=== PATIENT | female | born 1970 | race Two or more races ===

== ENCOUNTER 2018-08-02 07:46 | Inpatient (IN) | payer MEDICAID ==
[~2018-08-02] VITALS: Ht 157.5 cm; Wt 79.4 kg
[~2018-08-02 07:46] MED LIST: AMBIEN10 MG ORAL; CALCITRIOL0.25 MCG PO; CARVEDILOL3.125 MG ORAL; CELLCEPT250 MG ORAL; CIPROFLOXACIN250 MG PO; COREG25 MG ORAL; KEFLEX500 M1 ORAL; MACROBID100 MG ORAL; MAG-OX 400400 MG ORAL; MYCOPHENOLATE500 MG PO; OYSCO 500+D TA1 EAC1 PO; PREDNISONE1 MG PO; PROGRAF0.5 MG PO; TYLENOL EXTRA500 MG ORAL; magnesium sulfate
[2018-08-02] MEDS ORDERED: BENAZEPRIL HCL10 MG ORAL (07:51)
[2018-08-02] MEDS ORDERED: Metoclopramide 10mg/2ml Inj IVP ONE (08:00)
[2018-08-02] MEDS ORDERED: DiphenhydrAMINE 50mg/ml Inj IVP ONE (08:00)
--- NOTE | 2018-08-02 08:06 | Emergency Room Report ---
History of Present Illness General Chief Complaint: Abdominal Pain Source: Patient, EMS Present Illness HPI Patient presents with complaints of lower abdominal pain bilateral suprapubic some radiation to the right flank area Reports increased vomiting Low-grade fever patient feels that she has a bladder infection Denies any chest pain or shortness of breath Denies any fall or trauma patient reports that her urine also has foul smell and she has some discomfort With urination Allergies: Coded Allergies: MORPHINE (Unverified Allergy, Unknown, 03/22/14) SULFA (SULFONAMIDE ANTIBIOTICS) (Unverified Allergy, Unknown, 03/22/14) Uncoded Allergies: SULFA (Allergy, Unknown, 08/02/18) Patient History Past Medical History: see triage record Pertinent Family History: none Now: No Reviewed Nursing Documentation: PMH: Agreed; PSxH: Agreed Nursing Documentation-PMH Hx Cardiac Problems: Yes Hx Hypertension: Yes Hx Cancer: No Hx Gastrointestinal Problems: Yes - Hepatitis C Hx Dialysis: Yes - hx of dialysis,kidney transplant in 2004,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 Hx Neurological Problems: No Review of Systems All Other Systems: negative except mentioned in HPI Physical Exam Vital Signs Date Time Temp Pulse Resp B/P (MAP) Pulse Ox O2 Delivery O2 Flow Rate FiO2 08/02/18 07:40 102.9 108 19 166/79 (108) 99 Room Air Sp02 EP Interpretation: reviewed, normal General Appearance: mild distress - Appears uncomfortable Head: normocephalic, atraumatic Eyes: bilateral eye PERRL, bilateral eye EOMI ENT: hearing grossly normal, normal pharynx, TMs + canals normal, uvula midline Neck: full range of motion, supple, no meningismus, no bony tend Respiratory: lungs clear, normal breath sounds, no rhonchi, no respiratory distress, no retraction, no accessory muscle use Cardiovascular #1: normal peripheral pulses, regular rate, rhythm, no edema, no gallop, no JVD, no murmur Gastrointestinal: normal bowel sounds, non tender - On palpation however subjectively points to suprapubic area bilateral, soft, no mass, no organomegaly , non-distended, no guarding, no hernia, no pulsatile mass, no rebound Genitourinary: no CVA tenderness Musculoskeletal: normal inspection Neurologic: oriented x3, responsive, 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 tested, motor strength/ tone normal, sensory intact Psychiatric: mood/affect normal Skin: normal color, no rash, warm/dry, palpation normal Lymphatic: normal inspection, no adenopathy Medical Decision Making Diagnostic Impression: Primary Impression: Pyelonephritis ER Course With the patient's history and examination, multiple differentials considered, including but not limited to , ectopic , ovarian torsion, gastritis, cholecystitis, pancreatitis, appendicitis Given the patient's complex history and Comorbidities given the severity of the UTI and the patient's presentation she requires more aggressive admission IV hydration and antibiotics CT imaging reveals some question of Inflammation around the transplant as well Labs Test 08/02/18 07:58 White Blood Count 11.9 K/UL (4.8-10.8) Red Blood Count 3.77 M/UL (4.20-5.40) Hemoglobin 12.4 G/DL (12.0-16.0) Hematocrit 33.9 % (37.0-47.0) Mean Corpuscular Volume 90 FL (80-99) Mean Corpuscular Hemoglobin 32.9 PG (27.0-31.0) Mean Corpuscular Hemoglobin Concent 36.6 G/DL (32.0-36.0) Red Cell Distribution Width 11.4 % (11.6-14.8) Platelet Count 237 K/UL (150-450) Mean Platelet Volume 7.6 FL (6.5-10.1) Neutrophils (%) (Auto) % (45.0-75.0) Lymphocytes (%) (Auto) % (20.0-45.0) Monocytes (%) (Auto) % (1.0-10.0) Eosinophils (%) (Auto) % (0.0-3.0) Basophils (%) (Auto) % (0.0-2.0) Urine Color Pale yellow Urine Appearance Cloudy Urine pH 8 (4.5-8.0) Urine Specific [place] 1.010 (1.005-1.035) Urine Protein 3+ (NEGATIVE) Urine Glucose (UA) Negative (NEGATIVE) Urine Ketones Negative (NEGATIVE) Urine Blood 5+ (NEGATIVE) Urine Nitrite Negative (NEGATIVE) Urine Bilirubin Negative (NEGATIVE) Urine Urobilinogen Normal MG/DL (0.0-1.0) Urine Leukocyte Esterase 3+ (NEGATIVE) Urine RBC 10-15 /HPF (0 - 2) Urine WBC 30-40 /HPF (0 - 2) Urine Squamous Epithelial Cells Many /LPF (NONE/OCC) Urine Bacteria Few /HPF (NONE) Urine HCG, Qualitative Negative (NEGATIVE) Sodium Level 139 MMOL/L (136-145) Potassium Level 4.0 MMOL/L (3.5-5.1) Chloride Level 101 MMOL/L (98-107) Carbon Dioxide Level 23 MMOL/L (21-32) Anion Gap 15 mmol/L (5-15) Blood Urea Nitrogen 19 mg/dL (7-18) Creatinine 1.2 MG/DL (0.55-1.30) Estimat Glomerular Filtration Rate 48.6 mL/min (>60) Glucose Level 124 MG/DL (74-106) Calcium Level 9.2 MG/DL (8.5-10.1) Total Bilirubin 0.8 MG/DL (0.2-1.0) Aspartate Amino Transf (AST/SGOT) 15 U/L (15-37) Alanine Aminotransferase (ALT/SGPT) 19 U/L (12-78) Alkaline Phosphatase 46 U/L (46-116) Total Protein 8.6 G/DL (6.4-8.2) Albumin 3.7 G/DL (3.4-5.0) Globulin 4.9 g/dL Albumin/Globulin Ratio 0.8 (1.0-2.7) Lipase 130 U/L (73-393) Rhythm Strip Diag. Results EP Interpretation: yes Rate: 77 Rhythm: NSR, no PVC's, no ectopy CT/MRI/US Diagnostic Results CT/MRI/US Diagnostic Results : Impression CT abdomen pelvisImpression: Right iliac fossa transplant kidney. This appears minimally enlarged and there is suggestion of slight perinephric inflammation as well as periureteral inflammation. This could indicate ureteritis/nephritis. There is very questionable slight indistinctness of the bladder wall as well, could indicate cystitis in the appropriate clinical setting. Correlation with clinical laboratory findings is recommended 6.6 cm unilocular right ovarian cyst. Given the midline location of the cyst and ovary and prominence of the pedicle, the possibility of torsion should be considered. Correlation with clinical findings is recommended, consideration for ultrasound of the pelvis if clinically indicated Limited assessment of the GI tract, due to lack of enteric contrast administration. Atrophic wiyot kidneys Equivocal colonic diverticulosis. No evidence of diverticulitis Last Vital Signs Date Time Temp Pulse Resp B/P (MAP) Pulse Ox O2 Delivery O2 Flow Rate FiO2 08/02/18 07:40 102.9 108 19 166/79 (108) 99 Room Air Status: improved Disposition: ADMITTED INPATIENT Condition: Serious Davie Valdez DO Aug 02, 2018 08:06
--- NOTE | 2018-08-02 08:08 | NUR ---
ED Nurse Note: Pt BIBA from home due to R sided abdominal pain that radiates to back with nausea and diarrhea since yesterday. Pain 9/10 varinder. Last bowel movement was this morning. No emesis noted at arrival. AOx4, BP 167/92, HR 108, ERMD awre. Will cont to monitor.
[2018-08-02 08:09] LABS: APPEARANCE,URINE CLOUDY; BILIRUBIN, URINE NEGATIVE (NEGATIVE); COLOR,URINE PALE YELLOW; GLUCOSE, URINE (UA) NEGATIVE (NEGATIVE); HEMATOCRIT 33.9 % (37.0-47.0); HEMOGLOBIN 12.4 G/DL (12.0-16.0); KETONES,URINE NEGATIVE (NEGATIVE); LEUKOCYTE ESTERASE ,URINE 3+ (NEGATIVE); MEAN CORPUSCULAR VOLUME 90 FL (80-99); NITRITE,URINE NEGATIVE (NEGATIVE); PH,URINE 8 (4.5-8.0); PLATELET COUNT 237 K/UL (150-450); PROTEIN,URINE 3+ (NEGATIVE); RED BLOOD COUNT 3.77 M/UL (4.20-5.40); RED CELL DISTRIBUTION WIDTH 11.4 % (11.6-14.8); UROBILINOGEN,URINE NORMAL MG/DL (0.0-1.0); WHITE BLOOD COUNT 11.9 K/UL (4.8-10.8)
[2018-08-02 08:10] VITALS: BP 167/92
[2018-08-02 08:18] LABS: ANION GAP 15 mmol/L (5-15); BLOOD UREA NITROGEN 19 mg/dL (7-18); CALCIUM 9.2 MG/DL (8.5-10.1); CARBON DIOXIDE 23 MMOL/L (21-32); CHLORIDE 101 MMOL/L (98-107); CREATININE 1.2 MG/DL (0.55-1.30); SODIUM 139 MMOL/L (136-145)
[2018-08-02 08:23] LABS: ALANINE AMINOTRANSFERASE 19 U/L (12-78); ALBUMIN 3.7 G/DL (3.4-5.0); ALBUMIN/GLOBULIN RATIO 0.8 (1.0-2.7); ALKALINE PHOSPHATASE 46 U/L (46-116); ASPARTATE AMINO TRANSFERASE 15 U/L (15-37); BILIRUBIN,TOTAL 0.8 MG/DL (0.2-1.0)
--- NOTE | 2018-08-02 08:34 | NUR ---
ED Nurse Note: Pt down to CT for imaging, confirmed with ERMD w/o Contrast.
--- NOTE | 2018-08-02 08:56 | NUR ---
ED Nurse Note: Pt back from CT, no sign of acute distress.
--- NOTE | 2018-08-02 09:22 | Diagnostic Imaging Report ---
Indication: Lower abdominal pain, nausea, vomiting, low-grade fever Technique: Spiral acquisitions obtained through the abdomen and pelvis. No oral contrast utilized, per emergency room physician request No IV contrast utilized, per emergency room physician request.. Multiplanar reconstructions were generated. Total dose length product 840.72 mGycm. CTDIvol(s) 16.82 mGy. Dose reduction achieved using automated exposure control Comparison: None Findings: There is a right iliac fossa transplant kidney. There is a slight degree of perinephric fat stranding, particularly surrounding the upper pole. There is slight fat stranding surrounding the transplant ureter as well. No definite bladder wall thickening, although the peripheral bladder margins appear equivocally very slightly indistinct. No definite hydronephrosis. No definite focal renal mass, although lack of IV contrast limits assessment for such. The robinson kidneys are atrophic. Lack of enteric contrast limits assessment of the GI tract. There are equivocally a few colonic diverticula. No evidence of diverticulitis. The appendix is normal. No small bowel distention. Distal esophagus, stomach, duodenum are unremarkable. Lack of IV contrast limits assessment of the other solid organs. The liver, gallbladder, bile ducts, pancreas, spleen, adrenals are all grossly unremarkable. No retroperitoneal or mesenteric mass or adenopathy. There is a large 6.6 cm long axis dimension unilocular cyst coming off of the right ovary. This is situated in the midline. The wall does not appear to be thickened up but there is questionably slight thickening of the ovarian pedicle. There is an intrauterine device in place. The included lung bases are clear. The bones demonstrate mild degenerative changes of the lumbosacral junction Impression: Right iliac fossa transplant kidney. This appears minimally enlarged and there is suggestion of slight perinephric inflammation as well as periureteral inflammation. This could indicate ureteritis/nephritis. There is very questionable slight indistinctness of the bladder wall as well, could indicate cystitis in the appropriate clinical setting. Correlation with clinical laboratory findings is recommended 6.6 cm unilocular right ovarian cyst. Given the midline location of the cyst and ovary and prominence of the pedicle, the possibility of torsion should be considered. Correlation with clinical findings is recommended, consideration for ultrasound of the pelvis if clinically indicated Limited assessment of the GI tract, due to lack of enteric contrast administration. Atrophic robinson kidneys Equivocal colonic diverticulosis. No evidence of diverticulitis Findings discussed by phone with Dr. Valdez in the emergency room at the time of interpretation The CT scanner at [facility] is accredited by the [employer] and the scans are performed using protocols designed to limit radiation exposure to as low as reasonably achievable to attain images of sufficient resolution adequate for diagnostic evaluation.
[2018-08-02] MEDS ORDERED: cefTRIAXone 1 GM in NS 55 ML IVPB ONE (09:30)
[2018-08-02] MEDS ORDERED: Acetaminophen 500mg (ES) tab ORAL ONE (10:40)
[2018-08-02] MEDS: Acetaminophen 500mg (ES) tab ORAL ONE ×4 (10:41→10:59)
[2018-08-02 11:29] VITALS: BP 174/94
[2018-08-02] MEDS ORDERED: Morphine Sulfate 4mg/ml Inj (IV USE ONLY) IVP PRN (11:30)
[2018-08-02] MEDS ORDERED: Enoxaparin 40mg Inj SUBQ SCH (12:00)
[2018-08-02 12:01] VITALS: BP 135/79
--- NOTE | 2018-08-02 12:09 | NUR ---
ED Nurse Note: Report given to BERT Johnson at ext [phone]. Pt to be transfered to room 414-2 on [facility] per protocol.
[2018-08-02] MEDS ORDERED: Enoxaparin 30mg Inj SUBQ SCH (12:30)
[2018-08-02 13:00] VITALS: BP 121/62
--- NOTE | 2018-08-02 14:00 | NUR ---
NURSE NOTES: Dr butler ordered morphine but pt noted allergy to morphine, Dr notified and stated he will F/U. pharmacy endorsed. will continue to monitor.
--- NOTE | 2018-08-02 14:28 | NUR ---
NURSE NOTES: Received pt from RN YAEL JAIME. Pt is alert and orient x4 and speaks Malaysian. pt is in RA, no SOB or acute respiratory distress noted. pt has intact iv access R wrist 22g is running well. pt has fever and Dr FLANAGAN is notified about T, WBC and lab results, ordered Tylenol, noted and carried out. pt consumed lunch and tolerate well. all needs attended, bed is locked and is in the lowest position. call light within easy reach. will continue to monitor.
[2018-08-02 16:00] VITALS: BP 108/56
--- NOTE | 2018-08-02 17:20 | History and Physical ---
History of Present Illness General Date patient seen: Aug 02, 2018 Time patient seen: 15:00 Reason for Hospitalization: Abdominal Pain Present Illness HPI 47 y F with history of ESRD due to hypertensive nephropathy and emergency, s/p HD for 5 years and finally renal transplantation at [facility] on 09/12/04. She follows with the nephrology clinic at [facility] [place] and is in appropriate post renal transplant suppressive therapy with Prograft and Cellcept. She had a prior hospitalization 3 years ago at [facility] [place] due to Pyelonephritis and today presented to the ED with complaints of lower abdominal pain bilateral suprapubic some radiation to the right flank area, increased vomiting this morning and Low-grade fever. The patient had a temperature of 102 F at home and in the ED was found to have a UTI, CT scan concerning for perirenal stranding. Admission is requested. IVF and Ceftriaxone IV was started. Normal Lactate and no hemodynamic compromise. Blood cultures were not done in ED and added on admission orders. Allergies: Coded Allergies: MORPHINE (Unverified Allergy, Unknown, 03/22/14) SULFA (SULFONAMIDE ANTIBIOTICS) (Unverified Allergy, Unknown, 03/22/14) Uncoded Allergies: SULFA (Allergy, Unknown, 08/02/18) Medication History Scheduled Benazepril Hcl* (Benazepril Hcl*), 10 MG ORAL DAILY, (Reported) Calcitriol (Calcitriol), 0.25 MCG PO TWICE A DAY, (Reported) Calcium Carbonate/Vitamin D3 ([place] 500+D Tablet), 1 EACH PO THREE TIMES A DAY, (Reported) Carvedilol (Coreg), 25 MG ORAL BID, (Reported) Cephalexin (Cephalexin), 500 MG ORAL FOUR TIMES A DAY Magnesium Oxide (Magnesium Oxide), 400 MG ORAL THREE TIMES A DAY, (Reported) Mycophenolate Mofetil (Cellcept), 500 MG ORAL EVERY 12 HOURS, (Reported) Mycophenolate Mofetil (Mycophenolate Mofetil), 500 MG PO TWICE A DAY, (Reported) Nitrofurantoin Monohyd/M-Cryst (Nitrofurantoin [place]-Mcr 100 mg), 100 MG ORAL Q12H Prednisone (Prednisone), 3 MG PO DAILY, (Reported) Tacrolimus (Prograf), 0.5 MG PO BID, (Reported) Scheduled PRN Acetaminophen* (Tylenol Extra Strength*), 500 MG ORAL Q6H PRN for Mild Pain/ Temp > 100.5, (Reported) Zolpidem Tartrate* (Ambien*), 10 MG ORAL BEDTIME PRN for Insomnia, (Reported) Miscellaneous Medications [magnesium sulfate], (Reported) Patient History Healthcare decision maker Resuscitation status Full Code Advanced Directive on File No Review of Systems Genitourinary: Reports: dysuria, frequency Physical Exam General Appearance: WD/WN Lines, tubes and drains: peripheral HEENT: normocephalic, atraumatic Neck: non-tender Respiratory/Chest: chest wall non-tender, lungs clear Cardiovascular/Chest: normal peripheral pulses, normal rate Abdomen: normal bowel sounds, non tender Skin Exam: normal pigmentation Neurologic: supervisor agency appointments II-XII grossly normal Last 24 Hour Vital Signs Date Time Temp Pulse Resp B/P (MAP) Pulse Ox O2 Delivery O2 Flow Rate FiO2 08/02/18 16:00 99.6 87 18 108/56 (73) 96 08/02/18 15:32 100.0 08/02/18 13:00 101.4 102 19 121/62 (81) 96 08/02/18 13:00 Room Air 08/02/18 12:11 99.5 107 20 135/79 100 Room Air 08/02/18 12:01 99.5 107 20 135/79 100 Room Air 08/02/18 11:29 99.5 101 18 174/94 100 Room Air 08/02/18 11:29 99.5 08/02/18 08:10 102.9 108 19 167/92 99 Room Air 08/02/18 08:07 108 19 Room Air 08/02/18 07:40 102.9 108 19 166/79 (108) 99 Room Air Laboratory Tests Test 08/02/18 07:58 White Blood Count 11.9 K/UL (4.8-10.8) H Red Blood Count 3.77 M/UL (4.20-5.40) L Hemoglobin 12.4 G/DL (12.0-16.0) Hematocrit 33.9 % (37.0-47.0) L Mean Corpuscular Volume 90 FL (80-99) Mean Corpuscular Hemoglobin 32.9 PG (27.0-31.0) H Mean Corpuscular Hemoglobin Concent 36.6 G/DL (32.0-36.0) H Red Cell Distribution Width 11.4 % (11.6-14.8) L Platelet Count 237 K/UL (150-450) Mean Platelet Volume 7.6 FL (6.5-10.1) Neutrophils (%) (Auto) % (45.0-75.0) Lymphocytes (%) (Auto) % (20.0-45.0) Monocytes (%) (Auto) % (1.0-10.0) Eosinophils (%) (Auto) % (0.0-3.0) Basophils (%) (Auto) % (0.0-2.0) Differential Total Cells Counted 100 Neutrophils % (Manual) 84 % (45-75) H Lymphocytes % (Manual) 11 % (20-45) L Monocytes % (Manual) 5 % (1-10) Eosinophils % (Manual) 0 % (0-3) Basophils % (Manual) 0 % (0-2) Band Neutrophils 0 % (0-8) Platelet Estimate Adequate Platelet Morphology Normal Urine Color Pale yellow Urine Appearance Cloudy Urine pH 8 (4.5-8.0) Urine Specific [place] 1.010 (1.005-1.035) Urine Protein 3+ (NEGATIVE) H Urine Glucose (UA) Negative (NEGATIVE) Urine Ketones Negative (NEGATIVE) Urine Blood 5+ (NEGATIVE) H Urine Nitrite Negative (NEGATIVE) Urine Bilirubin Negative (NEGATIVE) Urine Urobilinogen Normal MG/DL (0.0-1.0) Urine Leukocyte Esterase 3+ (NEGATIVE) H Urine RBC 10-15 /HPF (0 - 2) H Urine WBC 30-40 /HPF (0 - 2) H Urine Squamous Epithelial Cells Many /LPF (NONE/OCC) H Urine Bacteria Few /HPF (NONE) Urine HCG, Qualitative Negative (NEGATIVE) Sodium Level 139 MMOL/L (136-145) Potassium Level 4.0 MMOL/L (3.5-5.1) Chloride Level 101 MMOL/L (98-107) Carbon Dioxide Level 23 MMOL/L (21-32) Anion Gap 15 mmol/L (5-15) Blood Urea Nitrogen 19 mg/dL (7-18) H Creatinine 1.2 MG/DL (0.55-1.30) Estimat Glomerular Filtration Rate 48.6 mL/min (>60) Glucose Level 124 MG/DL (74-106) H Calcium Level 9.2 MG/DL (8.5-10.1) Total Bilirubin 0.8 MG/DL (0.2-1.0) Aspartate Amino Transf (AST/SGOT) 15 U/L (15-37) Alanine Aminotransferase (ALT/SGPT) 19 U/L (12-78) Alkaline Phosphatase 46 U/L (46-116) Total Protein 8.6 G/DL (6.4-8.2) H Albumin 3.7 G/DL (3.4-5.0) Globulin 4.9 g/dL Albumin/Globulin Ratio 0.8 (1.0-2.7) L Lipase 130 U/L (73-393) Height (Feet): 5 Height (Inches): 2.00 Weight (Pounds): 175 Medications Current Medications Medications (Trade) Dose Ordered Sig/Aroldo Route PRN Reason Start Time Stop Time Status Last Admin Dose Admin Acetaminophen (Tylenol) 650 mg Q6H PRN ORAL Mild Pain/Temp > 100.5 08/02/18 14:30 09/01/18 14:29 08/02/18 15:02 Ceftriaxone Sodium 1 gm/ Dextrose 55 ml @ 110 mls/hr DAILY IVPB 08/03/18 09:00 08/10/18 08:59 Dextrose (Dextrose 50%) 25 ml Q30M PRN IV Hypoglycemia 08/02/18 11:30 09/01/18 11:29 Dextrose (Dextrose 50%) 50 ml Q30M PRN IV Hypoglycemia 08/02/18 11:30 09/01/18 11:29 Diphenhydramine HCl (Benadryl) 25 mg Q6H PRN ORAL Itching/Pruritis 08/02/18 11:30 09/01/18 11:29 Docusate Sodium (Colace) 100 mg EVERY 12 HOURS ORAL 08/02/18 21:00 09/01/18 20:59 Enoxaparin Sodium (Lovenox) 40 mg DAILY SUBQ 08/03/18 09:00 09/02/18 08:59 Lorazepam (Ativan) 1 mg Q4H PRN ORAL For Anxiety 08/02/18 11:30 08/09/18 11:29 Morphine Sulfate (Morphine Sulfate) 4 mg Q2H PRN IVP Severe Pain (Pain Scale 7-10) 08/02/18 11:30 08/09/18 11:29 UNV Ondansetron HCl (Zofran) 4 mg Q6H PRN IVP Nausea & Vomiting 08/02/18 11:30 09/01/18 11:29 Sodium Chloride 1,000 ml @ 100 mls/hr Q10H IVLG 08/02/18 12:21 09/01/18 12:20 08/02/18 12:50 Temazepam (Restoril) 15 mg HSPRN PRN ORAL Insomnia 08/02/18 21:00 08/09/18 20:59 Assessment/Plan Status: doing well, stable Assessment/Plan: 47 y/o F with prior ESRD on HD for 5 years and now s/p Renal transplantation since 2004 admitted with: # Pyelonephritis Continue IVF hydration Ceftriaxone IV pending culture Monitor temperature and vital signs, once fever is improved and urine cx data available can transition to PO antibiotics # s/p Renal transplant since 2004 Continue Prograft, cellcept, prednisone, spironolactone therapy. Consider nephrology consult if needed. Patient has been stable in her outpatient regimen. # Hypertension Continue Carvedilol, benazepril Monitor BP # History of R PCO Stable # Disposition Observation. Pending improvement, might need to be converted to inpatient. DVT ppx ambulatory Full code. Rafaela Redd MD Aug 02, 2018 17:20
--- NOTE | 2018-08-02 19:44 | NUR ---
HAND-OFF: Report given to BERT NEGRON.
[2018-08-02 20:00] VITALS: BP 158/83
--- NOTE | 2018-08-02 20:13 | NUR ---
NURSE NOTES: Received report from BERT Johnson. Patient A&Ox4, Lebanese speaking. On room air, no signs of distress or labored breathing. IV intact, patent, and infusing IV fluids. Bed in lowest position with call light in reach. Will continue with plan of care.
[2018-08-02] MEDS: Docusate 100mg cap ORAL SCH (20:58)
--- NOTE | 2018-08-02 21:30 | NUR ---
NURSE NOTES: Called MD to follow up with pain medication since morphine is contraindicated due to allergy. Left message. Waiting for response.
[2018-08-03] VITALS (7 sets, daily range): BP systolic 118–182; BP diastolic 71–99
--- NOTE | 2018-08-03 05:45 | NUR ---
NURSE NOTES: Called MD again to leave message about pain medication, blood pressure, and anti-rejection medication for kidney transplant. No answer. Charge nurse aware.
[2018-08-03 06:28] LABS: BASOPHILS % (AUTO) 0.3 % (0.0-2.0); EOSINOPHILS % (AUTO) 0.1 % (0.0-3.0); HEMATOCRIT 32.5 % (37.0-47.0); HEMOGLOBIN 11.6 G/DL (12.0-16.0); LYMPHOCYTES % (AUTO) 8.6 % (20.0-45.0); MEAN CORPUSCULAR VOLUME 91 FL (80-99); PLATELET COUNT 186 K/UL (150-450); RED BLOOD COUNT 3.56 M/UL (4.20-5.40); RED CELL DISTRIBUTION WIDTH 11.6 % (11.6-14.8); WHITE BLOOD COUNT 9.5 K/UL (4.8-10.8)
[2018-08-03 06:54] LABS: ANION GAP 12 mmol/L (5-15); BLOOD UREA NITROGEN 10 mg/dL (7-18); CALCIUM 8.4 MG/DL (8.5-10.1); CARBON DIOXIDE 25 MMOL/L (21-32); CHLORIDE 104 MMOL/L (98-107); CREATININE 1.2 MG/DL (0.55-1.30); POTASSIUM 3.4 MMOL/L (3.5-5.1); SODIUM 141 MMOL/L (136-145)
--- NOTE | 2018-08-03 07:35 | NUR ---
NURSE NOTES: Patient received resting in bed, alert and oriented. Responds appropriately. Denies pain or SOB at this time. RN to inquire physician regarding kidney transplant pills. IV site on right wrist patent and intact, running fluids at 100cc/hr. Bed locked in lowest position, call light placed within reach. Will continue to monitor.
--- NOTE | 2018-08-03 07:36 | NUR ---
HAND-OFF: Report given to BERT Chavez (Liz).
[2018-08-03] MEDS: Docusate 100mg cap ORAL SCH ×2 (08:28→20:48)
[2018-08-03] MEDS: cefTRIAXone 1gm/D5W 55ml IVPB SCH ×2 (08:28)
[2018-08-03] MEDS: Enoxaparin 40mg Inj SUBQ SCH (08:30)
--- NOTE | 2018-08-03 10:14 | NUR ---
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
--- NOTE | 2018-08-03 10:51 | NUR ---
*-* NO INSURANCE INFORMATION UNABLE TO SEND CLINICALS OR REVIEWS *-*
--- NOTE | 2018-08-03 10:54 | NUR ---
*-* INSURANCE *-* ALL CLINICALS AND REVIEWS HAVE BEEN FAXED TO: [facility] CHON: LESTER OLIVEIRA# [id number] F:[phone]
--- NOTE | 2018-08-03 17:04 | General Progress Note ---
Assessment/Plan Status: doing well, stable Assessment/Plan: Assessment/Plan: 47 y/o F with prior ESRD on HD for 5 years and now s/p Renal transplantation since 2004 admitted with: # Sepsis due to Pyelonephritis - Continue IVF hydration - Ceftriaxone IV pending culture, growing Gram neg rods, WBC improved - Monitor temperature and vital signs, once fever is improved and urine cx data available can transition to PO antibiotics # s/p Renal transplant since 2004 - Continue Prograft, cellcept, prednisone, spironolactone therapy. - Consider nephrology consult if needed. Patient has been stable in her outpatient regimen. # Hypertension - Continue Carvedilol, benazepril - Monitor BP # History of R PCO - Stable # Disposition Admit as inpatient. DVT ppx ambulatory Full code. Subjective Date patient seen: Aug 03, 2018 Time patient seen: 17:00 ROS Limited/Unobtainable: No Allergies: Coded Allergies: MORPHINE (Unverified Allergy, Unknown, 03/22/14) SULFA (SULFONAMIDE ANTIBIOTICS) (Unverified Allergy, Unknown, 03/22/14) Uncoded Allergies: SULFA (Allergy, Unknown, 08/02/18) Subjective Overnight events reviewed, no chest pain or dysponea, States abd pain improved, able to tolerate PO however slightly nauseous, is still having fevers, temp max over 102 Objective Last 24 Hour Vital Signs Date Time Temp Pulse Resp B/P (MAP) Pulse Ox O2 Delivery O2 Flow Rate FiO2 08/03/18 16:00 99.3 96 17 149/88 (108) 97 08/03/18 14:13 98.6 08/03/18 11:59 102.4 92 17 158/80 (106) 98 08/03/18 09:00 Room Air 08/03/18 08:00 99.7 91 16 118/71 (87) 98 08/03/18 05:50 102.6 104 146/91 (109) 08/03/18 04:30 102.8 111 20 182/99 (126) 98 08/03/18 00:00 99.9 93 18 132/75 (94) 97 08/02/18 22:59 102.1 08/02/18 21:51 103.7 08/02/18 21:00 Room Air 08/02/18 20:00 100.2 89 17 158/83 (108) 98 Intake and Output 08/02/18 08/03/18 18:59 06:59 Intake Total 1895 ml 900 ml Output Total 2 ml 7 ml Balance 1893 ml 893 ml Intake Oral 240 ml IV Total 1655 ml 900 ml Output Urine Total 2 ml 7 ml # Voids 1 # Bowel Movements 1 Laboratory Tests 08/03/18 05:15: White Blood Count 9.5, Red Blood Count 3.56L, Hemoglobin 11.6L, Hematocrit 32.5L , Mean Corpuscular Volume 91, Mean Corpuscular Hemoglobin 32.7H, Mean Corpuscular Hemoglobin Concent 35.9, Red Cell Distribution Width 11.6, Platelet Count 186, Mean Platelet Volume 7.5, Neutrophils (%) (Auto) 81.0H, Lymphocytes ( %) (Auto) 8.6L, Monocytes (%) (Auto) 10.0, Eosinophils (%) (Auto) 0.1, Basophils (%) (Auto) 0.3, Sodium Level 141, Potassium Level 3.4L, Chloride Level 104, Carbon Dioxide Level 25, Anion Gap 12, Blood Urea Nitrogen 10, Creatinine 1.2, Estimat Glomerular Filtration Rate 48.6, Glucose Level 142H, Calcium Level 8.4L, Magnesium Level 1.3L, Thyroid Stimulating Hormone (TSH) 2.728 Height (Feet): 5 Height (Inches): 2.00 Weight (Pounds): 175 Objective General: alert, cooperative, no distress, appears stated age Head: normocephalic, without obvious abnormality, atraumatic Eyes: conjunctivae/corneas clear. PERRL, EOM's intact Throat: lips, mucosa, and tongue normal. MMM Neck: supple, symmetrical, trachea midline, and no JVD Lungs: clear to auscultation bilaterally Heart: regular rate and rhythm, S1, S2 normal, no murmur, click, rub or gallop Abdomen: soft, non-tender, non-distended, bowel sounds normal; no masses or organomegaly Extremities: extremities normal, atraumatic, no cyanosis or edema Pulses: 2+ and symmetric Skin: skin color, texture, turgor normal; no rashes or lesions Neurologic: grossly normal, no focal deficits Marya Ralph MD Aug 03, 2018 17:04
--- NOTE | 2018-08-03 19:48 | NUR ---
HAND-OFF: Report given to Zachary NOEL.
--- NOTE | 2018-08-03 20:17 | NUR ---
NURSE NOTES: Pt is in bed, awake and alert. [place] speaking. No acute distress noted. Bed locked low in position,side rails up and call light within reach.
[2018-08-03] MEDS: Carvedilol 25mg Tab ORAL SCH (20:48)
[2018-08-03] MEDS: Mycophenolate 250mg cap ORAL SCH (20:48)
[2018-08-03] MEDS ORDERED: Mycophenolate 250mg cap ORAL SCH (21:00)
[2018-08-04] VITALS: BP 117/69
--- NOTE | 2018-08-04 01:38 | NUR ---
NURSE NOTES: Pt is in bed, asleep. No acute distress noted. Vitals stable.
[2018-08-04 04:00] VITALS: BP 124/66
--- NOTE | 2018-08-04 07:10 | NUR ---
HAND-OFF: Report given to Kathy Carmona RN.
--- NOTE | 2018-08-04 07:27 | NUR ---
NURSE NOTES: Patient received resting in bed, alert and oriented. Reports feeling better than yesterday. Denies pain, nausea or SOB. IV site patent and intact, running fluids. Bed locked in lowest position, call light placed within reach. Will continue to monitor.
[2018-08-04 08:00] VITALS: BP 119/78
[2018-08-04] MEDS: Mycophenolate 250mg cap ORAL SCH ×2 (08:21→20:21)
[2018-08-04] MEDS: Docusate 100mg cap ORAL SCH ×2 (08:21→20:19)
[2018-08-04] MEDS: Carvedilol 25mg Tab ORAL SCH ×2 (08:21→20:19)
[2018-08-04] MEDS: cefTRIAXone 1gm/D5W 55ml IVPB SCH ×2 (08:24)
[2018-08-04] MEDS: Enoxaparin 40mg Inj SUBQ SCH (08:38)
--- NOTE | 2018-08-04 11:41 | General Progress Note ---
Assessment/Plan Status: doing well, stable Assessment/Plan: Assessment/Plan: 47 y/o F with prior ESRD on HD for 5 years and now s/p Renal transplantation since 2004 admitted with: # Sepsis due to Pyelonephritis - Continue IVF hydration - Cont Ceftriaxone, growing sensitive E.Coli, WBC improved - Monitor temperature and vital signs, once fever is improved and urine cx data available can transition to PO antibiotics tomorrow and DC if remains afebrile # s/p Renal transplant since 2004 - Continue Prograft, cellcept, prednisone, spironolactone therapy. - Consider nephrology consult if needed. Patient has been stable in her outpatient regimen. # Hypertension - Continue Carvedilol, benazepril - Monitor BP # History of R PCO - Stable # Disposition DC home tomorrow if afebrile on PO Keflex. DVT ppx ambulatory Full code. Subjective Date patient seen: Aug 04, 2018 Time patient seen: 11:39 ROS Limited/Unobtainable: No Allergies: Coded Allergies: MORPHINE (Unverified Allergy, Unknown, 03/22/14) SULFA (SULFONAMIDE ANTIBIOTICS) (Unverified Allergy, Unknown, 03/22/14) Uncoded Allergies: SULFA (Allergy, Unknown, 08/02/18) Subjective Overnight events reviewed, no chest pain or dyspnea, States abd pain improved, able to tolerate PO however and no longer nauseous, Had a fever last night but none today. Overall feels much better, still c/o headache which she states is related to her HTN Objective Last 24 Hour Vital Signs Date Time Temp Pulse Resp B/P (MAP) Pulse Ox O2 Delivery O2 Flow Rate FiO2 08/04/18 09:00 Room Air 08/04/18 08:21 71 124/66 08/04/18 08:21 124/66 08/04/18 08:00 98.6 86 18 119/78 (92) 97 86 08/04/18 04:00 98.2 71 18 124/66 (85) 99 08/04/18 00:00 99.4 82 18 117/69 (85) 98 08/03/18 21:17 99.1 08/03/18 21:00 Room Air 08/03/18 20:48 99 159/93 08/03/18 20:38 101.2 99 20 159/93 (115) 99 08/03/18 16:00 99.3 96 17 149/88 (108) 97 08/03/18 11:59 102.4 92 17 158/80 (106) 98 Intake and Output 08/03/18 08/04/18 19:00 07:00 Intake Total 460 ml 1740 ml Output Total 8 ml Balance 452 ml 1740 ml Intake Oral 360 ml 640 ml IV Total 100 ml 1100 ml Output Urine Total 8 ml # Voids 2 # Bowel Movements 1 Height (Feet): 5 Height (Inches): 2.00 Weight (Pounds): 175 Objective General: alert, cooperative, no distress, appears stated age Head: normocephalic, without obvious abnormality, atraumatic Eyes: conjunctivae/corneas clear. PERRL, EOM's intact Throat: lips, mucosa, and tongue normal. MMM Neck: supple, symmetrical, trachea midline, and no JVD Lungs: clear to auscultation bilaterally Heart: regular rate and rhythm, S1, S2 normal, no murmur, click, rub or gallop Abdomen: soft, non-tender, non-distended, bowel sounds normal; no masses or organomegaly Extremities: extremities normal, atraumatic, no cyanosis or edema Pulses: 2+ and symmetric Skin: skin color, texture, turgor normal; no rashes or lesions Neurologic: grossly normal, no focal deficits Marya Ralph MD Aug 04, 2018 11:41
[2018-08-04 12:00] VITALS: BP 127/83
--- NOTE | 2018-08-04 13:08 | NUR ---
*-* INSURANCE *-* UPDATED CLINICALS HAVE BEEN FAXED TO: [facility] CHON: LESTER OLIVEIRA# [id number] F:[phone]
--- NOTE | 2018-08-04 15:19 | NUR ---
CASE MANAGEMENT: REVIEW 08/04/2018 SI:SEPSIS. TUBULO- INTERSTITIAL NEPHRITIS. T: 99.1 HR 77 RR 20 B/P 127/83 SATS 99% ON RA NO LABS TODAY IS: IVF @ 100 mL/HR COLACE PO Q12H CELLCEPT PO Q12H CEFTRIAXONE IV QD LOVENOX SUBQ QD LOTENSIN PO QD PREDNISONE PO QD COREG PO Q12H MED/SURG STATUS PLAN OF CARE: IV HYDRATION IV ANTIBX
[2018-08-04 16:00] VITALS: BP 125/79
--- NOTE | 2018-08-04 19:47 | NUR ---
HAND-OFF: Report given to Charity RN.
--- NOTE | 2018-08-04 19:50 | NUR ---
NURSE NOTES: RECEIVED PT FROM BERT STEPHENSON. PT IS AWAKE, AAO X4, ON ROOM AIR, NO ACUTE DISTRESS NOTED. IV ON RIGHT WRIST 22G IS INTACT AND PATENT, RUNNING NS 100 ML/HR. BED IS LOCKED AT THE LOWEST POSITION, BED ALARMS ACTIVE, SIDE RAILS UP X2, AND CALL LIGHT IS WITHIN REACH. WILL CONTINUE TO MONITOR.
[2018-08-04 20:00] VITALS: BP 157/82
[2018-08-05] VITALS: BP 136/77
[2018-08-05 04:00] VITALS: BP 152/86
--- NOTE | 2018-08-05 05:00 | NUR ---
NURSE NOTES: PT HAS 2 EPISODE OF HEADACHE THROUGHOUT THE NIGHT. PRN TYLENOL WAS GIVEN TWICE (2019, AND 251). HOWEVER, HEADACHE STILL PERSIST. PAGED COVERING DIMITRI ALVAREZ, BUT DID NOT GET A RESPONSE. PT ALSO REQUESTED RESTORIL FOR INSOMNIA, AND ZOFRAN D/T NAUSEA. LAST BP TAKEN WAS RECORDED AT 152/86 AND TEMP 101.6. WILL FOLLOW UP WITH DR. FLORENTINO.
[2018-08-05] MEDS: LORazepam 1mg tab ORAL PRN (05:09)
--- NOTE | 2018-08-05 07:30 | NUR ---
NURSE NOTES: Received pt from Charity, RN. Patient is in bed, awake and AO x 4. Room air. No respiratory distress noted. Complains of headache. BP 153/91 and temperature 101.3. Cooling measures have done. IV 22g on R wrist is intact and patent. patient is ambulatory. Bed is locked at the lowest position. call light within reach. Will continue to monitor
[2018-08-05 08:00] VITALS: BP 153/91
--- NOTE | 2018-08-05 08:00 | NUR ---
HAND-OFF: Report given to BERT CANAS and BERT CACERES.
[2018-08-05] MEDS: Mycophenolate 250mg cap ORAL SCH ×2 (08:50→20:27)
[2018-08-05] MEDS: cefTRIAXone 1gm/D5W 55ml IVPB SCH ×2 (08:52)
[2018-08-05] MEDS: Docusate 100mg cap ORAL SCH ×2 (08:52→20:27)
[2018-08-05] MEDS: Carvedilol 25mg Tab ORAL SCH ×2 (08:52→20:27)
[2018-08-05] MEDS: Enoxaparin 40mg Inj SUBQ SCH (08:56)
--- NOTE | 2018-08-05 10:30 | NUR ---
NURSE NOTES: Temperature was 101.3 at 0800. Gave tylenol and reassessed patient at 1030. Temperature is at 100.3. Temperature is trending down. Cooling measures done. Will continue to monitor
[2018-08-05 12:00] VITALS: BP 136/70
--- NOTE | 2018-08-05 12:42 | NUR ---
NURSE NOTES: Pt seen by Dr. Ralph and RN informed that pt had episode of high temperature and latest temperature is 99.5 and episode of elevated BP and headache with new order to do CBC, CMP today and tmr AM and blood culture today. Dr. Ralph will contact Dr. Azevedo ID
--- NOTE | 2018-08-05 12:55 | NUR ---
NURSE NOTES: Received order from Dr. Ralph to give tramadol 50mg q6h PRN for headache. Patient has allergy to morphine. aware. said ok to give medicine.
[2018-08-05] MEDS ORDERED: traMADol 50mg tab ORAL PRN (13:00)
--- NOTE | 2018-08-05 13:34 | General Progress Note ---
Assessment/Plan Status: doing well, stable Assessment/Plan: Assessment/Plan: 47 y/o F with prior ESRD on HD for 5 years and now s/p Renal transplantation since 2004 admitted with: # Sepsis due to Pyelonephritis - Continue IVF hydration - Cont Ceftriaxone, growing sensitive E.Coli, WBC improved - Consult ID for abx guidance given pt is still febrile and on immune suppression # s/p Renal transplant since 2004 - Continue Prograft, cellcept, prednisone, spironolactone therapy. - Consider nephrology consult if needed. Patient has been stable in her outpatient regimen. # Hypertension - Continue Carvedilol, benazepril - Monitor BP # History of R PCO - Stable # Disposition DC home when consistently afebrile on PO abx. DVT ppx ambulatory Full code. Subjective Date patient seen: Aug 05, 2018 Time patient seen: 13:33 ROS Limited/Unobtainable: No Allergies: Coded Allergies: MORPHINE (Unverified Allergy, Unknown, 03/22/14) SULFA (SULFONAMIDE ANTIBIOTICS) (Unverified Allergy, Unknown, 03/22/14) Uncoded Allergies: SULFA (Allergy, Unknown, 08/02/18) Subjective Overnight events reviewed, no chest pain or dyspnea, States abd pain improved, able to tolerate PO however and no longer nauseous, Persistently febrile. Headache is worse today, which she states is related to her HTN Objective Last 24 Hour Vital Signs Date Time Temp Pulse Resp B/P (MAP) Pulse Ox O2 Delivery O2 Flow Rate FiO2 08/05/18 12:00 99.5 82 20 136/70 (92) 97 08/05/18 09:21 100.3 08/05/18 09:00 Room Air 08/05/18 08:52 92 153/91 08/05/18 08:52 153/91 08/05/18 08:00 101.3 92 15 153/91 (111) 92 08/05/18 04:00 101.6 92 19 152/86 (108) 97 08/05/18 00:00 98.3 76 18 136/77 (96) 95 08/04/18 21:00 Room Air 08/04/18 20:19 82 157/82 08/04/18 20:00 98.8 82 18 157/82 (107) 97 08/04/18 16:00 98.9 80 19 125/79 (94) 98 80 Intake and Output 08/04/18 08/05/18 19:00 07:00 Intake Total 500 ml 1300 ml Balance 500 ml 1300 ml Intake Oral 500 ml 500 ml IV Total 800 ml # Voids 5 4 # Bowel Movements 1 Height (Feet): 5 Height (Inches): 2.00 Weight (Pounds): 175 Objective General: alert, cooperative, no distress, appears stated age Head: normocephalic, without obvious abnormality, atraumatic Eyes: conjunctivae/corneas clear. PERRL, EOM's intact Throat: lips, mucosa, and tongue normal. MMM Neck: supple, symmetrical, trachea midline, and no JVD Lungs: clear to auscultation bilaterally Heart: regular rate and rhythm, S1, S2 normal, no murmur, click, rub or gallop Abdomen: soft, non-tender, non-distended, bowel sounds normal; no masses or organomegaly Extremities: extremities normal, atraumatic, no cyanosis or edema Pulses: 2+ and symmetric Skin: skin color, texture, turgor normal; no rashes or lesions Neurologic: grossly normal, no focal deficits Marya Ralph MD Aug 05, 2018 13:34
[2018-08-05 13:44] LABS: BASOPHILS % (AUTO) 0.2 % (0.0-2.0); EOSINOPHILS % (AUTO) 0.1 % (0.0-3.0); HEMATOCRIT 28.5 % (37.0-47.0); HEMOGLOBIN 9.6 G/DL (12.0-16.0); LYMPHOCYTES % (AUTO) 14.2 % (20.0-45.0); MEAN CORPUSCULAR VOLUME 91 FL (80-99); MONOCYTES % (AUTO) 8.5 % (1.0-10.0); PLATELET COUNT 160 K/UL (150-450); RED BLOOD COUNT 3.14 M/UL (4.20-5.40); RED CELL DISTRIBUTION WIDTH 11.8 % (11.6-14.8); WHITE BLOOD COUNT 6.4 K/UL (4.8-10.8)
[2018-08-05 14:02] LABS: ALANINE AMINOTRANSFERASE 23 U/L (12-78); ALBUMIN 3.1 G/DL (3.4-5.0); ALBUMIN/GLOBULIN RATIO 0.8 (1.0-2.7); ALKALINE PHOSPHATASE 38 U/L (46-116); ANION GAP 13 mmol/L (5-15); ASPARTATE AMINO TRANSFERASE 23 U/L (15-37); BILIRUBIN,TOTAL 0.1 MG/DL (0.2-1.0); BLOOD UREA NITROGEN 8 mg/dL (7-18); CALCIUM 7.7 MG/DL (8.5-10.1); CARBON DIOXIDE 22 MMOL/L (21-32); CHLORIDE 105 MMOL/L (98-107); POTASSIUM 3.8 MMOL/L (3.5-5.1); SODIUM 140 MMOL/L (136-145)
--- NOTE | 2018-08-05 15:04 | NUR ---
CASE MANAGEMENT: REVIEW 08/05/2018 SI:SEPSIS. TUBULO- INTERSTITIAL NEPHRITIS. T: 101.6 HR 92 RR 19 B/P 152/86 SATS 97% ON RA G;U 187 CA 7.7 TBILI 0.1 ALP 38 IS: IVF @ 100 mL/HR COLACE PO Q12H CELLCEPT PO Q12H CEFTRIAXONE IV QD LOVENOX SUBQ QD LOTENSIN PO QD PREDNISONE PO QD COREG PO Q12H MED/SURG STATUS PLAN OF CARE: IV HYDRATION IV ANTIBX HOME WHEN AFEBRILE
[2018-08-05 16:00] VITALS: BP 137/74
--- NOTE | 2018-08-05 18:06 | Infectious Diseases Prog Note ---
Assessment/Plan Assessment/Plan Full consult to follow: A) 1) e.coli uti/pyelonephritis, sepsis, fevers, leukocytosis 2) renal transplant patient 3) pmh noted 4) allergies - sulfa, morphine P) 1) rocphin - day # 3 abx 2) monitor temperatures 3) monitor labs 4) ct noted 5) thank you Subjective Allergies: Coded Allergies: MORPHINE (Unverified Allergy, Unknown, 03/22/14) SULFA (SULFONAMIDE ANTIBIOTICS) (Unverified Allergy, Unknown, 03/22/14) Uncoded Allergies: SULFA (Allergy, Unknown, 08/02/18) Objective Vital Signs Last 24 Hour Vital Signs Date Time Temp Pulse Resp B/P (MAP) Pulse Ox O2 Delivery O2 Flow Rate FiO2 08/05/18 16:00 98.4 79 18 137/74 (95) 97 08/05/18 12:00 99.5 82 20 136/70 (92) 97 08/05/18 09:21 100.3 08/05/18 09:00 Room Air 08/05/18 08:52 92 153/91 08/05/18 08:52 153/91 08/05/18 08:00 101.3 92 15 153/91 (111) 92 08/05/18 04:00 101.6 92 19 152/86 (108) 97 08/05/18 00:00 98.3 76 18 136/77 (96) 95 08/04/18 21:00 Room Air 08/04/18 20:19 82 157/82 08/04/18 20:00 98.8 82 18 157/82 (107) 97 Height (Feet): 5 Height (Inches): 2.00 Weight (Pounds): 175 Laboratory Tests Test 08/05/18 13:15 08/05/18 13:30 Sodium Level 140 MMOL/L (136-145) Potassium Level 3.8 MMOL/L (3.5-5.1) Chloride Level 105 MMOL/L (98-107) Carbon Dioxide Level 22 MMOL/L (21-32) Anion Gap 13 mmol/L (5-15) Blood Urea Nitrogen 8 mg/dL (7-18) Creatinine 1.0 MG/DL (0.55-1.30) Estimat Glomerular Filtration Rate > 60 mL/min (>60) Glucose Level 187 MG/DL (74-106) H Calcium Level 7.7 MG/DL (8.5-10.1) L Total Bilirubin 0.1 MG/DL (0.2-1.0) L Aspartate Amino Transf (AST/SGOT) 23 U/L (15-37) Alanine Aminotransferase (ALT/SGPT) 23 U/L (12-78) Alkaline Phosphatase 38 U/L (46-116) L Total Protein 7.1 G/DL (6.4-8.2) Albumin 3.1 G/DL (3.4-5.0) L Globulin 4.0 g/dL Albumin/Globulin Ratio 0.8 (1.0-2.7) L White Blood Count 6.4 K/UL (4.8-10.8) Red Blood Count 3.14 M/UL (4.20-5.40) L Hemoglobin 9.6 G/DL (12.0-16.0) L Hematocrit 28.5 % (37.0-47.0) L Mean Corpuscular Volume 91 FL (80-99) Mean Corpuscular Hemoglobin 30.5 PG (27.0-31.0) Mean Corpuscular Hemoglobin Concent 33.6 G/DL (32.0-36.0) Red Cell Distribution Width 11.8 % (11.6-14.8) Platelet Count 160 K/UL (150-450) Mean Platelet Volume 7.5 FL (6.5-10.1) Neutrophils (%) (Auto) 77.0 % (45.0-75.0) H Lymphocytes (%) (Auto) 14.2 % (20.0-45.0) L Monocytes (%) (Auto) 8.5 % (1.0-10.0) Eosinophils (%) (Auto) 0.1 % (0.0-3.0) Basophils (%) (Auto) 0.2 % (0.0-2.0) Current Medications Medications (Trade) Dose Ordered Sig/Aroldo Route PRN Reason Start Time Stop Time Status Last Admin Dose Admin Acetaminophen (Tylenol) 650 mg Q6H PRN ORAL Mild Pain/Temp > 100.5 08/02/18 14:30 09/01/18 14:29 08/05/18 08:51 Benazepril HCl (Lotensin) 40 mg DAILY ORAL 08/04/18 09:00 09/03/18 08:59 08/05/18 08:52 Carvedilol (Coreg) 25 mg Q12HR ORAL 08/03/18 21:00 09/02/18 20:59 08/05/18 08:52 Ceftriaxone Sodium 1 gm/ Dextrose 55 ml @ 110 mls/hr DAILY IVPB 08/03/18 09:00 08/10/18 08:59 08/05/18 08:52 Dextrose (Dextrose 50%) 25 ml Q30M PRN IV Hypoglycemia 08/02/18 11:30 09/01/18 11:29 Dextrose (Dextrose 50%) 50 ml Q30M PRN IV Hypoglycemia 08/02/18 11:30 09/01/18 11:29 Diphenhydramine HCl (Benadryl) 25 mg Q6H PRN ORAL Itching/Pruritis 08/02/18 11:30 09/01/18 11:29 Docusate Sodium (Colace) 100 mg EVERY 12 HOURS ORAL 08/02/18 21:00 09/01/18 20:59 08/05/18 08:52 Enoxaparin Sodium (Lovenox) 40 mg DAILY SUBQ 08/03/18 09:00 09/02/18 08:59 08/05/18 08:56 Lorazepam (Ativan) 1 mg Q4H PRN ORAL For Anxiety 08/02/18 11:30 08/09/18 11:29 08/05/18 05:09 Mycophenolate Mofetil (Cellcept) 500 mg EVERY 12 HOURS ORAL 08/03/18 21:00 09/02/18 20:59 08/05/18 08:50 Ondansetron HCl (Zofran) 4 mg Q6H PRN IVP Nausea & Vomiting 08/02/18 11:30 09/01/18 11:29 08/05/18 04:36 Prednisone (predniSONE) 3 mg DAILY ORAL 08/03/18 21:00 09/02/18 20:59 08/05/18 08:50 Sodium Chloride 1,000 ml @ 100 mls/hr Q10H IVLG 08/02/18 12:21 09/01/18 12:20 08/05/18 14:12 Tacrolimus (Prograf) 0.5 mg DAILY ORAL 08/03/18 21:00 09/02/18 20:59 08/05/18 10:12 Temazepam (Restoril) 15 mg HSPRN PRN ORAL Insomnia 08/02/18 21:00 08/09/18 20:59 08/04/18 22:07 Tramadol HCl (Ultram) 50 mg Q6H PRN ORAL headache 08/05/18 13:00 08/12/18 12:59 Chuck Azevedo MD Aug 05, 2018 18:06
--- NOTE | 2018-08-05 19:20 | NUR ---
HAND-OFF: Report given to BERT Maloney.
--- NOTE | 2018-08-05 19:44 | NUR ---
NURSE NOTES: Received patient awake, ambulating in room, in good spirits. No s/s of acute distress, no c/o pain at this time. IVF running, IV access asymptomatic. Paged Dr Barker (covering for Dr Ralph), to discuss patient's medication requests.
[2018-08-05 20:00] VITALS: BP 149/89
[2018-08-06] VITALS: BP 156/80
[2018-08-06] MEDS: LORazepam 1mg tab ORAL PRN (02:34)
[2018-08-06 04:00] VITALS: BP 134/84
--- NOTE | 2018-08-06 07:04 | NUR ---
HAND-OFF: Report given to BERT Nam.
--- NOTE | 2018-08-06 07:15 | NUR ---
NURSE NOTES: Received patient in bed, sleeping. No s/s of distress. IV on R wrist intact and patent, running fluid at 100 ml/hr. Bed in the lowest position and locked. Will continue to monitor
[2018-08-06 08:00] VITALS: BP 130/80
[2018-08-06 08:19] LABS: BASOPHILS % (AUTO) 0.6 % (0.0-2.0); EOSINOPHILS % (AUTO) 0.9 % (0.0-3.0); HEMATOCRIT 22.8 % (37.0-47.0); HEMOGLOBIN 8.2 G/DL (12.0-16.0); LYMPHOCYTES % (AUTO) 26.9 % (20.0-45.0); MEAN CORPUSCULAR VOLUME 91 FL (80-99); MONOCYTES % (AUTO) 10.7 % (1.0-10.0); NEUTROPHILS % (AUTO) 60.9 % (45.0-75.0); PLATELET COUNT 145 K/UL (150-450); RED BLOOD COUNT 2.51 M/UL (4.20-5.40); WHITE BLOOD COUNT 5.8 K/UL (4.8-10.8)
[2018-08-06 08:39] LABS: ALANINE AMINOTRANSFERASE 30 U/L (12-78); ALBUMIN 2.5 G/DL (3.4-5.0); ALBUMIN/GLOBULIN RATIO 0.7 (1.0-2.7); ALKALINE PHOSPHATASE 30 U/L (46-116); ANION GAP 12 mmol/L (5-15); ASPARTATE AMINO TRANSFERASE 28 U/L (15-37); BILIRUBIN,TOTAL 0.2 MG/DL (0.2-1.0); BLOOD UREA NITROGEN 8 mg/dL (7-18); CALCIUM 6.5 MG/DL (8.5-10.1); CARBON DIOXIDE 22 MMOL/L (21-32); CHLORIDE 111 MMOL/L (98-107); CREATININE 0.9 MG/DL (0.55-1.30); POTASSIUM 3.1 MMOL/L (3.5-5.1); SODIUM 145 MMOL/L (136-145)
[2018-08-06] MEDS: Docusate 100mg cap ORAL SCH ×2 (08:48→17:14)
[2018-08-06] MEDS: Mycophenolate 250mg cap ORAL SCH ×2 (08:50→21:18)
[2018-08-06] MEDS: Carvedilol 25mg Tab ORAL SCH ×2 (08:52→21:18)
[2018-08-06] MEDS: Enoxaparin 40mg Inj SUBQ SCH (08:54)
[2018-08-06] MEDS: cefTRIAXone 1gm/D5W 55ml IVPB SCH ×2 (08:54)
[2018-08-06 12:00] VITALS: BP 125/80
--- NOTE | 2018-08-06 12:40 | NUR ---
NURSE NOTES: Removed IV on R wrist and inserted new 22g IV on R upper arm. No s/s of infection on IV removal site
--- NOTE | 2018-08-06 14:20 | NUR ---
NURSE NOTES: Patient stated that she feels like she's been getting too much IV fluids and she feels like her face and arms are swollen. No pitting edema. Patient also said she takes lasix at home. Notified Dr. Ralph. Pt was seen by and gave new order to DC IV fluid.
--- NOTE | 2018-08-06 14:51 | General Progress Note ---
Assessment/Plan Status: doing well, stable Assessment/Plan: Assessment/Plan: 47 y/o F with prior ESRD on HD for 5 years and now s/p Renal transplantation since 2004 admitted with: # Sepsis due to Pyelonephritis - Continue IVF hydration - Cont Ceftriaxone, growing sensitive E.Coli, WBC improved - Consult ID for abx guidance given pt is still febrile and on immune suppression # s/p Renal transplant since 2004 - Continue Prograft, cellcept, prednisone, spironolactone therapy. - Consider nephrology consult if needed. Patient has been stable in her outpatient regimen. # Hypertension - Continue Carvedilol, benazepril - Monitor BP # History of R PCO - Stable # Disposition DC home when consistently afebrile on PO abx, likely tomorrow. DVT ppx ambulatory Full code. Subjective Date patient seen: Aug 06, 2018 Time patient seen: 14:51 ROS Limited/Unobtainable: No Allergies: Coded Allergies: MORPHINE (Unverified Allergy, Unknown, 03/22/14) SULFA (SULFONAMIDE ANTIBIOTICS) (Unverified Allergy, Unknown, 03/22/14) Uncoded Allergies: SULFA (Allergy, Unknown, 08/02/18) Subjective Overnight events reviewed, no chest pain or dyspnea, States abd pain improved, able to tolerate PO however and no longer nauseous, Persistently febrile. Headache is worse today, which she states is related to her HTN Objective Last 24 Hour Vital Signs Date Time Temp Pulse Resp B/P (MAP) Pulse Ox O2 Delivery O2 Flow Rate FiO2 08/06/18 12:00 99.5 79 20 125/80 (95) 96 08/06/18 09:00 Room Air 08/06/18 08:52 77 130/80 08/06/18 08:51 130/80 08/06/18 08:00 98.2 77 18 130/80 (97) 98 08/06/18 04:00 98.5 80 18 134/84 (101) 97 08/06/18 03:05 99.3 08/06/18 00:00 99.3 80 18 156/80 (105) 97 08/05/18 21:56 Room Air 08/05/18 20:27 79 137/74 08/05/18 20:00 98.9 84 18 149/89 (109) 97 08/05/18 16:00 98.4 79 18 137/74 (95) 97 Intake and Output 08/05/18 08/06/18 19:00 07:00 Intake Total 1235 ml 1180 ml Balance 1235 ml 1180 ml Intake Oral 480 ml 480 ml IV Total 755 ml 700 ml # Voids 3 # Bowel Movements 1 Laboratory Tests 08/06/18 07:29: White Blood Count 5.8, Red Blood Count 2.51L, Hemoglobin 8.2L, Hematocrit 22.8L , Mean Corpuscular Volume 91, Mean Corpuscular Hemoglobin 32.5H, Mean Corpuscular Hemoglobin Concent 35.7, Red Cell Distribution Width 12.0, Platelet Count 145L, Mean Platelet Volume 7.5, Neutrophils (%) (Auto) 60.9, Lymphocytes ( %) (Auto) 26.9, Monocytes (%) (Auto) 10.7H, Eosinophils (%) (Auto) 0.9, Basophils (%) (Auto) 0.6, Sodium Level 145, Potassium Level 3.1L, Chloride Level 111H, Carbon Dioxide Level 22, Anion Gap 12, Blood Urea Nitrogen 8, Creatinine 0.9, Estimat Glomerular Filtration Rate > 60, Glucose Level 88#, Calcium Level 6.5L, Total Bilirubin 0.2, Aspartate Amino Transf (AST/SGOT) 28, Alanine Aminotransferase (ALT/SGPT) 30, Alkaline Phosphatase 30L, Total Protein 6.2L, Albumin 2.5L, Globulin 3.7, Albumin/Globulin Ratio 0.7L Height (Feet): 5 Height (Inches): 2.00 Weight (Pounds): 175 Objective General: alert, cooperative, no distress, appears stated age Head: normocephalic, without obvious abnormality, atraumatic Eyes: conjunctivae/corneas clear. PERRL, EOM's intact Throat: lips, mucosa, and tongue normal. MMM Neck: supple, symmetrical, trachea midline, and no JVD Lungs: clear to auscultation bilaterally Heart: regular rate and rhythm, S1, S2 normal, no murmur, click, rub or gallop Abdomen: soft, non-tender, non-distended, bowel sounds normal; no masses or organomegaly Extremities: extremities normal, atraumatic, no cyanosis or edema Pulses: 2+ and symmetric Skin: skin color, texture, turgor normal; no rashes or lesions Neurologic: grossly normal, no focal deficits Marya Ralph MD Aug 06, 2018 14:51
[2018-08-06 16:00] VITALS: BP 130/79
--- NOTE | 2018-08-06 18:10 | NUR ---
CASE MANAGEMENT: REVIEW 08/06/2018 SI:SEPSIS. TUBULO- INTERSTITIAL NEPHRITIS. T: 99.5 HR 79 RR 20 B/P 125/80 SATS 96% ON RA K 3.1 CL 111 CA 6.5 ALP 30 IS: IVF @ 100 mL/HR COLACE PO Q12H CELLCEPT PO Q12H CEFTRIAXONE IV QD LOVENOX SUBQ QD LOTENSIN PO QD PREDNISONE PO QD COREG PO Q12H MED/SURG STATUS PLAN OF CARE: IV HYDRATION IV ANTIBX HOME WHEN AFEBRILE
--- NOTE | 2018-08-06 19:22 | NUR ---
HAND-OFF: Report given to BERT Botello.
[2018-08-06 20:00] VITALS: BP_SYST 149; BP_SYST 150; BP_DIAS 93; BP_DIAS 96
--- NOTE | 2018-08-06 21:00 | NUR ---
NURSE NOTES: Patient in bed, awake, alert and verbally responsive. Wolof speaking, able to understand Persian and respond. IV site noted on the right upper arm. Skin is warm and dry to touch. Abdomen is soft and non distended. Noted with left upper arm shunt. No complaint of pain or discomfort. Respiration is even and unlabored. Call light is at bedside. Bed in low and locked position. Provided safe environment. Will continue plan of care.
[2018-08-06] MEDS: Zolpidem 5mg tab ORAL PRN (21:18)
[2018-08-07] VITALS: BP 154/90
[2018-08-07 04:00] VITALS: BP 150/92
--- NOTE | 2018-08-07 07:26 | NUR ---
HAND-OFF: Report given to BERT Santiago.
--- NOTE | 2018-08-07 07:50 | NUR ---
NURSE NOTES: Received report from BERT Botello. Pt in bed, awake, fatigued, talkative, no complaints of pain, no apparent distress noted, bed in lowest position, call light within reach.
[2018-08-07 08:00] VITALS: BP 144/89
[2018-08-07] MEDS ORDERED: Prep H Ointment 57gm RECTAL PRN (09:00)
[2018-08-07] MEDS: Enoxaparin 40mg Inj SUBQ SCH (09:00)
[2018-08-07] MEDS: Mycophenolate 250mg cap ORAL SCH ×2 (09:03→21:12)
[2018-08-07] MEDS: Carvedilol 25mg Tab ORAL SCH ×2 (09:04→21:13)
[2018-08-07] MEDS: cefTRIAXone 1gm/D5W 55ml IVPB SCH ×2 (09:04)
[2018-08-07] MEDS: Docusate 100mg cap ORAL SCH ×3 (09:04→17:32)
--- NOTE | 2018-08-07 09:24 | NUR ---
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 HYPERTENSION VS: BP 154/90, P 79, T 99.5, RR 19, SpO2 97 IS:CEFTRIAXONE 55ml IVPB COREG 25mg PREDNISONE 3mG PROGRAF 0.5mg LOTENSIN 40mg CELLCEPT 500mg MED/SURG STATUS
[2018-08-07 11:51] VITALS: BP 128/78
--- NOTE | 2018-08-07 13:17 | Infectious Diseases Prog Note ---
Assessment/Plan Assessment/Plan A) 1) e.coli uti/pyelonephritis, sepsis, fevers, leukocytosis 2) renal transplant patient 3) hx esrd and transplant, htn, hhd, anemia, nephropathy 4) allergies - sulfa, morphine 5) fh-nc, sh-neg, mar noted 6) d/w RN P) 1) rocphin - day # 5 abx - - consider po abx soon if fevers continue to resolve - keflex 500 mg po qid for 7 days would be appropriate 2) monitor temperatures 3) monitor labs 4) ct noted 5) clinically improved Subjective Constitutional: Reports: fatigue; Denies: fever HEENT: Denies: congestion Respiratory: Denies: shortness of breath Cardiovascular: Denies: chest pain Gastrointestinal/Abdominal: Denies: nausea, vomiting, diarrhea Genitourinary: Reports: other - no don Neurologic: Denies: headache Psychiatric: Denies: depression Skin: Denies: rash Hematologic: Denies: bleeding Musculoskeletal: Denies: pain Allergies: Coded Allergies: MORPHINE (Unverified Allergy, Unknown, 03/22/14) SULFA (SULFONAMIDE ANTIBIOTICS) (Unverified Allergy, Unknown, 03/22/14) Uncoded Allergies: SULFA (Allergy, Unknown, 08/02/18) Objective Vital Signs Last 24 Hour Vital Signs Date Time Temp Pulse Resp B/P (MAP) Pulse Ox O2 Delivery O2 Flow Rate FiO2 08/07/18 11:51 98.8 68 16 128/78 (95) 95 08/07/18 09:04 82 144/89 08/07/18 09:03 144/89 08/07/18 09:00 Room Air 08/07/18 08:00 98.9 82 19 144/89 (107) 98 08/07/18 04:00 99.3 79 18 150/92 (111) 97 08/07/18 00:00 99.5 83 18 154/90 (111) 97 08/06/18 21:18 81 150/96 08/06/18 21:00 Room Air 08/06/18 20:00 99.3 81 19 150/96 (114) 98 08/06/18 16:00 98.9 82 19 130/79 (96) 97 08/06/18 14:00 98.5 Height (Feet): 5 Height (Inches): 2.00 Weight (Pounds): 175 General Appearance: no acute distress HEENT: normocephalic, atraumatic, anicteric, mucous membranes moist Respiratory/Chest: lungs clear, normal breath sounds, no respiratory distress, no accessory muscle use Cardiovascular: normal rate, regular rhythm, no gallop/murmur, no JVD Abdomen: normal bowel sounds, soft, non tender, no organomegaly, non distended Genitourinary: other - no don Extremities: no cyanosis Skin: no rash Neurologic/Psychiatric: 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 This appears minimally enlarged and there is suggestion of slight perinephric inflammation as well as periureteral inflammation. This could indicate ureteritis/nephritis. There is very questionable slight indistinctness of the bladder wall as well, could indicate cystitis in the appropriate clinical setting. Correlation with clinical laboratory findings is recommended 6.6 cm unilocular right ovarian cyst. Given the midline location of the cyst and ovary and prominence of the pedicle, the possibility of torsion should be considered. Correlation with clinical findings is recommended, consideration for ultrasound of the pelvis if clinically indicated Limited assessment of the GI tract, due to lack of enteric contrast administration. Atrophic table [place] kidneys Equivocal colonic diverticulosis. No evidence of diverticulitis Findings discussed by phone with Dr. Valdez in the emergency room at the time of interpretation Microbiology Date/Time Source Procedure Growth Status 08/02/18 14:55 Blood Blood Culture - Preliminary NO GROWTH AFTER 48 HOURS Resulted 08/02/18 07:58 Urine,Clean Catch Urine Culture - Final Escherichia Coli Complete Labs Test 08/05/18 13:15 08/05/18 13:30 08/06/18 07:29 Sodium Level 140 MMOL/L (136-145) 145 MMOL/L (136-145) Potassium Level 3.8 MMOL/L (3.5-5.1) 3.1 MMOL/L (3.5-5.1) Chloride Level 105 MMOL/L (98-107) 111 MMOL/L (98-107) Carbon Dioxide Level 22 MMOL/L (21-32) 22 MMOL/L (21-32) Anion Gap 13 mmol/L (5-15) 12 mmol/L (5-15) Blood Urea Nitrogen 8 mg/dL (7-18) 8 mg/dL (7-18) Creatinine 1.0 MG/DL (0.55-1.30) 0.9 MG/DL (0.55-1.30) Estimat Glomerular Filtration Rate > 60 mL/min (>60) > 60 mL/min (>60) Glucose Level 187 MG/DL (74-106) 88 MG/DL (74-106) Calcium Level 7.7 MG/DL (8.5-10.1) 6.5 MG/DL (8.5-10.1) Total Bilirubin 0.1 MG/DL (0.2-1.0) 0.2 MG/DL (0.2-1.0) Aspartate Amino Transf (AST/SGOT) 23 U/L (15-37) 28 U/L (15-37) Alanine Aminotransferase (ALT/SGPT) 23 U/L (12-78) 30 U/L (12-78) Alkaline Phosphatase 38 U/L (46-116) 30 U/L (46-116) Total Protein 7.1 G/DL (6.4-8.2) 6.2 G/DL (6.4-8.2) Albumin 3.1 G/DL (3.4-5.0) 2.5 G/DL (3.4-5.0) Globulin 4.0 g/dL 3.7 g/dL Albumin/Globulin Ratio 0.8 (1.0-2.7) 0.7 (1.0-2.7) White Blood Count 6.4 K/UL (4.8-10.8) 5.8 K/UL (4.8-10.8) Red Blood Count 3.14 M/UL (4.20-5.40) 2.51 M/UL (4.20-5.40) Hemoglobin 9.6 G/DL (12.0-16.0) 8.2 G/DL (12.0-16.0) Hematocrit 28.5 % (37.0-47.0) 22.8 % (37.0-47.0) Mean Corpuscular Volume 91 FL (80-99) 91 FL (80-99) Mean Corpuscular Hemoglobin 30.5 PG (27.0-31.0) 32.5 PG (27.0-31.0) Mean Corpuscular Hemoglobin Concent 33.6 G/DL (32.0-36.0) 35.7 G/DL (32.0-36.0) Red Cell Distribution Width 11.8 % (11.6-14.8) 12.0 % (11.6-14.8) Platelet Count 160 K/UL (150-450) 145 K/UL (150-450) Mean Platelet Volume 7.5 FL (6.5-10.1) 7.5 FL (6.5-10.1) Neutrophils (%) (Auto) 77.0 % (45.0-75.0) 60.9 % (45.0-75.0) Lymphocytes (%) (Auto) 14.2 % (20.0-45.0) 26.9 % (20.0-45.0) Monocytes (%) (Auto) 8.5 % (1.0-10.0) 10.7 % (1.0-10.0) Eosinophils (%) (Auto) 0.1 % (0.0-3.0) 0.9 % (0.0-3.0) Basophils (%) (Auto) 0.2 % (0.0-2.0) 0.6 % (0.0-2.0) Current Medications Medications (Trade) Dose Ordered Sig/Aroldo Route PRN Reason Start Time Stop Time Status Last Admin Dose Admin Acetaminophen (Tylenol) 650 mg Q6H PRN ORAL Mild Pain/Temp > 100.5 08/02/18 14:30 09/01/18 14:29 08/06/18 08:49 Benazepril HCl (Lotensin) 40 mg DAILY ORAL 08/04/18 09:00 09/03/18 08:59 08/07/18 09:03 Carvedilol (Coreg) 25 mg Q12HR ORAL 08/03/18 21:00 09/02/18 20:59 08/07/18 09:04 Ceftriaxone Sodium 1 gm/ Dextrose 55 ml @ 110 mls/hr DAILY IVPB 08/03/18 09:00 08/10/18 08:59 08/07/18 09:04 Dextrose (Dextrose 50%) 25 ml Q30M PRN IV Hypoglycemia 08/02/18 11:30 09/01/18 11:29 Dextrose (Dextrose 50%) 50 ml Q30M PRN IV Hypoglycemia 08/02/18 11:30 09/01/18 11:29 Diphenhydramine HCl (Benadryl) 25 mg Q6H PRN ORAL Itching/Pruritis 08/02/18 11:30 09/01/18 11:29 Docusate Sodium (Colace) 100 mg THREE TIMES A DAY ORAL 08/06/18 18:00 09/05/18 17:59 08/07/18 12:51 Enoxaparin Sodium (Lovenox) 40 mg DAILY SUBQ 08/03/18 09:00 09/02/18 08:59 08/05/18 08:56 Lorazepam (Ativan) 1 mg Q4H PRN ORAL For Anxiety 08/02/18 11:30 08/09/18 11:29 08/06/18 02:34 Mycophenolate Mofetil (Cellcept) 500 mg EVERY 12 HOURS ORAL 08/03/18 21:00 09/02/18 20:59 08/07/18 09:03 Ondansetron HCl (Zofran) 4 mg Q6H PRN IVP Nausea & Vomiting 08/02/18 11:30 09/01/18 11:29 08/05/18 04:36 Phenyleph/Shark Oil/Glycerin/ Petrol (Preparation H) 1 applic TIDPRN PRN RECTAL Hemorroidal Pain 08/07/18 09:00 09/06/18 08:59 Prednisone (predniSONE) 3 mg DAILY ORAL 08/03/18 21:00 09/02/18 20:59 08/07/18 09:04 Tacrolimus (Prograf) 0.5 mg DAILY ORAL 08/03/18 21:00 09/02/18 20:59 08/07/18 09:04 Tramadol HCl (Ultram) 50 mg Q6H PRN ORAL headache 08/05/18 13:00 08/12/18 12:59 Zolpidem Tartrate (Ambien) 5 mg HSPRN PRN ORAL Insomnia 08/06/18 12:15 08/13/18 12:14 08/06/18 21:18 Chuck Azevedo MD Aug 07, 2018 13:17
--- NOTE | 2018-08-07 13:29 | Consultation ---
Consult Note Consult Note Hematology/ Oncology Consultation Date of Consultation: 08/07/2018 Breonna PASTRANA: Dr. 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 She follows with the nephrology clinic at [facility] and is on post renal transplant suppressive therapy, She has history of Ovarian Right cysyt is being followed at the [facility] clinic as well with Pelvic US every 6 months. She states no cancer was detected, she has family history of breast cancer and leukemia. Pt presented to [facility] with a temperature of 102 F at home and in the ED was found to have a UTI, CT scan was done of Abd and Pelvis which demonstrated a 6.6 cm unilocular R ovarian cyst. She also has history of irregular menses and anemia. Heme/Onc was consulted for anemia evaluation. Past Medical History: [place], Hep C, CKD, on HD Past Surgical History: Left Ovary removal, Right kidney transplant in 2004, left UE old graft, Parathyroid surgery Family History: Eldest Sister Leukemia (alove dxnosed 20yrs ago), Paternal Aunt Breast Ca ( alive dxnosed 10 yrs ago). Social History: Denies tobacco use, etoh use and no illicit or recreational drug use. Allergies: MORPHINE, SULFA Medication History Scheduled Benazepril Hcl* (Benazepril Hcl*), 10 MG ORAL DAILY, (Reported) Calcitriol (Calcitriol), 0.25 MCG PO TWICE A DAY, (Reported) Calcium Carbonate/Vitamin D3 ([place] 500+D Tablet), 1 EACH PO THREE TIMES A DAY, (Reported) Carvedilol (Coreg), 25 MG ORAL BID, (Reported) Cephalexin (Cephalexin), 500 MG ORAL FOUR TIMES A DAY Magnesium Oxide (Magnesium Oxide), 400 MG ORAL THREE TIMES A DAY, (Reported) Mycophenolate Mofetil (Cellcept), 500 MG ORAL EVERY 12 HOURS, (Reported) Mycophenolate Mofetil (Mycophenolate Mofetil), 500 MG PO TWICE A DAY, (Reported) Nitrofurantoin Monohyd/M-Cryst (Nitrofurantoin [place]-Mcr 100 mg), 100 MG ORAL Q12H Prednisone (Prednisone), 3 MG PO DAILY, (Reported) Tacrolimus (Prograf), 0.5 MG PO BID, (Reported) Scheduled PRN Acetaminophen* (Tylenol Extra Strength*), 500 MG ORAL Q6H PRN for Mild Pain/ Temp > 100.5, (Reported) Zolpidem Tartrate* (Ambien*), 10 MG ORAL BEDTIME PRN for Insomnia, (Reported) Review of Systems Genitourinary: +dysuria, frequency, Recatal: + hemmrhoids and anal pain 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 Family History of Cancer strong family history Cancer --> recommend screened MRI along with Mammograms and outpatient work-up #. Anemia of chronic disease (or of iron deficiency) due to underlying chronic kidney disease chronic medical issues, multifactorial --> Anemia workup has been ordered, also with ckd s/p, Kidney transplant and irregular menstrual period with active bleeding --> No evidence of hemolysis is noted, peripheral smear has been reviewed. --> Hgb goal >7. Transfuse prn. --> Epogen or iron at this time is not particularly indicated --> Medications have been reviewed #. S/p Renal transplantation since 2004 --> Continue Prograft, cellcept, prednisone, spironolactone therapy. --Consider nephrology consult if needed. Patient has been stable in her outpatient regimen. #. Pyelonephritis -->Continue IVF hydration --> On Ceftriaxone IV pending cultures, ID following appreciate rec's. #. Hypertension --> on BB and ACEI -->Monitor BP #. History of R PCO --> following. outpatient COMPUTING SERVICES DIRECTOR clinic at [facility] US pelvis q 6months --> CT Abd and Pelvis here reviewed 6.6 cm unilocular R ovarian Cyst #. Hemorrhoids -->painful, can begin low dose hydrocortisone topical cream for relief #. Hypocalcemia --> Ca 9.2--> 8.4--> 8.4--> 7.7--> 6.5 The timing of this note does not necessarily reflect the time of the patient was seen. GREATLY APPRECIATE CONSULTATION. Christina Mcpherson NP Aug 07, 2018 13:29
[2018-08-07 14:13] LABS: % IRON SATURATION 17 % (15-50); IRON 42 ug/dL (50-175); TOTAL IRON BINDING CAPACITY 241 ug/dL (250-450)
[2018-08-07] MEDS ORDERED: Tubing IV Secondary IV ONE (14:14)
[2018-08-07 14:26] LABS: FERRITIN 157 NG/ML (8-388)
[2018-08-07 16:00] VITALS: BP 139/81
--- NOTE | 2018-08-07 18:15 | Consultation ---
DATE OF CONSULTATION: 08/05/2018 INFECTIOUS DISEASE CONSULTATION CONSULTING PHYSICIAN: Chuck Azevedo M.D. ATTENDING PHYSICIAN: Marya Ralph M.D. REFERRING PHYSICIAN: Marya Ralph M.D. REASON FOR CONSULTATION: E. coli UTI, pyelonephritis, sepsis, fevers, leukocytosis. CHIEF COMPLAINT: The patient's chief complaint coming to the hospital is fevers and UTI with pyelonephritis. HISTORY OF PRESENT ILLNESS: This is a very pleasant 47-year-old female with history of renal transplant, history of end-stage renal disease. The patient presented with fevers of 102 I think from home here at [facility]. She presented with a temperature as high as 102.9. Workup showed that she had a positive urinalysis and likely UTI with pyelonephritis. CT scan of the abdomen and pelvis was consistent with a perinephric inflammation and periureteral inflammation. Infectious Disease consultation requested for antibiotic management for persistent fevers. Urine culture grew out E. coli. The patient currently is on Rocephin 1 g IV q.24 hours for E. coli UTI and pyelonephritis. MAR was noted. Orders noted. Notes were reviewed. REVIEW OF SYSTEMS: CONSTITUTIONAL: The patient came in with fever and chills. She had some abdominal and CVA discomfort. HEAD AND NECK: No head pain, neck pain. CARDIAC: No chest pain. GASTROINTESTINAL: No nausea, vomiting, or diarrhea. She has some abdominal discomfort as discussed. GENITOURINARY: She came in with plus or minus CVA and abdominal pain. PULMONARY: No congestion, shortness of breath, hemoptysis, or secretions. SKIN: No rash. MUSCULOSKELETAL: No extremity pain. NEUROLOGIC: No seizures. PAST MEDICAL HISTORY: The patient has a past history of renal transplant with history of end-stage renal disease, but now creatinine improved. Again renal transplant patient. History of being immunocompromised. History of hypertension, history of hypertensive heart disease, history of nephropathy, history of anemia. ALLERGIES: Sulfa and morphine. SOCIAL HISTORY: Negative for smoking, alcohol, or drug abuse. FAMILY HISTORY: Noncontributory. MEDICATIONS: Upon the MAR, she is on following medications. She is on Rocephin, docusate. She is on zolpidem. She is on tramadol. She is on benazepril. She is on carvedilol. She is on prednisone. She is on Prograf. She is on Rocephin. She is on enoxaparin. She is on acetaminophen, diphenhydramine, lorazepam. Outside medications noted and reconciliated. PHYSICAL EXAMINATION: VITAL SIGNS: On admission, temperature 102.9, when I saw the patient, her T-max was 102.6 on 08/03/2018. When I saw the patient, her T-max was 101.6, currently most recent temperature 101.3, 99.5, pulse rate 82, respiratory rate 20, blood pressure 136/70, saturation 97%, and again T-max on admission 102.9 and most recently 101.6. GENERAL: Alert, responsive. No acute distress. Oriented x3. HEAD AND NECK: Oral exam, no thrush. Eye exam, no icterus. Neck is supple. No JVD. Normocephalic. HEART: Regular. No gallop or murmur. ABDOMEN: Soft. Positive bowel sounds. Nontender. LUNGS: Clear bilaterally. No rhonchi or rales. SKIN: No rash. MUSCULOSKELETAL: No effusion. Legs are without cellulitis. PERIPHERAL VASCULAR: No cyanosis. GENITOURINARY: No Johnson. LINE SITES: Without phlebitis. NEUROLOGIC: Intact. Nonfocal. LABORATORY DATA: UA had 3+ leukocyte esterase, 30 to 40 white blood cells. Creatinine 1.0. White count 6.4, hemoglobin 9.6. Cultures, urine culture had E. coli sensitive to cephalosporins including Keflex and Rocephin or cefazolin and Rocephin. IMAGING STUDIES: CT scan of the abdomen and pelvis showed the following. It showed periureteral inflammation and perinephric inflammation. There was no abscess mentioned. ASSESSMENT AND PLAN: 1. The patient has E. coli UTI and pyelonephritis with fever, sepsis, leukocytosis. This is day #3 of Rocephin. Continue Rocephin for E coli UTI, pyelonephritis, and complicated UTI. Monitor for sepsis, fevers, and leukocytosis. Continue Rocephin for now day #3. If the patient starts to defervesce, consider oral antibiotics such as Keflex. 2. Renal transplant. 3. End-stage renal disease, now creatinine is normal. 4. Hypertension. 5. Hypertensive heart disease. 6. Anemia. 7. Nephropathy. 8. Allergies to sulfa, morphine. 9. Social history negative. 10. Family history noncontributory. 11. MAR was noted. 12. Case discussed with RN. 13. Continue treatment per primary consultants. Chuck Azevedo M.D. DR: CLARITA JOB#: [id number] CC:
--- NOTE | 2018-08-07 19:32 | NUR ---
NURSE NOTES: Received patient from BERT Santiago. Patient laying on the bed, self-positioned. Patient is breathing unlabored and evenly without signs of distress, discomfort, or SOB. No pain is noted at the time of hand-off. Patient's bed is placed at the lowest with alarms and brakes on for safety. Call light is placed within reach for any assistance needed. No complaints noted at this time. Will continue to monitor.
[2018-08-07 20:00] VITALS: BP 146/84
--- NOTE | 2018-08-07 21:11 | General Progress Note ---
Assessment/Plan Status: doing well, stable Assessment/Plan: 47 y/o F with prior ESRD on HD for 5 years and now s/p Renal transplantation since 2004 admitted with: # Sepsis due to Pyelonephritis - improved - Continue IVF hydration - Cont Ceftriaxone, growing sensitive E.Coli, WBC improved - ID consulted appreciated # s/p Renal transplant since 2004 - Continue Prograft, cellcept, prednisone, spironolactone therapy. - Consider nephrology consult if needed. Patient has been stable in her outpatient regimen. # Hypertension - Continue Carvedilol, benazepril - Monitor BP # History of R PCO - Stable # Disposition DC home when consistently afebrile on PO abx, likely tomorrow. DVT ppx ambulatory Full code Subjective Date patient seen: Aug 07, 2018 Time patient seen: 10:00 Allergies: Coded Allergies: MORPHINE (Unverified Allergy, Unknown, 03/22/14) SULFA (SULFONAMIDE ANTIBIOTICS) (Unverified Allergy, Unknown, 03/22/14) Uncoded Allergies: SULFA (Allergy, Unknown, 08/02/18) All Systems: reviewed and negative except above Subjective No acute overnight evetns, Afebrile, pt has no complaints, states she fells better, has no complaints. Objective Last 24 Hour Vital Signs Date Time Temp Pulse Resp B/P (MAP) Pulse Ox O2 Delivery O2 Flow Rate FiO2 08/07/18 20:00 98.2 69 18 146/84 (104) 98 08/07/18 16:00 98.7 86 20 139/81 (100) 98 08/07/18 11:51 98.8 68 16 128/78 (95) 95 08/07/18 09:04 82 144/89 08/07/18 09:03 144/89 08/07/18 09:00 Room Air 08/07/18 08:00 98.9 82 19 144/89 (107) 98 08/07/18 04:00 99.3 79 18 150/92 (111) 97 08/07/18 00:00 99.5 83 18 154/90 (111) 97 08/06/18 21:18 81 150/96 Intake and Output 08/06/18 08/07/18 19:00 07:00 Intake Total 2255 ml 1000 ml Output Total 6 ml Balance 2255 ml 994 ml Intake Oral 1000 ml 1000 ml IV Total 1255 ml Output Urine Total 6 ml # Voids 4 3 # Bowel Movements 1 1 Laboratory Tests 08/07/18 01:46: Iron Level 42L, Total Iron Binding Capacity 241L, Percent Iron Saturation 17, Unsaturated Iron Binding 199, Ferritin 157 Height (Feet): 5 Height (Inches): 2.00 Weight (Pounds): 175 Objective General: alert, cooperative, no distress, appears stated age Head: normocephalic, without obvious abnormality, atraumatic Eyes: conjunctivae/corneas clear. PERRL, EOM's intact Throat: lips, mucosa, and tongue normal. MMM Neck: supple, symmetrical, trachea midline, and no JVD Lungs: clear to auscultation bilaterally Heart: regular rate and rhythm, S1, S2 normal, no murmur, click, rub or gallop Abdomen: soft, non-tender, non-distended, bowel sounds normal; no masses or organomegaly Extremities: extremities normal, atraumatic, no cyanosis or edema Pulses: 2+ and symmetric Skin: skin color, texture, turgor normal; no rashes or lesions Neurologic: grossly normal, no focal deficits Fatou Chamberlain MD Aug 07, 2018 21:11
[2018-08-07] MEDS: Zolpidem 5mg tab ORAL PRN (21:52)
[2018-08-08] VITALS: BP 143/97
--- NOTE | 2018-08-08 00:52 | NUR ---
NURSE NOTES: Patient currently sleeping on the bed, self-positioned. Patient breathing evenly and unlabored without signs of distress or discomfort. No pain noted at this time. All medication given as ordered and all call light answered promptly. Call light kept within the reach for any assistance needed. Will continue to monitor.
[2018-08-08 04:00] VITALS: BP 140/89
--- NOTE | 2018-08-08 06:56 | NUR ---
HAND-OFF: Report given to BERT Santiago. Patient in stable condition.
--- NOTE | 2018-08-08 07:45 | NUR ---
NURSE NOTES: Received report from BERT Rangel and BERT Botello. Pt in bed, asleep, respiration regular and unlabored, bed in lowest position, call light within reach
[2018-08-08 08:00] VITALS: BP 140/86
[2018-08-08] MEDS: Enoxaparin 40mg Inj SUBQ SCH (09:00)
[2018-08-08] MEDS: Carvedilol 25mg Tab ORAL SCH (09:16)
[2018-08-08] MEDS: cefTRIAXone 1gm/D5W 55ml IVPB SCH ×2 (09:16)
[2018-08-08] MEDS: Docusate 100mg cap ORAL SCH ×2 (09:17→13:01)
[2018-08-08] MEDS: Mycophenolate 250mg cap ORAL SCH (09:17)
[2018-08-08 10:35] LABS: BASOPHILS % (AUTO) 0.6 % (0.0-2.0); EOSINOPHILS % (AUTO) 2.1 % (0.0-3.0); HEMATOCRIT 32.1 % (37.0-47.0); LYMPHOCYTES % (AUTO) 21.7 % (20.0-45.0); MEAN CORPUSCULAR VOLUME 90 FL (80-99); MONOCYTES % (AUTO) 8.9 % (1.0-10.0); NEUTROPHILS % (AUTO) 66.8 % (45.0-75.0); PLATELET COUNT 289 K/UL (150-450); RED BLOOD COUNT 3.56 M/UL (4.20-5.40); RED CELL DISTRIBUTION WIDTH 11.3 % (11.6-14.8)
[2018-08-08 10:58] LABS: ANION GAP 12 mmol/L (5-15); BLOOD UREA NITROGEN 18 mg/dL (7-18); CARBON DIOXIDE 24 MMOL/L (21-32); CHLORIDE 105 MMOL/L (98-107); POTASSIUM 3.9 MMOL/L (3.5-5.1); SODIUM 141 MMOL/L (136-145)
--- NOTE | 2018-08-08 11:37 | NUR ---
NURSE NOTES: Notified Dr. Chamberlain regarding K 3.9, Cr 1.0, BUN 18 per her request Rx for Abx in chart
[2018-08-08 12:00] VITALS: BP 135/79
[2018-08-08] MEDS ORDERED: CEPHALEXIN500 MG ORAL (12:59)
--- NOTE | 2018-08-08 13:30 | NUR ---
NURSE NOTES: Pt discharged home with all belongings and home medications, receipt #[id number], pt has written Rx Keflex in hand, all dc paperwork signed by pt, pt ambulatory, IV removed intact, Id band removed, pt stable for discharge home via taxi
--- NOTE | 2018-08-08 18:32 | Hematology/Onc Progress Note ---
Assessment/Plan Assessment/Plan Assessment/Plan ASSESSMENT AND REC'S #. Family History of Cancer strong family history Cancer --> recommend screened MRI along with Mammograms and outpatient work-up #. Anemia of chronic disease (or of iron deficiency) due to underlying chronic kidney disease chronic medical issues, multifactorial --> Anemia workup has been ordered, also with ckd s/p, Kidney transplant and irregular menstrual period with active bleeding --> No evidence of hemolysis is noted, peripheral smear has been reviewed. --> Hgb goal >7. Transfuse prn. --> Epogen or iron at this time is not particularly indicated --> Medications have been reviewed #. S/p Renal transplantation since 2004 --> Continue Prograft, cellcept, prednisone, spironolactone therapy. --Consider nephrology consult if needed. Patient has been stable in her outpatient regimen. #. Pyelonephritis -->Continue IVF hydration --> On Ceftriaxone IV pending cultures, ID following appreciate rec's. #. Hypertension --> on BB and ACEI -->Monitor BP #. History of R PCO --> following. outpatient PREPRESS TECHNICIAN clinic at [facility] US pelvis q 6months --> CT Abd and Pelvis here reviewed 6.6 cm unilocular R ovarian Cyst #. Hemorrhoids -->painful, can begin low dose hydrocortisone topical cream for relief #. Hypocalcemia --> Ca 9.2--> 8.4--> 8.4--> 7.7--> 6.5 The timing of this note does not necessarily reflect the time of the patient was seen. GREATLY APPRECIATE CONSULTATION Subjective Allergies: Coded Allergies: MORPHINE (Unverified Allergy, Unknown, 03/22/14) SULFA (SULFONAMIDE ANTIBIOTICS) (Unverified Allergy, Unknown, 03/22/14) Uncoded Allergies: SULFA (Allergy, Unknown, 08/02/18) Subjective 08/08: Pt stable. DC planning. Objective Objective Last 24 Hour Vital Signs Date Time Temp Pulse Resp B/P (MAP) Pulse Ox O2 Delivery O2 Flow Rate FiO2 08/08/18 12:00 98.9 80 16 135/79 (97) 95 08/08/18 09:17 140/89 08/08/18 09:16 73 140/89 08/08/18 09:00 Room Air 08/08/18 08:00 98.4 70 16 140/86 (104) 95 08/08/18 04:00 98.0 73 20 140/89 (106) 98 08/08/18 00:00 98.2 72 18 143/97 (112) 98 08/07/18 21:13 69 146/84 08/07/18 21:00 Room Air 08/07/18 20:00 98.2 69 18 146/84 (104) 98 08/07/18 16:00 98.7 86 20 139/81 (100) 98 08/07/18 11:51 98.8 68 16 128/78 (95) 95 08/07/18 09:04 82 144/89 08/07/18 09:03 144/89 08/07/18 09:00 Room Air 08/07/18 08:00 98.9 82 19 144/89 (107) 98 08/07/18 04:00 99.3 79 18 150/92 (111) 97 08/07/18 00:00 99.5 83 18 154/90 (111) 97 08/06/18 21:18 81 150/96 08/06/18 21:00 Room Air 08/06/18 20:00 99.3 81 19 150/96 (114) 98 Intake and Output 08/07/18 08/08/18 19:00 07:00 Intake Total 915 ml 360 ml Balance 915 ml 360 ml Intake Oral 860 ml 360 ml IV Total 55 ml # Voids 6 1 # Bowel Movements 1 Labs Test 08/06/18 07:29 08/07/18 01:46 08/08/18 10:26 White Blood Count 5.8 K/UL (4.8-10.8) 10.0 K/UL (4.8-10.8) Red Blood Count 2.51 M/UL (4.20-5.40) 3.56 M/UL (4.20-5.40) Hemoglobin 8.2 G/DL (12.0-16.0) 11.0 G/DL (12.0-16.0) Hematocrit 22.8 % (37.0-47.0) 32.1 % (37.0-47.0) Mean Corpuscular Volume 91 FL (80-99) 90 FL (80-99) Mean Corpuscular Hemoglobin 32.5 PG (27.0-31.0) 30.8 PG (27.0-31.0) Mean Corpuscular Hemoglobin Concent 35.7 G/DL (32.0-36.0) 34.2 G/DL (32.0-36.0) Red Cell Distribution Width 12.0 % (11.6-14.8) 11.3 % (11.6-14.8) Platelet Count 145 K/UL (150-450) 289 K/UL (150-450) Mean Platelet Volume 7.5 FL (6.5-10.1) 6.2 FL (6.5-10.1) Neutrophils (%) (Auto) 60.9 % (45.0-75.0) 66.8 % (45.0-75.0) Lymphocytes (%) (Auto) 26.9 % (20.0-45.0) 21.7 % (20.0-45.0) Monocytes (%) (Auto) 10.7 % (1.0-10.0) 8.9 % (1.0-10.0) Eosinophils (%) (Auto) 0.9 % (0.0-3.0) 2.1 % (0.0-3.0) Basophils (%) (Auto) 0.6 % (0.0-2.0) 0.6 % (0.0-2.0) Sodium Level 145 MMOL/L (136-145) 141 MMOL/L (136-145) Potassium Level 3.1 MMOL/L (3.5-5.1) 3.9 MMOL/L (3.5-5.1) Chloride Level 111 MMOL/L (98-107) 105 MMOL/L (98-107) Carbon Dioxide Level 22 MMOL/L (21-32) 24 MMOL/L (21-32) Anion Gap 12 mmol/L (5-15) 12 mmol/L (5-15) Blood Urea Nitrogen 8 mg/dL (7-18) 18 mg/dL (7-18) Creatinine 0.9 MG/DL (0.55-1.30) 1.0 MG/DL (0.55-1.30) Estimat Glomerular Filtration Rate > 60 mL/min (>60) > 60 mL/min (>60) Glucose Level 88 MG/DL (74-106) 128 MG/DL (74-106) Calcium Level 6.5 MG/DL (8.5-10.1) 8.0 MG/DL (8.5-10.1) Total Bilirubin 0.2 MG/DL (0.2-1.0) Aspartate Amino Transf (AST/SGOT) 28 U/L (15-37) Alanine Aminotransferase (ALT/SGPT) 30 U/L (12-78) Alkaline Phosphatase 30 U/L (46-116) Total Protein 6.2 G/DL (6.4-8.2) Albumin 2.5 G/DL (3.4-5.0) Globulin 3.7 g/dL Albumin/Globulin Ratio 0.7 (1.0-2.7) Iron Level 42 ug/dL (50-175) Total Iron Binding Capacity 241 ug/dL (250-450) Percent Iron Saturation 17 % (15-50) Unsaturated Iron Binding 199 ug/dL (112-346) Ferritin 157 NG/ML (8-388) Height (Feet): 5 Height (Inches): 2.00 Weight (Pounds): 175 Objective Physical Exam General Appearance: WD/WN Lines, tubes and drains: peripheral HEENT: normocephalic, atraumatic Neck: non-tender Respiratory/Chest: chest wall non-tender, lungs clear Cardiovascular/Chest: normal peripheral pulses, normal rate Abdomen: normal bowel sounds, non tender, + distended + BS Skin Exam: normal pigmentation 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
--- NOTE | 2018-08-10 17:40 | Discharge Summary ---
Discharge Summary Hospital Course Date of Admission Aug 02, 2018 at 10:48 Date of Discharge Aug 08, 2018 at 13:33 Admitting Diagnosis pyelonephritis, complex HPI Jillian Brown is a 47 year old female who was admitted on Aug 02, 2018 at 10: 48 for Pyelonephritis,Complex 47 y F with history of ESRD due to hypertensive nephropathy and emergency, s/p HD for 5 years and finally renal transplantation at [facility] on 09/12/04. She [place] [facility] and is in appropriate post renal transplant suppressive therapy with Prograft and Cellcept. She had a prior hospitalization 3 years ago at [facility] due to Pyelonephritis and today presented to the ED with complaints of lower abdominal pain bilateral suprapubic some radiation to the right flank area, increased vomiting this morning and Low-grade fever. The patient had a temperature of 102 F at home and in the ED was found to have a UTI, CT scan concerning for perirenal stranding. Admission is requested. IVF and Ceftriaxone IV was started. Normal Lactate and no hemodynamic compromise. Blood cultures were not done in ED and added on admission orders. Hospital Course 47 y/o F with prior ESRD on HD for 5 years and now s/p Renal transplantation since 2004 admitted with: # Sepsis due to Pyelonephritis - improved - Treated with Ceftriaxone, growing sensitive E.Coli, WBC improved - ID consulted appreciated -On discharge will cont Keflex 500mg QID x 7 days # s/p Renal transplant since 2004 - Continue Prograft, cellcept, prednisone, spironolactone therapy. # Hypertension - Continue Carvedilol, benazepril # History of R PCO - Stable Discharge Medications Continued Medications: Acetaminophen* (Tylenol Extra Strength*) 500 Mg Tablet 500 MG ORAL Q6H PRN for Mild Pain/Temp > 100.5, TAB 0 Refills Benazepril Hcl* (Benazepril Hcl*) 10 Mg Tablet 10 MG ORAL DAILY, TAB (This prescription has been renewed) Calcitriol (Calcitriol) 0.25 Mcg Capsule 0.25 MCG PO TWICE A DAY, CAP Calcium Carbonate/Vitamin D3 ([place] 500+D Tablet) 1 Each Tablet 1 EACH PO THREE TIMES A DAY, TAB Carvedilol (Coreg) 25 Mg Tab 25 MG ORAL BID, TAB Magnesium Oxide (Magnesium Oxide) 400 Mg Tab 400 MG ORAL THREE TIMES A DAY, #30 TAB 0 Refills [magnesium sulfate] () Mycophenolate Mofetil (Cellcept) 250 Mg Cap 500 MG ORAL EVERY 12 HOURS, CAP Mycophenolate Mofetil (Mycophenolate Mofetil) 500 Mg Tablet 500 MG PO TWICE A DAY, TAB Nitrofurantoin Monohyd/M-Cryst (Nitrofurantoin Randolph-Mcr 100 mg) 100 Mg Cap 100 MG ORAL Q12H, #14 CAP Prednisone (Prednisone) 1 Mg Tab 3 MG PO DAILY, TAB Tacrolimus (Prograf) 0.5 Mg Capsule 0.5 MG PO BID, CAP Zolpidem Tartrate* (Ambien*) 10 Mg Tablet 10 MG ORAL BEDTIME PRN for Insomnia, TAB 0 Refills Discharge Condition Upon Discharge: stable Discharge Disposition Patient was discharged to home Discharge Diagnoses: (1) Hypokalemia (2) Pyelonephritis (3) UTI (lower urinary tract infection) (4) Fever Fatou Chamberlain MD Aug 10, 2018 17:40
== END 2018-08-08 13:33 | disposition home or self-care (01) | DRG 720 ==
LOC: EDBD 07:46 → EMR 08:10 → 4E 10:48 → EDBEDREQ 11:02
DX: A41.9 Sepsis, unspecified organism (principal); E83.51 Hypocalcemia; I11.9 Hypertensive heart disease without heart failure; N12 Tubulo-interstitial nephritis, not specified as acute or chronic; K64.9 Unspecified hemorrhoids; Z88.6 Allergy status to analgesic agent; Z88.2 Allergy status to sulfonamides; N39.0 Urinary tract infection, site not specified; B96.89 Other specified bacterial agents as the cause of diseases classified elsewhere; Z94.0 Kidney transplant status
CPT/HCPCS: 36415; 74176; 80048; 80053; 81003; 81025; 82728; 83540; 83550; 83690; 83735; 84443; 85007; 85025; 87040; 87086; 87181; 96361; 96365; 96375; 99285; J2405; J2765; J8499

== ENCOUNTER 2019-09-29 21:41 | Inpatient (IN) | payer MEDICAID ==
[~2019-09-29] VITALS: Ht 157.5 cm; Wt 75.5 kg
--- NOTE | 2019-09-29 21:40 | NUR ---
ED Nurse Note: RA 826 brought pt from home c/o 11/23 abdominal pain since yesterday after being seen at another hospital, denies N/V at this moment. PT is A&OX4, VSS, pt is crying and writhing in pain, saudi ar[place]ian speaking only, telecommunications network engineer present. Pt placed on home security professional
[~2019-09-29 21:41] MED LIST changes: +BENAZEPRIL HCL10 MG ORAL; +CEPHALEXIN500 MG ORAL
[2019-09-29 21:45] VITALS: BP 119/73
--- NOTE | 2019-09-29 22:10 | Emergency Room Report ---
History of Present Illness General Chief Complaint: Abdominal Pain Source: Patient Present Illness HPI 48F PMH R renal transplant ([place] 2004), HTN, anxiety, R ovarian cyst c/ o RLQ abd pain x 7 days but worse over the past 3 days. Radiates to R flank. Also associated with nausea, decreased appetite. Denies fevers, chills, vomiting, diarrhea, melena, hematochezia, hematuria, or other complaints. Last PO intake was today at 8pm. Last BM was this morning. LMP was this month but is irregular because she is on control (IUD) Pt has LUE AV fistula does not use AV fistula bc she still makes urine The patient's symptoms were gradual onset, severity was moderate, duration since 7 days, but worse over last 3 days, constant. Quality: aching Past medical history: Renal transplant, HTN, anxiety , R ovarian cyst Past surgical history: LUE AV fistula Smoking: Denies Alcohol use: Denies Drug use: Denies Review of systems: CONST: No fevers or chills, No night sweats PULMONARY: No productive cough, No shortness of breath CARDIAC: No chest pain, No palpitations GI: + vomiting, No diarrhea , No melena_or_BRBPR : + dysuria, No hematuria, No discharge NEURO: No new_focal_weakness_or_numbness, No confusion, No vision changes 14 point Review of Systems is otherwise negative except per HPI Physical Exam: GENERAL: Awake_alert_ nontoxic, no acute distress Spo2 98% on RA -normal EYES: Extraocular muscles are intact. Conjunctivae clear. Lids without swelling ENT: External nose and ear normal_in_appearance. Oropharynx clear. Head_ atraumatic, Moist_oral_mucosa NECK: No JVD. No meningismus. No thyromegaly. Supple. Trachea midline RESP: Normal respiratory effort. Symmetric rise. No stridor. Clear_to_ auscultation_No_rales_No_wheezes CARDIAC: Regular rate and regular rhythm on_auscultation No_significant pedal edema. ABDOMEN: Soft. Nondistended. Nontender_No_rebound_or_guarding. No CVA TTP MSK: Normal muscle tone, without rigidity. Extremities without asymmetric deformity or swelling. SKIN: Warm and dry. No visible cyanosis or pallor NEUROLOGIC: Alert, oriented x3. Motor_and_sensation_grossly_intact. No truncal ataxia. Gait_normal Psych: Normal mood and affect, normal judgment and insight - COORDINATION OF CARE Case was discussed with: Patient , Patient's Physician Any labs and imaging that were ordered were interpreted as part of the medical decision making: Medical Decision Making/Plan: Differential diagnosis includes kidney stone, UTI, appendicitis, diverticulitis , ovarian torsion, hemorrhagic ovarian cyst, PID (pelvic inflammatory disease), small bowel obstruction, volvulus, pancreatitis, among others. Patient is well appearing with stable vital signs. Abdominal exam is tender in the RLQ but is non peritoneal with no guarding or rebound. No CVA TTP. Labs show leukocytosis of 14 with UTI. Patient is noted to have MELI with creatinine 1.6, baseline creatinine is 1.0. test is negative. UA is consistent with pyelonephritis Pt has complicated infection given hx renal transplant on chronic immunosuppressants and steroids. Due to renal transplant, CT scan of the abdomen and pelvis was performed. It was negative for renal abscess, retained infected nephrolithiasis, or other acute surgical emergency. She did have an enlarging chronic indeterminate 10.3 cm right adnexal cystic structure for which pelvic ultrasound was also performed. US shows no evidence of ovarian torsion. test is negative, ruling out ectopic . The patients presentation is not consistent with hemorrhagic ovarian cyst, pain was not sudden onset, not associated with vomiting, and has been going on for 7 days (worse over past 3 days) ED intervention included rocephin which was sensitive on previous UCx. Tylenol and dilaudid was given for pain control. I spoke with Dr. Marie, and reviewed the patients presentation, workup, results, and treatment. They will admit the patient for further care and evaluation, and assume care of the patient at this time. Allergies: Coded Allergies: MORPHINE (Unverified Allergy, Unknown, 03/22/14) PNEUMOCOCCAL VACCINE (Unverified Allergy, Unknown, 09/29/19) SULFA (SULFONAMIDE ANTIBIOTICS) (Unverified Allergy, Unknown, 03/22/14) Uncoded Allergies: SULFA (Allergy, Unknown, 08/02/18) COVID-19 Screening Contact w/high risk pt: No Experienced COVID-19 symptoms?: No COVID-19 Testing performed PRODUCTION CELL LEADER: No Patient History Last Menstrual Period: 09/13/19 Now: No : 0 Para: 0 Nursing Documentation-PMH Hx Cardiac Problems: Yes Hx Hypertension: Yes Hx Cancer: No Hx Gastrointestinal Problems: Yes - Hepatitis C Hx Dialysis: No - KIDNEY TRANSPLANT Hx Neurological Problems: No Physical Exam Vital Signs Date Time Temp Pulse Resp B/P (MAP) Pulse Ox O2 Delivery O2 Flow Rate FiO2 09/29/19 21:34 97.5 85 16 119/73 (88) 99 Room Air Sp02 EP Interpretation: reviewed, normal Medical Decision Making Diagnostic Impression: Primary Impression: UTI (lower urinary tract infection) Additional Impressions: S/p cadaver renal transplant MELI (acute kidney injury) Hyponatremia Right adrenal mass Abdominal pain HTN (hypertension) Ovarian cyst, left Rhythm Strip Diag. Results Rhythm Strip Time: 00:09 EP Interpretation: yes Rate: 85 Rhythm: NSR, no PVC's, no ectopy CT/MRI/US Diagnostic Results CT/MRI/US Diagnostic Results : Impression CT Abdomen Pelvis WO Contrast EXAM: CT Abdomen and Pelvis Without Intravenous Contrast IMPRESSION: Enlarging indeterminate 10.3 cm right adnexal cystic structure can be further characterized with pelvic ultrasound, as clinically indicated. US Pelvic Transabdominal FINDINGS: Uterus/cervix: Heterogeneous uterus measures 10.7 x 5.8 x 4.6 cm. Normal endometrium measuring 4 mm. No myometrial mass. Right ovary: Right ovary is unremarkable in size and appearance and measures 3.5 x 2.1 x 2.1 cm. No adnexal mass. Normal blood flow. Left ovary: Left ovary measures 9.7 x 9.9 x 7.3 cm. 9 cm simple appearing left ovarian cyst. Normal blood flow. Free fluid: No free fluid. Bladder: Unremarkable as visualized. Tubes, lines and devices: Intrauterine device IMPRESSION: 1. No sonographic evidence of ovarian torsion. 2. There is a 9 cm simple appearing left ovarian cyst. Since cysts of this size may be difficult to assess completely with ultrasound, further imaging with magnetic resonance (MR) of the pelvis or surgical evaluation should be considered. US Transvaginal (Non ) IMPRESSION: 1. No sonographic evidence of ovarian torsion. 2. There is a 9 cm simple appearing left ovarian cyst. Since cysts of this size may be difficult to assess completely with ultrasound, further imaging with magnetic resonance (MR) of the pelvis or surgical evaluation should be considered. Reevaluation Time: 00:09 Last Vital Signs Date Time Temp Pulse Resp B/P (MAP) Pulse Ox O2 Delivery O2 Flow Rate FiO2 09/29/19 21:34 97.5 85 16 119/73 (88) 99 Room Air Status: improved Disposition: ADMITTED INPATIENT Admit Decision Time: 23:30 Condition: Stable Cleo Rivers D.O. Sep 29, 2019 22:10
[2019-09-29 22:15] LABS: BASOPHILS % (AUTO) 0.4 % (0.0-2.0); EOSINOPHILS % (AUTO) 0.3 % (0.0-3.0); HEMATOCRIT 36.9 % (37.0-47.0); HEMOGLOBIN 12.4 G/DL (12.0-16.0); LYMPHOCYTES % (AUTO) 15.5 % (20.0-45.0); MEAN CORPUSCULAR VOLUME 93 FL (80-99); MONOCYTES % (AUTO) 4.5 % (1.0-10.0); NEUTROPHILS % (AUTO) 79.5 % (45.0-75.0); PLATELET COUNT 311 K/UL (150-450); RED BLOOD COUNT 3.99 M/UL (4.20-5.40); RED CELL DISTRIBUTION WIDTH 11.7 % (11.6-14.8); WHITE BLOOD COUNT 14.6 K/UL (4.8-10.8)
[2019-09-29 22:18] LABS: ANION GAP 15 mmol/L (5-15); BLOOD UREA NITROGEN 20 mg/dL (7-18); CALCIUM 9.7 MG/DL (8.5-10.1); CARBON DIOXIDE 25 MMOL/L (21-32); CHLORIDE 96 MMOL/L (98-107); CREATININE 1.6 MG/DL (0.55-1.30); POTASSIUM 3.9 MMOL/L (3.5-5.1); SODIUM 135 MMOL/L (136-145)
[2019-09-29 22:23] LABS: ALANINE AMINOTRANSFERASE 15 U/L (12-78); ALBUMIN/GLOBULIN RATIO 0.8 (1.0-2.7); ALKALINE PHOSPHATASE 56 U/L (46-116); ASPARTATE AMINO TRANSFERASE 12 U/L (15-37); BILIRUBIN,TOTAL 0.3 MG/DL (0.2-1.0)
[2019-09-29] MEDS ORDERED: Acetaminophen 500mg (ES) tab ORAL ONE (22:45)
[2019-09-29] MEDS ORDERED: cefTRIAXone 1 GM in NS 55 ML IVPB ONE (23:00)
--- NOTE | 2019-09-29 23:00 | NUR ---
ED Nurse Note: PT to CT
--- NOTE | 2019-09-29 23:15 | NUR ---
ED Nurse Note: Pt back from CT
[2019-09-29 23:16] LABS: APPEARANCE,URINE CLOUDY; COLOR,URINE YELLOW
[2019-09-29 23:17] LABS: BILIRUBIN, URINE NEGATIVE (NEGATIVE); GLUCOSE, URINE (UA) 1+ (NEGATIVE); KETONES,URINE NEGATIVE (NEGATIVE); LEUKOCYTE ESTERASE ,URINE 3+ (NEGATIVE); NITRITE,URINE NEGATIVE (NEGATIVE); PH,URINE 6.5 (4.5-8.0); PROTEIN,URINE NEGATIVE (NEGATIVE); UROBILINOGEN,URINE NORMAL MG/DL (0.0-1.0)
--- NOTE | 2019-09-29 23:32 | Diagnostic Imaging Report ---
EXAM: CT Abdomen and Pelvis Without Intravenous Contrast CLINICAL HISTORY: ABD PAIN TECHNIQUE: Axial computed tomography images of the abdomen and pelvis without intravenous contrast. CTDI is 7.6 mGy and DLP is 411.5 mGy-cm. One or more of the following dose reduction techniques were used: automated exposure control, adjustment of the mA and/or kV according to patient size, use of iterative reconstruction technique. COMPARISON: 08/02/2018 FINDINGS: Limitations: Lack of intravenous contrast. Lung bases: No significant abnormality. Heart: Small pericardial effusion. Mediastinum: Small hiatal hernia. ABDOMEN: Liver: No significant abnormality. Gallbladder and bile ducts: No significant abnormality. No calcified stones. Pancreas: No significant abnormality. Spleen: No significant abnormality. Adrenals: No significant abnormality. Kidneys and ureters: Atrophic bilateral [place] kidneys. Right lower quadrant transplant kidney. No hydronephrosis. Stomach and bowel: No significant abnormality. Bowel is nondilated. PELVIS: Appendix: High-density material is present in the nondilated appendix. No periappendiceal inflammatory change. Bladder: No significant abnormality. No calcified stones. Reproductive: Indeterminate cystic structure in the right pelvis is likely adnexal and appears slightly larger in size, now measuring up to 10.3 cm. ABDOMEN and PELVIS: Intraperitoneal space: No significant abnormality. No free air. Bones/joints: No acute fracture or malalignment. Soft tissues: No significant abnormality. Vasculature: No significant abnormality. No abdominal aortic aneurysm. Lymph nodes: No significant abnormality. Tubes, lines and devices: Appropriately positioned intrauterine device. IMPRESSION: Enlarging indeterminate 10.3 cm right adnexal cystic structure can be further characterized with pelvic ultrasound, as clinically indicated.
[2019-09-30] VITALS: BP 121/70
[2019-09-30] MEDS ORDERED: Hydromorphone 0.5mg/0.5ml inj ONE (00:51)
[2019-09-30] MEDS ORDERED: HYDROmorphone 1mg/ml Carpuject IVP ONE (01:00)
--- NOTE | 2019-09-30 01:00 | NUR ---
ED Nurse Note: pt resting in bed, US at bedside
--- NOTE | 2019-09-30 01:22 | Diagnostic Imaging Report ---
EXAM: US Pelvis Transabdominal and Transvaginal, Complete CLINICAL HISTORY: ABD PAIN TECHNIQUE: Real-time complete transabdominal and transvaginal pelvic ultrasound with image documentation. Transvaginal imaging was used for better evaluation of the endometrium and adnexa. COMPARISON: CT 09/30/2019 FINDINGS: Uterus/cervix: Heterogeneous uterus measures 10.7 x 5.8 x 4.6 cm. Normal endometrium measuring 4 mm. No myometrial mass. Right ovary: Right ovary is unremarkable in size and appearance and measures 3.5 x 2.1 x 2.1 cm. No adnexal mass. Normal blood flow. Left ovary: Left ovary measures 9.7 x 9.9 x 7.3 cm. 9 cm simple appearing left ovarian cyst. Normal blood flow. Free fluid: No free fluid. Bladder: Unremarkable as visualized. Tubes, lines and devices: Intrauterine device IMPRESSION: 1. No sonographic evidence of ovarian torsion. 2. There is a 9 cm simple appearing left ovarian cyst. Since cysts of this size may be difficult to assess completely with ultrasound, further imaging with magnetic resonance (MR) of the pelvis or surgical evaluation should be considered.
--- NOTE | 2019-09-30 01:32 | NUR ---
TRANSFER TO FLOOR: Patient transferred to as ordered, per DR gunn. Report given to BERT Lopez . Belongings and medications given to . Family and or S/O informed of transfer.
--- NOTE | 2019-09-30 01:37 | NUR ---
NURSE NOTES: Received report from BERT Moise. Pt arrived in the unit via wheelchair. Pt is awake, lying semi-zhang's; comfortably resting. No signs of acute distress noted. Pt reports 5/10 pain in the abdomen. AOx4; able to make needs known. Checked IV site; patent and flushed. No erythema, bleeding, or infiltration noted. Pt oriented to room. Bed at lowest position. Brakes on. Siderails up x3. Call light within reach. Will continue to monitor.
--- NOTE | 2019-09-30 01:38 | Diagnostic Imaging Report ---
EXAM: US Pelvis Transabdominal, Complete CLINICAL HISTORY: ABD PAIN TECHNIQUE: Real-time complete transabdominal and endovaginal pelvic ultrasound with image documentation. COMPARISON: No relevant prior studies available. FINDINGS: Uterus/cervix: Heterogeneous uterus measures 10.7 x 5.8 x 4.6 cm. Normal endometrium measuring 4 mm. No myometrial mass. Right ovary: Right ovary is unremarkable in size and appearance and measures 3.5 x 2.1 x 2.1 cm. No adnexal mass. Normal blood flow. Left ovary: Left ovary measures 9.7 x 9.9 x 7.3 cm. 9 cm simple appearing left ovarian cyst. Normal blood flow. Free fluid: No free fluid. Bladder: Unremarkable as visualized. Tubes, lines and devices: Intrauterine device IMPRESSION: 1. No sonographic evidence of ovarian torsion. 2. There is a 9 cm simple appearing left ovarian cyst. Since cysts of this size may be difficult to assess completely with ultrasound, further imaging with magnetic resonance (MR) of the pelvis or surgical evaluation should be considered.
[2019-09-30 01:51] VITALS: BP 132/78
[2019-09-30] MEDS ORDERED: BENAZEPRIL HCL20 MG ORAL (02:44)
[2019-09-30] MEDS ORDERED: PREDNISONE5 M4 PO (02:47)
[2019-09-30] MEDS ORDERED: MYCOPHENOLATE500 MG PO (02:49)
[2019-09-30] MEDS ORDERED: ADALAT10 MG ORAL (02:51)
[2019-09-30] MEDS ORDERED: MAGNESIUM100 MG PO (02:52)
[2019-09-30] MEDS ORDERED: SPIRONOLACTONE100 MG ORAL (02:52)
[2019-09-30] MEDS ORDERED: CALCITRIOL1 MCG/1 ML IV (02:53)
[2019-09-30] MEDS ORDERED: Acetaminophen 500mg (ES) tab ORAL PRN (03:00)
[2019-09-30 07:14] LABS: BASOPHILS % (AUTO) 0.4 % (0.0-2.0); EOSINOPHILS % (AUTO) 0.7 % (0.0-3.0); HEMATOCRIT 33.6 % (37.0-47.0); HEMOGLOBIN 11.5 G/DL (12.0-16.0); MEAN CORPUSCULAR VOLUME 92 FL (80-99); MONOCYTES % (AUTO) 7.5 % (1.0-10.0); NEUTROPHILS % (AUTO) 70.5 % (45.0-75.0); PLATELET COUNT 276 K/UL (150-450); RED BLOOD COUNT 3.63 M/UL (4.20-5.40); RED CELL DISTRIBUTION WIDTH 11.4 % (11.6-14.8); WHITE BLOOD COUNT 12.7 K/UL (4.8-10.8)
[2019-09-30 07:17] LABS: ALANINE AMINOTRANSFERASE 17 U/L (12-78); ALBUMIN 3.4 G/DL (3.4-5.0); ALBUMIN/GLOBULIN RATIO 0.7 (1.0-2.7); ALKALINE PHOSPHATASE 45 U/L (46-116); ANION GAP 8 mmol/L (5-15); ASPARTATE AMINO TRANSFERASE 14 U/L (15-37); BILIRUBIN,TOTAL 0.3 MG/DL (0.2-1.0); BLOOD UREA NITROGEN 14 mg/dL (7-18); CALCIUM 8.7 MG/DL (8.5-10.1); CARBON DIOXIDE 27 MMOL/L (21-32); CHLORIDE 103 MMOL/L (98-107); CREATININE 1.2 MG/DL (0.55-1.30); POTASSIUM 3.6 MMOL/L (3.5-5.1); SODIUM 138 MMOL/L (136-145)
--- NOTE | 2019-09-30 07:22 | NUR ---
NURSE HAND-OFF: Important Events on Shift: Abdominal pain radiating to the back and right leg Patient Status: Stable Diet: Clear liquod Pending Orders: Pain medications Pending Results/Labs: CBC, CMP Pending MD notification:N/A Latest Vital Signs: Temperature 98.6 , Pulse 72 , B/P 132 /78 , Respiratory Rate 16 , O2 SAT 99 , Room Air, O2 Flow Rate . Vital Sign Comment: Latest Pineda Fall Score: 35 Fall Risk: Medium Risk Safety Measures: Call light Within Reach, Bed Alarm , Side Rails Side Rails x3, Bed position Low and Locked. Fall Precautions: Yellow Socks Yellow Gown Door Sign Patient Fall Education Report given to BERT Chávez.
--- NOTE | 2019-09-30 07:30 | NUR ---
NURSE NOTES: Patient is in bed awake and able to verbalize needs. Stable. C/O 10/10 abdominal pain. Patient made aware that primary MD is aware and pain management doctor has already been consulted, will provide comfort measures at this time until pain medication is ordered. Breathing is even and unlabored. Patient instructed to use call light for assistance, verbalized understanding. All safety measures provided. Patient is in bed in locked and lowest position with call light within reach. All needs met at this time, will continue to monitor.
[2019-09-30] MEDS ORDERED: HYDROmorphone 1mg/ml Carpuject IVP SCH (07:45)
[2019-09-30 07:47] VITALS: BP 115/66
[2019-09-30] MEDS ORDERED: Carvedilol 25mg Tab ORAL SCH (09:00)
[2019-09-30] MEDS ORDERED: Benazepril 10mg tab ORAL SCH (09:00)
--- NOTE | 2019-09-30 11:57 | Consultation ---
Consult Note Consult Note I am asked to evaluate the patient at the request of Dr. Lua for renal failure Patient seen in room 302, discussed with BERT Peraza reviewed Emergency room note: 48F PMH R renal transplant ([place] 2004), HTN, anxiety, R ovarian cyst c/ o RLQ abd pain x 7 days but worse over the past 3 days. Radiates to R flank. Also associated with nausea, decreased appetite. Denies fevers, chills, vomiting, diarrhea, melena, hematochezia, hematuria, or other complaints. Last PO intake was today at 8pm. Last BM was this morning. LMP was this month but is irregular because she is on control (IUD) Pt has LUE AV fistula does not use AV fistula bc she still makes urine The patient's symptoms were gradual onset, severity was moderate, duration since 7 days, but worse over last 3 days, constant. Quality: aching Past medical history: Renal transplant, HTN, anxiety , R ovarian cyst Past surgical history: LUE AV fistula Coded Allergies: MORPHINE (Unverified Allergy, Unknown, 03/22/14) PNEUMOCOCCAL VACCINE (Unverified Allergy, Unknown, 09/29/19) SULFA (SULFONAMIDE ANTIBIOTICS) (Unverified Allergy, Unknown, 03/22/14) COVID-19 Screening Contact w/high risk pt: No Experienced COVID-19 symptoms?: No COVID-19 Testing performed COUTIERIER: No Last Menstrual Period: 09/13/19 Now: No : 0 Para: 0 Hx Cardiac Problems: Yes Hx Hypertension: Yes Hx Gastrointestinal Problems: Yes - Hepatitis C Hx Dialysis: No - KIDNEY TRANSPLANT PHYSICAL EXAMINATION: VITAL SIGNS: Temperature 97.5, pulse 67, blood pressure is 122/76. GENERAL APPEARANCE: No acute distress. Overweight. HEAD AND NECK: [place] conjunctivae. HEART: Normal rate. LUNGS: Clear. ABDOMEN: Soft. No CVA tenderness. Has mild tenderness in the right lower quadrant. Has a scar of surgery in the right lower quadrant. EXTREMITIES: Has no edema. LABORATORY AND DIAGNOSTIC DATA: Sodium 138, potassium 3.6, chloride 103, bicarb 27, BUN 14, creatinine 1.2. Creatinine at the time of admission was 1.6. Glucose is 114. UA showed wbc's of 40 to 60, rbc's 5 to 10, bacteria many. CT scan of the abdomen and pelvis showed enlarging 10.3 right adnexal mass. Abdominal ultrasound also showed adnexal mass, but reported in the left side. . 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 Over 35 min Martir Durbin MD Sep 30, 2019 11:57
[2019-09-30 12:00] VITALS: BP 122/76
[2019-09-30] MEDS: Hydromorphone 0.5mg/0.5ml inj IVP PRN ×2 (12:11→18:08)
[2019-09-30] MEDS: Calcitriol 0.25mcg Cap ORAL SCH (12:13)
[2019-09-30] MEDS: Mycophenolate 250mg cap ORAL SCH ×2 (12:14→17:57)
--- NOTE | 2019-09-30 14:34 | NUR ---
CASE MANAGEMENT:INITIAL REVIEW 48 YR OLD FEMALE BIBA FROM HOME CC;ABDOMINAL PAIN SI;PYELONEPHRITIS~H/O KIDNEY TRANSPLANT UTI. HYPONATREMIA. ACUTE KIDNEY INJURY. 98.0 85 16 121/70 99% ON RA WBC 14.6 NA 135 BUN 20 CR 1.6 BG 199 UA+ GLUCOSE, BLOOD, LEUKOCYTE ESTERASE, RBC, WBC, SQUAMOUS EPITH CELLS, BACTERIA COVID RAPID~NEGATIVE TRANSVAGINAL US ~ 1. No sonographic evidence of ovarian torsion. 2. There is a 9 cm simple appearing left ovarian cyst. Since cysts of this size may be difficult to assess completely with ultrasound, further imaging with magnetic resonance (MR) of the pelvis or surgical evaluation should be considered. ABD/PELVIS CT~ Enlarging indeterminate 10.3 cm right adnexal cystic structure can be further characterized with pelvic ultrasound, as clinically indicated. IS;IVF NS BOLUS DILAUDID IV ROCEPHIN IV TYLENOL PO ADMITTED TO [facility]
--- NOTE | 2019-09-30 14:38 | General Progress Note ---
Assessment/Plan Assessment/Plan: Assessment - UTI - s/p distant past KRT - Large ovarian cyst (discrepancy between CT and US with respect to side) - RLQ pain likely due to UTI and Cyst Recommendations - PO as tolerated - abx - has appt for outpatient surgical cyst drainage in October Subjective Allergies: Coded Allergies: MORPHINE (Unverified Allergy, Unknown, 03/22/14) PNEUMOCOCCAL VACCINE (Unverified Allergy, Unknown, 09/29/19) SULFA (SULFONAMIDE ANTIBIOTICS) (Unverified Allergy, Unknown, 03/22/14) Uncoded Allergies: SULFA (Allergy, Unknown, 08/02/18) Objective Last 24 Hour Vital Signs Date Time Temp Pulse Resp B/P (MAP) Pulse Ox O2 Delivery O2 Flow Rate FiO2 09/30/19 12:00 97.5 67 20 122/76 (91) 96 09/30/19 09:00 Room Air 09/30/19 07:47 97.3 71 20 115/66 (82) 98 09/30/19 01:51 98.6 72 16 132/78 (96) 99 09/30/19 01:45 Room Air 09/30/19 01:30 98.0 82 16 118/68 99 Room Air 09/30/19 01:24 98.0 09/30/19 00:00 97.8 82 16 121/70 99 Room Air 09/29/19 23:10 97.5 09/29/19 21:45 97.5 85 16 119/73 99 Room Air 09/29/19 21:45 85 16 Room Air 09/29/19 21:34 97.5 85 16 119/73 (88) 99 Room Air Intake and Output 09/29/19 09/30/19 19:00 07:00 Intake Total 200 ml Balance 200 ml Intake Oral 200 ml # Bowel Movements 1 Laboratory Tests 09/29/19 21:55: White Blood Count 14.6H, Red Blood Count 3.99L, Hemoglobin 12.4, Hematocrit 36.9L, Mean Corpuscular Volume 93, Mean Corpuscular Hemoglobin 31.0, Mean Corpuscular Hemoglobin Concent 33.5, Red Cell Distribution Width 11.7, Platelet Count 311, Mean Platelet Volume 7.0, Neutrophils (%) (Auto) 79.5H, Lymphocytes ( %) (Auto) 15.5L, Monocytes (%) (Auto) 4.5, Eosinophils (%) (Auto) 0.3, Basophils (%) (Auto) 0.4, Prothrombin Time 10.6, Prothromb Time International Ratio 1.0, Activated Partial Thromboplast Time 30, Sodium Level 135L, Potassium Level 3.9, Chloride Level 96L, Carbon Dioxide Level 25, Anion Gap 15, Blood Urea Nitrogen 20H, Creatinine 1.6H, Estimat Glomerular Filtration Rate 34.7, Glucose Level 199H, Calcium Level 9.7, Total Bilirubin 0.3, Aspartate Amino Transf (AST/SGOT) 12L, Alanine Aminotransferase (ALT/SGPT) 15, Alkaline Phosphatase 56, Total Protein 9.3H, Albumin 4.0, Globulin 5.3, Albumin/Globulin Ratio 0.8L, Lipase 181 09/29/19 22:30: Urine Color Yellow, Urine Appearance Cloudy, Urine pH 6.5, Urine Specific [place] [address] 1.010, Urine Protein Negative, Urine Glucose (UA) 1+H, Urine Ketones Negative, Urine Blood 1+H, Urine Nitrite Negative, Urine Bilirubin Negative, Urine Urobilinogen Normal, Urine Leukocyte Esterase 3+H, Urine RBC 5-10H, Urine WBC 40-60H, Urine Squamous Epithelial Cells ManyH, Urine Bacteria ManyH, Urine HCG, Qualitative Negative 09/30/19 04:50: White Blood Count 12.7H, Red Blood Count 3.63L, Hemoglobin 11.5L, Hematocrit 33.6L, Mean Corpuscular Volume 92, Mean Corpuscular Hemoglobin 31.6H, Mean Corpuscular Hemoglobin Concent 34.2, Red Cell Distribution Width 11.4L, Platelet Count 276, Mean Platelet Volume 6.5, Neutrophils (%) (Auto) 70.5, Lymphocytes (%) (Auto) 21.0, Monocytes (%) (Auto) 7.5, Eosinophils (%) (Auto) 0.7, Basophils (%) (Auto) 0.4, Sodium Level 138, Potassium Level 3.6, Chloride Level 103, Carbon Dioxide Level 27, Anion Gap 8, Blood Urea Nitrogen 14, Creatinine 1.2, Estimat Glomerular Filtration Rate 48.4, Glucose Level 114H, Calcium Level 8.7, Total Bilirubin 0.3, Aspartate Amino Transf (AST/SGOT) 14L, Alanine Aminotransferase (ALT/SGPT) 17, Alkaline Phosphatase 45L, Total Protein 8.1, Albumin 3.4, Globulin 4.7, Albumin/Globulin Ratio 0.7L Height (Feet): 5 Height (Inches): 2.00 Weight (Pounds): 166 Min Arvizu MD Sep 30, 2019 14:38
[2019-09-30 16:00] VITALS: BP 142/88
[2019-09-30] MEDS: Metoclopramide 10mg/2ml Inj IVP PRN (16:08)
[2019-09-30] MEDS: cefTRIAXone 2 GM in D5W 55 ML IVPB SCH (16:08)
--- NOTE | 2019-09-30 18:29 | Consultation ---
DATE OF CONSULTATION: 09/30/2019 GASTROENTEROLOGY CONSULTATION CHIEF COMPLAINT: I was asked to see this patient by Dr. Davie Marie for evaluation of abdominal pain. HISTORY OF PRESENT ILLNESS: The patient is a pleasant 48-year-old woman with history of cadaveric renal transplant many years ago who comes into the hospital due to 4-day history of right lower quadrant abdominal pain. The patient has had a stable course for renal transplant and is on stable immunosuppressants including prednisone, tacrolimus, and mycophenolate. The prednisone dose has been recently increased from 3 mg to 5 mg about a month or so. She has had a left salpingo-oophorectomy and has a vertical incision in the midline lower abdomen. The patient also had cadaveric renal transplant incision on the right side. For the past 4 days, she has had some waxing and waning and then constant right lower quadrant abdominal discomfort. There was no diarrhea. She has not had a bowel movement for about three days. Her last endoscopy and colonoscopy were about 10 years ago. She does not smoke or drink alcohol. 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 FAMILY HISTORY: Noncontributory. SOCIAL HISTORY: The patient is . She lives in [facility]. She does not smoke or drink alcohol. REVIEW OF SYSTEMS: The patient has had some nausea but no vomiting. She has no pets and no contacts with the same condition. PHYSICAL EXAMINATION: GENERAL: A pleasant woman, seen in her room. HEENT: Normocephalic and atraumatic. Sclerae anicteric. Oropharynx clear. NECK: Supple. CHEST: Clear to auscultation. CARDIOVASCULAR: Regular rate. ABDOMEN: Soft. Good bowel sounds. There is some mild degree of right lower quadrant tenderness which was mild without guarding or rebound. EXTREMITIES: Revealed no edema. LABORATORY AND DIAGNOSTIC DATA: Laboratory data noted. Ultrasound and CT scan was noted. ASSESSMENT: This patient presents with right lower quadrant abdominal pain and urinalysis consistent with urinary tract infection. The patient is being treated and she improved with respect to urinary tract infection. The right lower quadrant may indeed be due to the urinary tract infection since she has ovarian cyst and is well known and perhaps she has a surgical appointment for surgical drainage and removal of the cyst in October at [facility]. There is a discrepancy between the laterality of the cyst since on the CT it appears to be in the right and the pelvic ultrasound shows on the left. These images should be reviewed. In the meantime, the patient's exam should be followed for response. RECOMMENDATIONS: Per above discussion and per orders written in the chart. Thank you for asking me to participate in the care of this patient. Min Arvizu M.D. DR: Ellen JOB#: [id number] CC: TEVIN
--- NOTE | 2019-09-30 19:26 | NUR ---
NURSE HAND-OFF: Important Events on Shift:[pain management, hydration] Patient Status: stable Diet: AMBROCIO Pending Orders: n/a Pending Results/Labs:n/a Pending MD notification:n/a Latest Vital Signs: Temperature 97.5 , Pulse 75 , B/P 142 /88 , Respiratory Rate 20 , O2 SAT 97 , Room Air, O2 Flow Rate . Vital Sign Comment: n/a Latest Pineda Fall Score: 35 Fall Risk: Medium Risk Safety Measures: Call light Within Reach , Side Rails Side Rails x2, Bed position Low and Locked. Report given to Ijeoma NOEL.
--- NOTE | 2019-09-30 19:29 | Consultation ---
DATE OF CONSULTATION: 09/30/2019 INFECTIOUS DISEASE CONSULTATION CONSULTING PHYSICIAN: Avery Sherman MD. PRIMARY ATTENDING: Davie Marie MD. REASON FOR CONSULT: Complicated UTI. HISTORY OF PRESENT ILLNESS: Patient is a 48-year-old female admitted yesterday complaining of right lower quadrant abdominal pain that is increased in the past 4 days. Had nausea. No vomiting. Patient has history of right kidney transplant in 2004. PAST MEDICAL HISTORY: Includes hypertension, kidney transplant, anxiety. Has left upper extremity AV fistula that is not used for long time. ALLERGIES: Allergic to morphine, pneumococcal vaccine, sulfa drugs. MEDICATIONS: Getting Protonix, sodium chloride, mycophenolate, prednisone, calcitriol, hydromorphone, tacrolimus, acetaminophen, Ambien, and Zofran. SOCIAL HISTORY: . No history of alcohol, drug abuse, or smoking. Has no children. REVIEW OF SYSTEMS: Has no fever. No chills. No coughing. Nausea. No vomiting. No dysuria. Right lower abdominal pain. PHYSICAL EXAMINATION: VITAL SIGNS: Temperature 97.5, pulse 67, blood pressure is 122/76. GENERAL APPEARANCE: No acute distress. Overweight. HEAD AND NECK: [place] conjunctivae. HEART: Normal rate. LUNGS: Clear. ABDOMEN: Soft. No CVA tenderness. Has mild tenderness in the right lower quadrant. Has a scar of surgery in the right lower quadrant. EXTREMITIES: Has no edema. LABORATORY AND DIAGNOSTIC DATA: Sodium 138, potassium 3.6, chloride 103, bicarb 27, BUN 14, creatinine 1.2. Creatinine at the time of admission was 1.6. Glucose is 114. UA showed wbc's of 40 to 60, rbc's 5 to 10, bacteria many. CT scan of the abdomen and pelvis showed enlarging 10.3 right adnexal mass. Abdominal ultrasound also showed adnexal mass, but reported in the left side. IMPRESSION: Complicated UTI, status post kidney transplant. Patient has right ovarian cyst. is an immunosuppressive medication for prevention of transplant rejection. Has hypertension. RECOMMENDATION: Continue with ceftriaxone. We will follow up the cultures. At the end of my exam, I thank Dr. Marie for involving me in the care of this patient. Avery Sherman M.D. DR: FRITZ JOB#: [id number] CC: TEVIN
--- NOTE | 2019-09-30 19:30 | NUR ---
NURSE NOTES: Received patient and report from BERT Chávez. Patient a&ox4, in no acute distress and no complaint of pain. Noted shunt on left upper arm with thrill. IV site clean dry and intact with IV fluids running.
[2019-09-30 20:00] VITALS: BP 120/71
[2019-09-30] MEDS: Zolpidem 5mg tab ORAL PRN (20:55)
[2019-10-01] VITALS: BP 143/87
[2019-10-01] MEDS: Hydromorphone 0.5mg/0.5ml inj IVP PRN ×3 (02:11→15:38)
--- NOTE | 2019-10-01 03:30 | History and Physical Report ---
DATE OF ADMISSION: 09/29/2019 HISTORY OF PRESENT ILLNESS: The patient is being admitted to rule out UTI. The patient also has a history of kidney transplants, comes with abdominal pain. She is on chronic prednisone, mycophenolate, and tacrolimus. The patient is admitted for complicated UTI . CT showed no renal abscess or septic stone. The patient's abdominal pain was radiating to the right flank with nausea and decreased appetite as well. The patient's symptoms have been going on for about 4 days now. She is admitted for pyelonephritis. PAST MEDICAL HISTORY: Significant for hypertension, kidney transplant, and cystic ovarian syndrome. PAST SURGICAL HISTORY: Kidney transplant, left ovary removed, thyroidectomy, hemorrhoidectomy, and left arm shunt. ALLERGIES: Morphine, pneumococcal vaccine, sulfa. MEDICATIONS: Coreg, calcitriol, benazepril, mycophenolate, nifedipine, prednisone, spironolactone, Prograf. SOCIAL HISTORY: The patient denies history of smoking. Denies history of alcohol or illicit drugs. REVIEW OF SYSTEMS: HEENT: Denies headaches. Denies shortness of breath. Denies cough. CARDIOVASCULAR: Denies chest pain. Denies orthopnea. GASTROINTESTINAL: Reports abdominal pain for 4 days that radiates to the suprapubic area. The patient also has decreased appetite and nausea as well. No vomiting. EXTREMITIES: Denies pain in lower extremities. NEUROLOGIC: Denies change in speech pattern. PHYSICAL EXAMINATION: VITAL SIGNS: Temperature is 97.5, pulse is 67, and blood pressure is 122/76. HEENT: PERRLA. NECK: Supple. CHEST: Clear to auscultation. CARDIOVASCULAR: Regular rate and rhythm. No murmurs or extra sounds. GASTROINTESTINAL: Soft, nontender. The patient does have mild tenderness in the suprapubic area. No rebound. No organomegaly. EXTREMITIES: No edema. Moves all four extremities. Sensory intact to light touch. Reflexes in both sides. LABORATORY DATA: WBC of 14.6, hemoglobin of 12.4, and platelets 311. Sodium 135, potassium of 3.9, BUN of 20, creatinine of 1.6, and glucose of 199. Lipase is 181. ASSESSMENT AND PLAN: Abdominal pain, UTI, kidney transplant. I have consulted Dr. Arvizu, Dr. Alejandro, Dr. Durbin, Dr. Reza Interiano, and Dr. Avery Sherman to help with the pain management as well as for abdominal workup as well as to help with the kidney transplant medication, anti-rejection medication, as well as for the treatment of UTI. We will monitor the patient closely. Davie Marie M.D. DR: KAREN JOB#: [id number] CC:
[2019-10-01 04:07] VITALS: BP 140/82
[2019-10-01 06:04] LABS: BASOPHILS % (AUTO) 0.5 % (0.0-2.0); EOSINOPHILS % (AUTO) 0.6 % (0.0-3.0); HEMATOCRIT 32.7 % (37.0-47.0); HEMOGLOBIN 10.8 G/DL (12.0-16.0); LYMPHOCYTES % (AUTO) 21.1 % (20.0-45.0); MEAN CORPUSCULAR VOLUME 94 FL (80-99); MONOCYTES % (AUTO) 8.1 % (1.0-10.0); NEUTROPHILS % (AUTO) 69.8 % (45.0-75.0); PLATELET COUNT 259 K/UL (150-450); RED BLOOD COUNT 3.49 M/UL (4.20-5.40); RED CELL DISTRIBUTION WIDTH 11.7 % (11.6-14.8); WHITE BLOOD COUNT 12.2 K/UL (4.8-10.8)
[2019-10-01 06:40] LABS: ALANINE AMINOTRANSFERASE 12 U/L (12-78); ALBUMIN 3.1 G/DL (3.4-5.0); ALBUMIN/GLOBULIN RATIO 0.7 (1.0-2.7); ALKALINE PHOSPHATASE 40 U/L (46-116); ANION GAP 10 mmol/L (5-15); ASPARTATE AMINO TRANSFERASE 11 U/L (15-37); BILIRUBIN,TOTAL 0.2 MG/DL (0.2-1.0); BLOOD UREA NITROGEN 13 mg/dL (7-18); CALCIUM 7.7 MG/DL (8.5-10.1); CARBON DIOXIDE 27 MMOL/L (21-32); CHLORIDE 102 MMOL/L (98-107); CHOLESTEROL 184 MG/DL (< 200); FERRITIN 78 NG/ML (8-388); GAMMA GLUTAMYL TRANSPEPTIDASE 13 U/L (5-85); HDL CHOLESTEROL 41 MG/DL (40-60); PHOSPHORUS 3.3 MG/DL (2.5-4.9); POTASSIUM 3.6 MMOL/L (3.5-5.1); SODIUM 139 MMOL/L (136-145); TRIGLYCERIDES 124 MG/DL (30-150)
[2019-10-01 06:43] LABS: % IRON SATURATION 33 % (15-50); IRON 67 ug/dL (50-175); TOTAL IRON BINDING CAPACITY 206 ug/dL (250-450)
--- NOTE | 2019-10-01 07:09 | NUR ---
NURSE HAND-OFF: Important Events on Shift:pain mgmt, new iv site Patient Status: stable Diet: AMBROCIO Pending Orders: none Pending Results/Labs:none Pending MD notification:none Latest Vital Signs: Temperature 98.9 , Pulse 78 , B/P 140 /82 , Respiratory Rate 17 , O2 SAT 97 , Room Air, O2 Flow Rate . Vital Sign Comment: none Latest Pineda Fall Score: 35 Fall Risk: Medium Risk Safety Measures: Call light Within Reach, Bed Alarm , Side Rails Side Rails x2, Bed position Low and Locked. Fall Precautions: Yellow Socks Yellow Gown Door Sign Patient Fall Education Report given to BERT Chávez. Addendum: 10/01/19 at 0713 by Ijeoma Vick RN Pending [facility] 10/01 @ 0207
--- NOTE | 2019-10-01 07:28 | NUR ---
NURSE NOTES: Patient is in bed asleep. Stable. No visible signs of distress noted. Breathing is even and unlabored. All safety measures provided. Patient is in bed in locked and lowest position with call light within reach. Will continue to monitor.
[2019-10-01 08:00] VITALS: BP 141/83
[2019-10-01] MEDS: Mycophenolate 250mg cap ORAL SCH ×2 (08:45→17:12)
[2019-10-01] MEDS: Calcitriol 0.25mcg Cap ORAL SCH (08:45)
[2019-10-01] MEDS ORDERED: Sorbitol Solution UD 30ml ORAL SCH (09:00)
[2019-10-01] MEDS ORDERED: traMADol 50mg tab ORAL PRN (10:00)
--- NOTE | 2019-10-01 10:01 | Consultation ---
History of Present Illness General Date patient seen: Oct 01, 2019 Time patient seen: 09:30 - am Chief Complaint: Pelvic pain Referring physician: Cynthia Reason for Consultation: Pain Management Present Illness HPI HISTORY OF PRESENT ILLNESS: This is a 48 y/o female seen on the med/surge floor of [facility] [place]. Having c/o pelvic pain and was started on Dilaudid 0.25mgh IV Q4H PRN with pain relief. She has no new complaints at this time. Pt is german speaking and being interpreted. PAST MEDICAL HISTORY: Significant for hypertension, kidney transplant, and cystic ovarian syndrome. PAST SURGICAL HISTORY: Kidney transplant, left ovary removed, thyroidectomy, hemorrhoidectomy, and left arm shunt. ALLERGIES: Morphine, pneumococcal vaccine, sulfa. MEDICATIONS: Coreg, calcitriol, benazepril, mycophenolate, nifedipine, prednisone, spironolactone, Prograf. SOCIAL HISTORY: The patient denies history of smoking. Denies history of alcohol or illicit drugs. Allergies: Coded Allergies: MORPHINE (Unverified Allergy, Unknown, 03/22/14) PNEUMOCOCCAL VACCINE (Unverified Allergy, Unknown, 09/29/19) SULFA (SULFONAMIDE ANTIBIOTICS) (Unverified Allergy, Unknown, 03/22/14) Uncoded Allergies: SULFA (Allergy, Unknown, 08/02/18) Medication History Scheduled Benazepril Hcl* (Benazepril Hcl*), 10 MG ORAL DAILY, (Reported) Calcitriol (Calcitriol), 0.25 MCG PO TWICE A DAY, (Reported) Calcitriol (Calcitriol*), 1 MCG IV DAILY, (Reported) Calcium Carbonate/Vitamin D3 ([place]ysco 500+D Tablet), 1 EACH PO THREE TIMES A DAY, (Reported) Carvedilol (Coreg), 25 MG ORAL BID, (Reported) Magnesium Amino Acid Chelate (Magnesium), 100 MG PO BID, (Reported) Magnesium Oxide (Magnesium Oxide), 400 MG ORAL THREE TIMES A DAY, (Reported) Mycophenolate Mofetil (Cellcept), 500 MG ORAL EVERY 12 HOURS, (Reported) Mycophenolate Mofetil (Mycophenolate Mofetil), 500 MG PO TWICE A DAY, (Reported) Mycophenolate Mofetil (Mycophenolate Mofetil), 750 MG PO BID, (Reported) Nifedipine (Nifedipine*), 10 MG ORAL DAILY, (Reported) Prednisone (Prednisone), 3 MG PO DAILY, (Reported) Spironolactone* (Spironolactone*), 50 MG ORAL DAILY, (Reported) Tacrolimus (Prograf), 0.5 MG PO BID, (Reported) Scheduled PRN Acetaminophen* (Tylenol Extra Strength*), 500 MG ORAL Q6H PRN for Mild Pain/ Temp > 100.5, (Reported) Benazepril Hcl* (Benazepril Hcl*), 20 MG ORAL DAILY PRN for For High Blood Pressure, (Reported) Prednisone (Prednisone), 5 MG PO DAILY PRN for For High Blood Pressure, ( Reported) Zolpidem Tartrate* (Ambien*), 10 MG ORAL BEDTIME PRN for Insomnia, (Reported) Miscellaneous Medications [magnesium sulfate], (Reported) Discontinued Medications Cephalexin (Cephalexin), 500 MG ORAL FOUR TIMES A DAY Discontinued Reason: Pt stopped taking med Cephalexin* (Keflex*), 500 MG ORAL QID, (Reported) Discontinued Reason: Pt stopped taking med Nitrofurantoin Monohyd/M-Cryst (Nitrofurantoin [place]-Mcr 100 mg), 100 MG ORAL Q12H Discontinued Reason: Pt stopped taking med Patient History Healthcare decision maker Resuscitation status Advanced Directive on File Review of Systems ROS Narrative REVIEW OF SYSTEMS: HEENT: Denies headaches. Denies shortness of breath. Denies cough. CARDIOVASCULAR: Denies chest pain. Denies orthopnea. GASTROINTESTINAL: Reports pelvic pain for 4 days that radiates to the suprapubic area. The patient also has decreased appetite and nausea as well. No vomiting. EXTREMITIES: Denies pain in lower extremities. NEUROLOGIC: Denies change in speech pattern. Physical Exam Physical Exam Narrative HEENT: PERRLA. NECK: Supple. CHEST: Clear to auscultation. CARDIOVASCULAR: Regular rate and rhythm. No murmurs or extra sounds. GASTROINTESTINAL: Soft, nontender. The patient does have mild tenderness in the suprapubic area. No rebound. No organomegaly. EXTREMITIES: No edema. Moves all four extremities. Sensory intact to light touch. Reflexes in both sides. Last 24 Hour Vital Signs Date Time Temp Pulse Resp B/P (MAP) Pulse Ox O2 Delivery O2 Flow Rate FiO2 10/01/19 08:00 99.6 79 16 141/83 (102) 97 10/01/19 07:58 Room Air 10/01/19 04:07 98.9 78 17 140/82 (101) 97 10/01/19 00:00 98.9 79 18 143/87 (105) 97 09/30/19 21:00 Room Air 09/30/19 20:00 97.4 73 17 120/71 (87) 96 09/30/19 16:00 97.5 75 20 142/88 (106) 97 09/30/19 12:00 97.5 67 20 122/76 (91) 96 Intake and Output 09/30/19 10/01/19 19:00 07:00 Intake Total 1500 ml Balance 1500 ml Intake Oral 600 ml IV Total 900 ml # Voids 3 Laboratory Tests Test 09/30/19 12:00 10/01/19 04:45 Urine Random Sodium 103 mmol/L (20-110) White Blood Count 12.2 K/UL (4.8-10.8) H Red Blood Count 3.49 M/UL (4.20-5.40) L Hemoglobin 10.8 G/DL (12.0-16.0) L Hematocrit 32.7 % (37.0-47.0) L Mean Corpuscular Volume 94 FL (80-99) Mean Corpuscular Hemoglobin 31.1 PG (27.0-31.0) H Mean Corpuscular Hemoglobin Concent 33.2 G/DL (32.0-36.0) Red Cell Distribution Width 11.7 % (11.6-14.8) Platelet Count 259 K/UL (150-450) Mean Platelet Volume 6.7 FL (6.5-10.1) Neutrophils (%) (Auto) 69.8 % (45.0-75.0) Lymphocytes (%) (Auto) 21.1 % (20.0-45.0) Monocytes (%) (Auto) 8.1 % (1.0-10.0) Eosinophils (%) (Auto) 0.6 % (0.0-3.0) Basophils (%) (Auto) 0.5 % (0.0-2.0) Sodium Level 139 MMOL/L (136-145) Potassium Level 3.6 MMOL/L (3.5-5.1) Chloride Level 102 MMOL/L (98-107) Carbon Dioxide Level 27 MMOL/L (21-32) Anion Gap 10 mmol/L (5-15) Blood Urea Nitrogen 13 mg/dL (7-18) Creatinine 1.0 MG/DL (0.55-1.30) Estimat Glomerular Filtration Rate 59.7 mL/min (>60) Glucose Level 108 MG/DL (74-106) H Hemoglobin A1c 6.4 % (4.3-6.0) H Uric Acid 6.3 MG/DL (2.6-7.2) Calcium Level 7.7 MG/DL (8.5-10.1) L Phosphorus Level 3.3 MG/DL (2.5-4.9) Magnesium Level 1.4 MG/DL (1.8-2.4) L Iron Level 67 ug/dL (50-175) Total Iron Binding Capacity 206 ug/dL (250-450) L Percent Iron Saturation 33 % (15-50) Unsaturated Iron Binding 139 ug/dL (112-346) Ferritin 78 NG/ML (8-388) Total Bilirubin 0.2 MG/DL (0.2-1.0) Gamma Glutamyl Transpeptidase 13 U/L (5-85) Aspartate Amino Transf (AST/SGOT) 11 U/L (15-37) L Alanine Aminotransferase (ALT/SGPT) 12 U/L (12-78) Alkaline Phosphatase 40 U/L (46-116) L C-Reactive Protein, Quantitative 0.9 mg/dL (0.00-0.90) Pro-B-Type Natriuretic Peptide 759 pg/mL (0-125) H Total Protein 7.5 G/DL (6.4-8.2) Albumin 3.1 G/DL (3.4-5.0) L Globulin 4.4 g/dL Albumin/Globulin Ratio 0.7 (1.0-2.7) L Triglycerides Level 124 MG/DL (30-150) Cholesterol Level 184 MG/DL (< 200) LDL Cholesterol 122 mg/dL (<100) H HDL Cholesterol 41 MG/DL (40-60) Cholesterol/HDL Ratio 4.5 (3.3-4.4) H Vitamin B12 Level 324 PG/ML (193-986) Folate 6.1 NG/ML (8.6-58.9) L Thyroid Stimulating Hormone (TSH) 3.181 uiU/mL (0.358-3.740) Height (Feet): 5 Height (Inches): 2.00 Weight (Pounds): 166 Medications Current Medications Medications (Trade) Dose Ordered Sig/Aroldo Route PRN Reason Start Time Stop Time Status Last Admin Dose Admin Acetaminophen (Tylenol) 500 mg Q6H PRN ORAL MILD/TEMP 09/30/19 03:00 10/30/19 02:59 Calcitriol (Rocatrol) 0.5 mcg DAILY ORAL 09/30/19 11:30 12/29/19 11:29 10/01/19 08:45 Ceftriaxone Sodium 2 gm/ Dextrose 55 ml @ 110 mls/hr Q24H IVPB 09/30/19 16:00 10/07/19 15:59 09/30/19 16:08 Folic Acid (Folate) 2 mg DAILY ORAL 10/01/19 09:00 10/31/19 08:59 10/01/19 08:46 Hydromorphone HCl (Dilaudid) 0.25 mg Q4H PRN IVP For Pain 09/30/19 09:30 10/07/19 09:29 10/01/19 08:52 Magnesium Sulfate 100 ml @ 100 mls/hr Q1H IVPB 10/01/19 09:00 10/01/19 12:59 10/01/19 08:45 Metoclopramide HCl (Reglan) 5 mg Q6H PRN IVP Nausea & Vomiting 09/30/19 16:00 10/30/19 15:59 09/30/19 16:08 Mycophenolate Mofetil (Cellcept) 750 mg TWICE A DAY ORAL 09/30/19 11:30 12/29/19 11:29 10/01/19 08:45 Ondansetron HCl (Zofran) 4 mg Q6H PRN IVP Nausea & Vomiting 09/30/19 01:30 10/30/19 01:29 09/30/19 12:15 Pantoprazole (Protonix) 40 mg DAILY ORAL 09/30/19 12:00 10/30/19 11:59 10/01/19 08:46 Prednisone (predniSONE) 5 mg DAILY ORAL 09/30/19 11:30 10/30/19 11:29 10/01/19 08:45 Sodium Chloride 1,000 ml @ 75 mls/hr [id number] IV 09/30/19 12:00 10/30/19 11:59 10/01/19 02:11 Tacrolimus (Prograf) 0.5 mg BID@0900,2100 ORAL 09/30/19 09:00 12/29/19 08:59 10/01/19 08:45 Tramadol HCl (Ultram) 50 mg EVERY 4 HOURS PRN ORAL moderate pain 10/01/19 10:00 10/08/19 09:59 UNV Zolpidem Tartrate (Ambien) 5 mg BEDTIME PRN ORAL Insomnia 09/30/19 03:00 10/07/19 02:59 09/30/19 20:55 Assessment/Plan Assessment/Plan: (1) Pelvic pain (2) Ovarian Cyst Patient will be continued on Dilaudid We will start Tramadol 50mg PO 1 tab Q4H PRN moderate pain D/w Dr. Alejandro and he concurred. Thank you for consult Villa Shah Oct 01, 2019 10:01
--- NOTE | 2019-10-01 10:59 | Infectious Diseases Prog Note ---
Assessment/Plan Assessment/Plan IMPRESSION: Complicated UTI, Status post kidney transplant. Right ovarian cyst. On immunosuppressive medications Hypertension. RECOMMENDATION: Continue with ceftriaxone. We will follow up the cultures. Subjective ROS Limited/Unobtainable: Yes Constitutional: Denies: fever Allergies: Coded Allergies: MORPHINE (Unverified Allergy, Unknown, 03/22/14) PNEUMOCOCCAL VACCINE (Unverified Allergy, Unknown, 09/29/19) SULFA (SULFONAMIDE ANTIBIOTICS) (Unverified Allergy, Unknown, 03/22/14) Uncoded Allergies: SULFA (Allergy, Unknown, 08/02/18) Objective Last 24 Hour Vital Signs Date Time Temp Pulse Resp B/P (MAP) Pulse Ox O2 Delivery O2 Flow Rate FiO2 10/01/19 08:00 99.6 79 16 141/83 (102) 97 10/01/19 07:58 Room Air 10/01/19 04:07 98.9 78 17 140/82 (101) 97 10/01/19 00:00 98.9 79 18 143/87 (105) 97 09/30/19 21:00 Room Air 09/30/19 20:00 97.4 73 17 120/71 (87) 96 09/30/19 16:00 97.5 75 20 142/88 (106) 97 09/30/19 12:00 97.5 67 20 122/76 (91) 96 Height (Feet): 5 Height (Inches): 2.00 Weight (Pounds): 166 General Appearance: no acute distress HEENT: mucous membranes moist Respiratory/Chest: lungs clear Cardiovascular: normal rate Abdomen: other - soft Extremities: no edema Neurologic/Psychiatric: other - sleeping Microbiology Date/Time Source Procedure Growth Status 09/30/19 00:00 Nasopharynx SARS-CoV-2 RdRp Gene Assay - Final Complete 09/29/19 22:30 Urine,Clean Catch Urine Culture - Preliminary Resulted Laboratory Tests Test 09/30/19 12:00 10/01/19 04:45 Urine Random Sodium 103 mmol/L (20-110) White Blood Count 12.2 K/UL (4.8-10.8) H Red Blood Count 3.49 M/UL (4.20-5.40) L Hemoglobin 10.8 G/DL (12.0-16.0) L Hematocrit 32.7 % (37.0-47.0) L Mean Corpuscular Volume 94 FL (80-99) Mean Corpuscular Hemoglobin 31.1 PG (27.0-31.0) H Mean Corpuscular Hemoglobin Concent 33.2 G/DL (32.0-36.0) Red Cell Distribution Width 11.7 % (11.6-14.8) Platelet Count 259 K/UL (150-450) Mean Platelet Volume 6.7 FL (6.5-10.1) Neutrophils (%) (Auto) 69.8 % (45.0-75.0) Lymphocytes (%) (Auto) 21.1 % (20.0-45.0) Monocytes (%) (Auto) 8.1 % (1.0-10.0) Eosinophils (%) (Auto) 0.6 % (0.0-3.0) Basophils (%) (Auto) 0.5 % (0.0-2.0) Sodium Level 139 MMOL/L (136-145) Potassium Level 3.6 MMOL/L (3.5-5.1) Chloride Level 102 MMOL/L (98-107) Carbon Dioxide Level 27 MMOL/L (21-32) Anion Gap 10 mmol/L (5-15) Blood Urea Nitrogen 13 mg/dL (7-18) Creatinine 1.0 MG/DL (0.55-1.30) Estimat Glomerular Filtration Rate 59.7 mL/min (>60) Glucose Level 108 MG/DL (74-106) H Hemoglobin A1c 6.4 % (4.3-6.0) H Uric Acid 6.3 MG/DL (2.6-7.2) Calcium Level 7.7 MG/DL (8.5-10.1) L Phosphorus Level 3.3 MG/DL (2.5-4.9) Magnesium Level 1.4 MG/DL (1.8-2.4) L Iron Level 67 ug/dL (50-175) Total Iron Binding Capacity 206 ug/dL (250-450) L Percent Iron Saturation 33 % (15-50) Unsaturated Iron Binding 139 ug/dL (112-346) Ferritin 78 NG/ML (8-388) Total Bilirubin 0.2 MG/DL (0.2-1.0) Gamma Glutamyl Transpeptidase 13 U/L (5-85) Aspartate Amino Transf (AST/SGOT) 11 U/L (15-37) L Alanine Aminotransferase (ALT/SGPT) 12 U/L (12-78) Alkaline Phosphatase 40 U/L (46-116) L C-Reactive Protein, Quantitative 0.9 mg/dL (0.00-0.90) Pro-B-Type Natriuretic Peptide 759 pg/mL (0-125) H Total Protein 7.5 G/DL (6.4-8.2) Albumin 3.1 G/DL (3.4-5.0) L Globulin 4.4 g/dL Albumin/Globulin Ratio 0.7 (1.0-2.7) L Triglycerides Level 124 MG/DL (30-150) Cholesterol Level 184 MG/DL (< 200) LDL Cholesterol 122 mg/dL (<100) H HDL Cholesterol 41 MG/DL (40-60) Cholesterol/HDL Ratio 4.5 (3.3-4.4) H Vitamin B12 Level 324 PG/ML (193-986) Folate 6.1 NG/ML (8.6-58.9) L Thyroid Stimulating Hormone (TSH) 3.181 uiU/mL (0.358-3.740) Current Medications Medications (Trade) Dose Ordered Sig/Aroldo Route PRN Reason Start Time Stop Time Status Last Admin Dose Admin Acetaminophen (Tylenol) 500 mg Q6H PRN ORAL MILD/TEMP 09/30/19 03:00 10/30/19 02:59 Calcitriol (Rocatrol) 0.5 mcg DAILY ORAL 09/30/19 11:30 12/29/19 11:29 10/01/19 08:45 Ceftriaxone Sodium 2 gm/ Dextrose 55 ml @ 110 mls/hr Q24H IVPB 09/30/19 16:00 10/07/19 15:59 09/30/19 16:08 Folic Acid (Folate) 2 mg DAILY ORAL 10/01/19 09:00 10/31/19 08:59 10/01/19 08:46 Hydromorphone HCl (Dilaudid) 0.25 mg Q4H PRN IVP Severe Pain (Pain Scale 7-10) 10/01/19 12:52 10/08/19 12:51 Magnesium Sulfate 100 ml @ 100 mls/hr Q1H IVPB 10/01/19 09:00 10/01/19 12:59 10/01/19 10:09 Metoclopramide HCl (Reglan) 5 mg Q6H PRN IVP Nausea & Vomiting 09/30/19 16:00 10/30/19 15:59 09/30/19 16:08 Mycophenolate Mofetil (Cellcept) 750 mg TWICE A DAY ORAL 09/30/19 11:30 12/29/19 11:29 10/01/19 08:45 Ondansetron HCl (Zofran) 4 mg Q6H PRN IVP Nausea & Vomiting 09/30/19 01:30 10/30/19 01:29 09/30/19 12:15 Pantoprazole (Protonix) 40 mg DAILY ORAL 09/30/19 12:00 10/30/19 11:59 10/01/19 08:46 Prednisone (predniSONE) 5 mg DAILY ORAL 09/30/19 11:30 10/30/19 11:29 10/01/19 08:45 Sodium Chloride 1,000 ml @ 75 mls/hr [id number] IV 09/30/19 12:00 10/30/19 11:59 10/01/19 02:11 Tacrolimus (Prograf) 0.5 mg BID@0900,2100 ORAL 09/30/19 09:00 12/29/19 08:59 10/01/19 08:45 Tramadol HCl (Ultram) 50 mg Q4H PRN ORAL Moderate Pain (Pain Scale 4-6) 10/01/19 10:15 10/08/19 10:14 Zolpidem Tartrate (Ambien) 5 mg BEDTIME PRN ORAL Insomnia 09/30/19 03:00 10/07/19 02:59 09/30/19 20:55 Avery Sherman MD Oct 01, 2019 10:59
[2019-10-01 12:00] VITALS: BP 143/81
--- NOTE | 2019-10-01 12:29 | Nephrology Progress Note ---
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 On IV fluids Magnesium sulfate IV as needed Oral folic acid given Keep the blood pressure over 100 systolic and in check Monitor renal parameters and electrolytes Anemia work-up noted Continue antirejection medication Continue per consultants, antibiotics for UTI Per orders Subjective ROS Limited/Unobtainable: No Constitutional: Reports: malaise, weakness Objective Objective Last 24 Hour Vital Signs Date Time Temp Pulse Resp B/P (MAP) Pulse Ox O2 Delivery O2 Flow Rate FiO2 10/01/19 08:00 99.6 79 16 141/83 (102) 97 10/01/19 07:58 Room Air 10/01/19 04:07 98.9 78 17 140/82 (101) 97 10/01/19 00:00 98.9 79 18 143/87 (105) 97 09/30/19 21:00 Room Air 09/30/19 20:00 97.4 73 17 120/71 (87) 96 09/30/19 16:00 97.5 75 20 142/88 (106) 97 Intake and Output 09/30/19 10/01/19 19:00 07:00 Intake Total 1500 ml Balance 1500 ml Intake Oral 600 ml IV Total 900 ml # Voids 3 Laboratory Tests 10/01/19 04:45: White Blood Count 12.2H, Red Blood Count 3.49L, Hemoglobin 10.8L, Hematocrit 32.7L, Mean Corpuscular Volume 94, Mean Corpuscular Hemoglobin 31.1H, Mean Corpuscular Hemoglobin Concent 33.2, Red Cell Distribution Width 11.7, Platelet Count 259, Mean Platelet Volume 6.7, Neutrophils (%) (Auto) 69.8, Lymphocytes (% ) (Auto) 21.1, Monocytes (%) (Auto) 8.1, Eosinophils (%) (Auto) 0.6, Basophils ( %) (Auto) 0.5, Sodium Level 139, Potassium Level 3.6, Chloride Level 102, Carbon Dioxide Level 27, Anion Gap 10, Blood Urea Nitrogen 13, Creatinine 1.0, Estimat Glomerular Filtration Rate 59.7, Glucose Level 108H, Hemoglobin A1c 6.4H , Uric Acid 6.3, Calcium Level 7.7L, Phosphorus Level 3.3, Magnesium Level 1.4L , Iron Level 67, Total Iron Binding Capacity 206L, Percent Iron Saturation 33, Unsaturated Iron Binding 139, Ferritin 78, Total Bilirubin 0.2, Gamma Glutamyl Transpeptidase 13, Aspartate Amino Transf (AST/SGOT) 11L, Alanine Aminotransferase (ALT/SGPT) 12, Alkaline Phosphatase 40L, C-Reactive Protein, Quantitative 0.9, Pro-B-Type Natriuretic Peptide 759H, Total Protein 7.5, Albumin 3.1L, Globulin 4.4, Albumin/Globulin Ratio 0.7L, Triglycerides Level 124 , Cholesterol Level 184, LDL Cholesterol 122H, HDL Cholesterol 41, Cholesterol/ HDL Ratio 4.5H, Vitamin B12 Level 324, Folate 6.1L, Thyroid Stimulating Hormone (TSH) 3.181 Height (Feet): 5 Height (Inches): 2.00 Weight (Pounds): 166 General Appearance: mild distress - Due to abdominal pain, other - Has low- grade fever Cardiovascular: normal rate Respiratory/Chest: decreased breath sounds Abdomen: soft Martir Durbin MD Oct 01, 2019 12:29
--- NOTE | 2019-10-01 12:58 | NUR ---
CASE MANAGEMENT:REVIEW 10/01/19 SI:PYELONEPHRITIS. LEFT OVARIAN CYST 10.3CM UTI. HYPONATREMIA. ACUTE KIDNEY INJURY ~H/O KIDNEY TRANSPLANT 99.6 79 16 141/83 97% ON RA WBC 12.2 CA+7.7 MG 1.4 BNP 759 IS:IV MG SULFATE X4 BAGS IV NS @50ML/HR IV ROCEPHIN QD PREDNISONE PO QD \: 3E MED SURG UNIT PLAN: DRAINAGE OF CYST (OUTPATIENT) CONT IV ABX
[2019-10-01] MEDS: traMADol 50mg tab ORAL PRN ×2 (13:05→17:07)
--- NOTE | 2019-10-01 13:07 | NUR ---
*-* INSURANCE *-* UPDATED CLINICALS AND REVIEWS HAVE BEEN FAXED TO: [employer] T:[phone] F:[phone]
[2019-10-01 15:01] LABS: APPEARANCE,URINE SLIGHTLY CLOUDY; COLOR,URINE PALE YELLOW; GLUCOSE, URINE (UA) 2+ (NEGATIVE); KETONES,URINE NEGATIVE (NEGATIVE); PH,URINE 5 (4.5-8.0); PROTEIN,URINE NEGATIVE (NEGATIVE)
[2019-10-01 15:02] LABS: BILIRUBIN, URINE 1+ (NEGATIVE); LEUKOCYTE ESTERASE ,URINE 2+ (NEGATIVE); NITRITE,URINE NEGATIVE (NEGATIVE); UROBILINOGEN,URINE NORMAL MG/DL (0.0-1.0)
--- NOTE | 2019-10-01 15:13 | NUR ---
*-* INSURANCE *-* UPDATED CLINICALS AND REVIEWS HAVE BEEN FAXED TO: [employer] Ref# [id number] ph#[phone] fax#[phone]
--- NOTE | 2019-10-01 15:27 | Consultation ---
Consult Note Consult Note HISTORY OF PRESENT ILLNESS: The patient is a pleasant 48-year-old woman with history of cadaveric renal transplant many years ago who comes into the hospital due to 4-day history of right lower quadrant abdominal pain. I have been asked to consult because of abnormal CT findings The patient has had a stable course for renal transplant and is on stable immunosuppressants including prednisone, tacrolimus, and mycophenolate. The prednisone dose has been recently increased from 3 mg to 5 mg about a month or so. She has had a left salpingo-oophorectomy and has a vertical incision in the midline lower abdomen. The patient also had cadaveric renal transplant incision on the right side. For the past 4 days, she has had some waxing and waning and then constant right lower quadrant abdominal discomfort. There was no diarrhea. She has not had a bowel movement for about three days. Her last endoscopy and colonoscopy were about 10 years ago. She does not smoke or drink alcohol. 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 FAMILY HISTORY: Noncontributory. SOCIAL HISTORY: The patient is . She lives in [facility]. She does not smoke or drink alcohol. REVIEW OF SYSTEMS: The patient has had some nausea but no vomiting. She has no pets and no contacts with the same condition. PHYSICAL EXAMINATION: GENERAL: A pleasant woman, seen in her room. HEENT: Normocephalic and atraumatic. Sclerae anicteric. Oropharynx clear. NECK: Supple. CHEST: Clear to auscultation. CARDIOVASCULAR: Regular rate. ABDOMEN: Soft. Good bowel sounds. There is some mild degree of right lower quadrant tenderness which was mild without guarding or rebound. EXTREMITIES: Revealed no edema. LABORATORY AND DIAGNOSTIC DATA: Laboratory data noted. Ultrasound and CT scan was noted. ASSESSMENT: This patient presents with right lower quadrant abdominal pain and urinalysis consistent with urinary tract infection. The patient is being treated and she improved with respect to urinary tract infection. she has an asymptomatic small pericardial effusion as well as bilateral atelectasis RECOMMENDATIONS: Per above discussion and per orders written in the chart. no pulmonary intervention required Thank you for asking me to participate in the care of this patient. Reza Rodriguez M.D., MD Oct 01, 2019 15:27
[2019-10-01 16:00] VITALS: BP 161/87
[2019-10-01] MEDS: cefTRIAXone 2 GM in D5W 55 ML IVPB SCH (16:03)
[2019-10-01] MEDS ORDERED: Hydromorphone 0.5mg/0.5ml inj IVP SCH (18:57)
--- NOTE | 2019-10-01 19:13 | NUR ---
NURSE HAND-OFF: Important Events on Shift:[pain management, hydration, magnesium IVPB] Patient Status: [stable] Diet: jackeline Pending Orders: n/a Pending Results/Labs:n/a Pending MD notification:n/a Latest Vital Signs: Temperature 97.6 , Pulse 69 , B/P 161 /87 , Respiratory Rate 18 , O2 SAT 98 , Room Air, O2 Flow Rate . Vital Sign Comment: n/a Latest Pineda Fall Score: 35 Fall Risk: Medium Risk Safety Measures: Call light Within Reach, Bed Alarm , Side Rails Side Rails x2, Bed position Low and Locked. Fall Precautions: Yellow Socks Yellow Gown Door Sign Patient Fall Education Report given to Ijeoma NOEL. .
--- NOTE | 2019-10-01 19:21 | NUR ---
NURSE NOTES: Received patient and report from BERT Chávez. Patient a&ox4, in no acute distress. complaint of pain 10/10, pain medication given, will reassess. Noted shunt on left upper arm with thrill. IV site clean dry and intact with IV fluids running. Plan of care discussed.
[2019-10-01 19:50] VITALS: BP 141/79
[2019-10-01] MEDS: Zolpidem 5mg tab ORAL PRN (20:57)
--- NOTE | 2019-10-01 21:18 | General Progress Note ---
Assessment/Plan Assessment/Plan: Assessment - UTI - s/p distant past KRT - Large ovarian cyst (discrepancy between CT and US with respect to side) - RLQ pain likely due to UTI and Cyst Recommendations - PO as tolerated - abx - has appt for outpatient surgical cyst drainage in October Subjective Allergies: Coded Allergies: MORPHINE (Unverified Allergy, Unknown, 03/22/14) PNEUMOCOCCAL VACCINE (Unverified Allergy, Unknown, 09/29/19) SULFA (SULFONAMIDE ANTIBIOTICS) (Unverified Allergy, Unknown, 03/22/14) Uncoded Allergies: SULFA (Allergy, Unknown, 08/02/18) Subjective Feels OK still with some RLQ pain d/w patient re results Objective Last 24 Hour Vital Signs Date Time Temp Pulse Resp B/P (MAP) Pulse Ox O2 Delivery O2 Flow Rate FiO2 10/01/19 19:50 98.9 68 18 141/79 (99) 97 10/01/19 16:00 97.6 69 18 161/87 (111) 98 10/01/19 12:00 97.7 80 16 143/81 (101) 97 10/01/19 08:00 99.6 79 16 141/83 (102) 97 10/01/19 07:58 Room Air 10/01/19 04:07 98.9 78 17 140/82 (101) 97 10/01/19 00:00 98.9 79 18 143/87 (105) 97 Intake and Output 09/30/19 10/01/19 19:00 07:00 Intake Total 1500 ml Balance 1500 ml Intake Oral 600 ml IV Total 900 ml # Voids 3 Laboratory Tests 10/01/19 04:45: White Blood Count 12.2H, Red Blood Count 3.49L, Hemoglobin 10.8L, Hematocrit 32.7L, Mean Corpuscular Volume 94, Mean Corpuscular Hemoglobin 31.1H, Mean Corpuscular Hemoglobin Concent 33.2, Red Cell Distribution Width 11.7, Platelet Count 259, Mean Platelet Volume 6.7, Neutrophils (%) (Auto) 69.8, Lymphocytes (% ) (Auto) 21.1, Monocytes (%) (Auto) 8.1, Eosinophils (%) (Auto) 0.6, Basophils ( %) (Auto) 0.5, Sodium Level 139, Potassium Level 3.6, Chloride Level 102, Carbon Dioxide Level 27, Anion Gap 10, Blood Urea Nitrogen 13, Creatinine 1.0, Estimat Glomerular Filtration Rate 59.7, Glucose Level 108H, Hemoglobin A1c 6.4H , Uric Acid 6.3, Calcium Level 7.7L, Phosphorus Level 3.3, Magnesium Level 1.4L , Iron Level 67, Total Iron Binding Capacity 206L, Percent Iron Saturation 33, Unsaturated Iron Binding 139, Ferritin 78, Total Bilirubin 0.2, Gamma Glutamyl Transpeptidase 13, Aspartate Amino Transf (AST/SGOT) 11L, Alanine Aminotransferase (ALT/SGPT) 12, Alkaline Phosphatase 40L, C-Reactive Protein, Quantitative 0.9, Pro-B-Type Natriuretic Peptide 759H, Total Protein 7.5, Albumin 3.1L, Globulin 4.4, Albumin/Globulin Ratio 0.7L, Triglycerides Level 124 , Cholesterol Level 184, LDL Cholesterol 122H, HDL Cholesterol 41, Cholesterol/ HDL Ratio 4.5H, Vitamin B12 Level 324, Folate 6.1L, Thyroid Stimulating Hormone (TSH) 3.181 10/01/19 13:00: Urine Color Pale yellow, Urine Appearance Slightly cloudy, Urine pH 5, Urine Specific [place] 1.015, Urine Protein Negative, Urine Glucose (UA) 2+H, Urine Ketones Negative, Urine Blood 2+H, Urine Nitrite Negative, Urine Bilirubin 1+H, Urine Ictotest Negative, Urine Urobilinogen Normal, Urine Leukocyte Esterase 2+H , Urine RBC 0-2, Urine WBC 5-10H, Urine Squamous Epithelial Cells Few, Urine Bacteria Few Height (Feet): 5 Height (Inches): 2.00 Weight (Pounds): 166 Objective WDWN L woman NCAT supple CTA RR abd soft, obese, mild RLQ TTP no edema Min Arvizu MD Oct 01, 2019 21:18
[2019-10-01] MEDS: Metoclopramide 10mg/2ml Inj IVP PRN (21:34)
--- NOTE | 2019-10-01 22:17 | General Progress Note ---
Assessment/Plan Problem List: (1) Pyelonephritis ICD Codes: N12 - Tubulo-interstitial nephritis, not specified as acute or chronic SNOMED: 87092416 (2) Fever ICD Codes: R50.9 - Fever, unspecified SNOMED: 777330714 (3) Ovarian cyst, left ICD Codes: N83.202 - Unspecified ovarian cyst, left side SNOMED: 54337028 (4) Abdominal pain ICD Codes: R10.9 - Unspecified abdominal pain SNOMED: 31061000 (5) HTN (hypertension) ICD Codes: I10 - Essential (primary) hypertension SNOMED: 46816548 (6) UTI (lower urinary tract infection) ICD Codes: N39.0 - Urinary tract infection, site not specified SNOMED: 5508198 (7) MELI (acute kidney injury) ICD Codes: N17.9 - Acute kidney failure, unspecified SNOMED: 01056894, 3344004 (8) Hypokalemia ICD Codes: E87.6 - Hypokalemia SNOMED: 79813628 Status: progressing Assessment/Plan: abdominal pain is improving s/p kidney transplant afebrile no acute events ovarian cyst reviewed chart and labs Subjective ROS Limited/Unobtainable: Yes Allergies: Coded Allergies: MORPHINE (Unverified Allergy, Unknown, 03/22/14) PNEUMOCOCCAL VACCINE (Unverified Allergy, Unknown, 09/29/19) SULFA (SULFONAMIDE ANTIBIOTICS) (Unverified Allergy, Unknown, 03/22/14) Uncoded Allergies: SULFA (Allergy, Unknown, 08/02/18) Objective Last 24 Hour Vital Signs Date Time Temp Pulse Resp B/P (MAP) Pulse Ox O2 Delivery O2 Flow Rate FiO2 10/01/19 19:50 98.9 68 18 141/79 (99) 97 10/01/19 16:00 97.6 69 18 161/87 (111) 98 10/01/19 12:00 97.7 80 16 143/81 (101) 97 10/01/19 08:00 99.6 79 16 141/83 (102) 97 10/01/19 07:58 Room Air 10/01/19 04:07 98.9 78 17 140/82 (101) 97 10/01/19 00:00 98.9 79 18 143/87 (105) 97 Intake and Output 09/30/19 10/01/19 19:00 07:00 Intake Total 1500 ml Balance 1500 ml Intake Oral 600 ml IV Total 900 ml # Voids 3 Laboratory Tests 10/01/19 04:45: White Blood Count 12.2H, Red Blood Count 3.49L, Hemoglobin 10.8L, Hematocrit 32.7L, Mean Corpuscular Volume 94, Mean Corpuscular Hemoglobin 31.1H, Mean Corpuscular Hemoglobin Concent 33.2, Red Cell Distribution Width 11.7, Platelet Count 259, Mean Platelet Volume 6.7, Neutrophils (%) (Auto) 69.8, Lymphocytes (% ) (Auto) 21.1, Monocytes (%) (Auto) 8.1, Eosinophils (%) (Auto) 0.6, Basophils ( %) (Auto) 0.5, Sodium Level 139, Potassium Level 3.6, Chloride Level 102, Carbon Dioxide Level 27, Anion Gap 10, Blood Urea Nitrogen 13, Creatinine 1.0, Estimat Glomerular Filtration Rate 59.7, Glucose Level 108H, Hemoglobin A1c 6.4H , Uric Acid 6.3, Calcium Level 7.7L, Phosphorus Level 3.3, Magnesium Level 1.4L , Iron Level 67, Total Iron Binding Capacity 206L, Percent Iron Saturation 33, Unsaturated Iron Binding 139, Ferritin 78, Total Bilirubin 0.2, Gamma Glutamyl Transpeptidase 13, Aspartate Amino Transf (AST/SGOT) 11L, Alanine Aminotransferase (ALT/SGPT) 12, Alkaline Phosphatase 40L, C-Reactive Protein, Quantitative 0.9, Pro-B-Type Natriuretic Peptide 759H, Total Protein 7.5, Albumin 3.1L, Globulin 4.4, Albumin/Globulin Ratio 0.7L, Triglycerides Level 124 , Cholesterol Level 184, LDL Cholesterol 122H, HDL Cholesterol 41, Cholesterol/ HDL Ratio 4.5H, Vitamin B12 Level 324, Folate 6.1L, Thyroid Stimulating Hormone (TSH) 3.181 10/01/19 13:00: Urine Color Pale yellow, Urine Appearance Slightly cloudy, Urine pH 5, Urine Specific [place] 1.015, Urine Protein Negative, Urine Glucose (UA) 2+H, Urine Ketones Negative, Urine Blood 2+H, Urine Nitrite Negative, Urine Bilirubin 1+H, Urine Ictotest Negative, Urine Urobilinogen Normal, Urine Leukocyte Esterase 2+H , Urine RBC 0-2, Urine WBC 5-10H, Urine Squamous Epithelial Cells Few, Urine Bacteria Few Height (Feet): 5 Height (Inches): 2.00 Weight (Pounds): 166 Davie Marie MD Oct 01, 2019 22:17
[2019-10-02] VITALS: BP 154/86
[2019-10-02 04:00] VITALS: BP 138/85
[2019-10-02 05:48] LABS: BASOPHILS % (AUTO) 0.7 % (0.0-2.0); HEMATOCRIT 31.5 % (37.0-47.0); HEMOGLOBIN 10.5 G/DL (12.0-16.0); LYMPHOCYTES % (AUTO) 26.2 % (20.0-45.0); MEAN CORPUSCULAR VOLUME 93 FL (80-99); MONOCYTES % (AUTO) 8.2 % (1.0-10.0); PLATELET COUNT 258 K/UL (150-450); RED BLOOD COUNT 3.37 M/UL (4.20-5.40); RED CELL DISTRIBUTION WIDTH 11.6 % (11.6-14.8); WHITE BLOOD COUNT 12.7 K/UL (4.8-10.8)
[2019-10-02] MEDS: traMADol 50mg tab ORAL PRN (05:50)
[2019-10-02 05:59] LABS: ALANINE AMINOTRANSFERASE 15 U/L (12-78); ALBUMIN/GLOBULIN RATIO 0.7 (1.0-2.7); ALKALINE PHOSPHATASE 35 U/L (46-116); ANION GAP 6 mmol/L (5-15); ASPARTATE AMINO TRANSFERASE 11 U/L (15-37); BILIRUBIN,TOTAL 0.2 MG/DL (0.2-1.0); BLOOD UREA NITROGEN 13 mg/dL (7-18); CALCIUM 7.6 MG/DL (8.5-10.1); CARBON DIOXIDE 29 MMOL/L (21-32); CHLORIDE 104 MMOL/L (98-107); CREATININE 1.2 MG/DL (0.55-1.30); PHOSPHORUS 2.8 MG/DL (2.5-4.9); POTASSIUM 3.7 MMOL/L (3.5-5.1); SODIUM 139 MMOL/L (136-145)
--- NOTE | 2019-10-02 07:08 | NUR ---
NURSE HAND-OFF: Important Events on Shift:pain management, hydration Patient Status: stable Diet: AMBROCIO Pending Orders: none Pending Results/Labs:none Pending MD notification:none Latest Vital Signs: Temperature 98.2 , Pulse 74 , B/P 138 /85 , Respiratory Rate 15 , O2 SAT 96 , Room Air, O2 Flow Rate . Vital Sign Comment: none Latest Pineda Fall Score: 35 Fall Risk: Medium Risk Safety Measures: Call light Within Reach, Bed Alarm , Side Rails Side Rails x2, Bed position Low and Locked. Fall Precautions: Yellow Socks Yellow Gown Door Sign Patient Fall Education Report given to BERT Reilly.
--- NOTE | 2019-10-02 07:20 | NUR ---
NURSE NOTES: WALKING ROUNDS DONE WITH NIGHT RN. PATIENT ASLEEP IN BED.NO RESPIRATORY DISTRESS NOTED. BED IN LOW IN LOCKED POSITION. CALL LIGHT WITHIN REACH.
[2019-10-02 08:00] VITALS: BP 138/80
[2019-10-02] MEDS: Hydromorphone 0.5mg/0.5ml inj IVP PRN ×2 (08:32→12:28)
--- NOTE | 2019-10-02 08:33 | General Progress Note ---
Assessment/Plan Assessment/Plan: (1) Pelvic pain (2) Ovarian Cyst Patient will be continued on Dilaudid and Tramadol Rx for Tramadol and Narcan written in anticipation for discharge D/w Dr. Alejandro and he concurred. Subjective Date patient seen: Oct 02, 2019 Time patient seen: 07:45 - am Allergies: Coded Allergies: MORPHINE (Unverified Allergy, Unknown, 03/22/14) PNEUMOCOCCAL VACCINE (Unverified Allergy, Unknown, 09/29/19) SULFA (SULFONAMIDE ANTIBIOTICS) (Unverified Allergy, Unknown, 03/22/14) Uncoded Allergies: SULFA (Allergy, Unknown, 08/02/18) Subjective REVIEW OF SYSTEMS: HEENT: Denies headaches. Denies shortness of breath. Denies cough. CARDIOVASCULAR: Denies chest pain. Denies orthopnea. GASTROINTESTINAL: No vomiting. EXTREMITIES: Denies pain in lower extremities. NEUROLOGIC: Denies change in speech pattern. HISTORY OF PRESENT ILLNESS: This is a 48 y/o female seen on the med/surge floor of [facility] [place]. Pain has been stable on the Dilaudid and Tramadol. No new complaints at this time. Objective Last 24 Hour Vital Signs Date Time Temp Pulse Resp B/P (MAP) Pulse Ox O2 Delivery O2 Flow Rate FiO2 10/02/19 08:00 97.9 72 18 138/80 (99) 98 10/02/19 04:00 98.2 74 15 138/85 (102) 96 10/02/19 00:00 98.5 68 16 154/86 (108) 98 10/01/19 21:00 Room Air 10/01/19 19:50 98.9 68 18 141/79 (99) 97 10/01/19 16:00 97.6 69 18 161/87 (111) 98 10/01/19 12:00 97.7 80 16 143/81 (101) 97 Intake and Output 10/01/19 10/02/19 19:00 07:00 Intake Total 1130 ml Balance 1130 ml Intake Oral 580 ml IV Total 550 ml # Voids 1 Laboratory Tests 10/01/19 13:00: Urine Color Pale yellow, Urine Appearance Slightly cloudy, Urine pH 5, Urine Specific [place] 1.015, Urine Protein Negative, Urine Glucose (UA) 2+H, Urine Ketones Negative, Urine Blood 2+H, Urine Nitrite Negative, Urine Bilirubin 1+H, Urine Ictotest Negative, Urine Urobilinogen Normal, Urine Leukocyte Esterase 2+H , Urine RBC 0-2, Urine WBC 5-10H, Urine Squamous Epithelial Cells Few, Urine Bacteria Few 10/02/19 05:05: White Blood Count 12.7H, Red Blood Count 3.37L, Hemoglobin 10.5L, Hematocrit 31.5L, Mean Corpuscular Volume 93, Mean Corpuscular Hemoglobin 31.1H, Mean Corpuscular Hemoglobin Concent 33.3, Red Cell Distribution Width 11.6, Platelet Count 258, Mean Platelet Volume 6.8, Neutrophils (%) (Auto) 64.0, Lymphocytes (% ) (Auto) 26.2, Monocytes (%) (Auto) 8.2, Eosinophils (%) (Auto) 1.0, Basophils ( %) (Auto) 0.7, Erythrocyte Sedimentation Rate [Pending], Sodium Level 139, Potassium Level 3.7, Chloride Level 104, Carbon Dioxide Level 29, Anion Gap 6, Blood Urea Nitrogen 13, Creatinine 1.2, Estimat Glomerular Filtration Rate 48.4 , Glucose Level 112H, Calcium Level 7.6L, Phosphorus Level 2.8, Magnesium Level 1.8, Total Bilirubin 0.2, Aspartate Amino Transf (AST/SGOT) 11L, Alanine Aminotransferase (ALT/SGPT) 15, Alkaline Phosphatase 35L, Total Protein 7.3, Albumin 3.0L, Globulin 4.3, Albumin/Globulin Ratio 0.7L Height (Feet): 5 Height (Inches): 2.00 Weight (Pounds): 166 Objective LUNGS: Clear to auscultation. CARDIOVASCULAR: Regular rate and rhythm. GASTROINTESTINAL: Soft, nontender. EXTREMITIES: No edema. NEURO: No changes. Villa Shah Oct 02, 2019 08:33
[2019-10-02] MEDS: Calcitriol 0.25mcg Cap ORAL SCH (08:34)
[2019-10-02] MEDS: Mycophenolate 250mg cap ORAL SCH ×2 (08:35→17:36)
--- NOTE | 2019-10-02 08:55 | NUR ---
NURSE NOTES: NOTED DILAUDID GIVEN TO PATIENT NOT SCANNED BUT WITNESSED AND WASTE DONE WITH LULA (LUKAS). PLACED CALL TO PHARMACY. SPOKE TO [facility] TO MAKE AWARE.
--- NOTE | 2019-10-02 09:27 | Infectious Diseases Prog Note ---
Assessment/Plan Assessment/Plan IMPRESSION: Complicated UTI with Strep group B Status post kidney transplant. Right ovarian cyst. On immunosuppressive medications Hypertension. RECOMMENDATION: Change ceftriaxone to Amoxicillin Continue antibiotic X 4 days Subjective ROS Limited/Unobtainable: No Constitutional: Reports: no symptoms Respiratory: Reports: no symptoms Gastrointestinal/Abdominal: Reports: nausea, other - RLQ pain Allergies: Coded Allergies: MORPHINE (Unverified Allergy, Unknown, 03/22/14) PNEUMOCOCCAL VACCINE (Unverified Allergy, Unknown, 09/29/19) SULFA (SULFONAMIDE ANTIBIOTICS) (Unverified Allergy, Unknown, 03/22/14) Uncoded Allergies: SULFA (Allergy, Unknown, 08/02/18) Objective Last 24 Hour Vital Signs Date Time Temp Pulse Resp B/P (MAP) Pulse Ox O2 Delivery O2 Flow Rate FiO2 10/02/19 09:00 Room Air 10/02/19 08:00 97.9 72 18 138/80 (99) 98 10/02/19 04:00 98.2 74 15 138/85 (102) 96 10/02/19 00:00 98.5 68 16 154/86 (108) 98 10/01/19 21:00 Room Air 10/01/19 19:50 98.9 68 18 141/79 (99) 97 10/01/19 16:00 97.6 69 18 161/87 (111) 98 10/01/19 12:00 97.7 80 16 143/81 (101) 97 Height (Feet): 5 Height (Inches): 2.00 Weight (Pounds): 166 HEENT: mucous membranes moist Respiratory/Chest: lungs clear Cardiovascular: normal rate Abdomen: other - soft, mild RLQ pain Extremities: no edema Neurologic/Psychiatric: alert, oriented x 3, responsive Microbiology Date/Time Source Procedure Growth Status 09/30/19 00:00 Nasopharynx SARS-CoV-2 RdRp Gene Assay - Final Complete 09/29/19 22:30 Urine,Clean Catch Urine Culture - Final Strep Agalactiae Group B Complete Laboratory Tests Test 10/01/19 13:00 10/02/19 05:05 Urine Color Pale yellow Urine Appearance Slightly cloudy Urine pH 5 (4.5-8.0) Urine Specific [place] 1.015 (1.005-1.035) Urine Protein Negative (NEGATIVE) Urine Glucose (UA) 2+ (NEGATIVE) H Urine Ketones Negative (NEGATIVE) Urine Blood 2+ (NEGATIVE) H Urine Nitrite Negative (NEGATIVE) Urine Bilirubin 1+ (NEGATIVE) H Urine Ictotest Negative (NEGATIVE) Urine Urobilinogen Normal MG/DL (0.0-1.0) Urine Leukocyte Esterase 2+ (NEGATIVE) H Urine RBC 0-2 /HPF (0 - 2) Urine WBC 5-10 /HPF (0 - 2) H Urine Squamous Epithelial Cells Few /LPF (NONE/OCC) Urine Bacteria Few /HPF (NONE) White Blood Count 12.7 K/UL (4.8-10.8) H Red Blood Count 3.37 M/UL (4.20-5.40) L Hemoglobin 10.5 G/DL (12.0-16.0) L Hematocrit 31.5 % (37.0-47.0) L Mean Corpuscular Volume 93 FL (80-99) Mean Corpuscular Hemoglobin 31.1 PG (27.0-31.0) H Mean Corpuscular Hemoglobin Concent 33.3 G/DL (32.0-36.0) Red Cell Distribution Width 11.6 % (11.6-14.8) Platelet Count 258 K/UL (150-450) Mean Platelet Volume 6.8 FL (6.5-10.1) Neutrophils (%) (Auto) 64.0 % (45.0-75.0) Lymphocytes (%) (Auto) 26.2 % (20.0-45.0) Monocytes (%) (Auto) 8.2 % (1.0-10.0) Eosinophils (%) (Auto) 1.0 % (0.0-3.0) Basophils (%) (Auto) 0.7 % (0.0-2.0) Erythrocyte Sedimentation Rate 92 MM/HR (0-20) H Sodium Level 139 MMOL/L (136-145) Potassium Level 3.7 MMOL/L (3.5-5.1) Chloride Level 104 MMOL/L (98-107) Carbon Dioxide Level 29 MMOL/L (21-32) Anion Gap 6 mmol/L (5-15) Blood Urea Nitrogen 13 mg/dL (7-18) Creatinine 1.2 MG/DL (0.55-1.30) Estimat Glomerular Filtration Rate 48.4 mL/min (>60) Glucose Level 112 MG/DL (74-106) H Calcium Level 7.6 MG/DL (8.5-10.1) L Phosphorus Level 2.8 MG/DL (2.5-4.9) Magnesium Level 1.8 MG/DL (1.8-2.4) Total Bilirubin 0.2 MG/DL (0.2-1.0) Aspartate Amino Transf (AST/SGOT) 11 U/L (15-37) L Alanine Aminotransferase (ALT/SGPT) 15 U/L (12-78) Alkaline Phosphatase 35 U/L (46-116) L Total Protein 7.3 G/DL (6.4-8.2) Albumin 3.0 G/DL (3.4-5.0) L Globulin 4.3 g/dL Albumin/Globulin Ratio 0.7 (1.0-2.7) L Current Medications Medications (Trade) Dose Ordered Sig/Aroldo Route PRN Reason Start Time Stop Time Status Last Admin Dose Admin Acetaminophen (Tylenol) 500 mg Q6H PRN ORAL MILD/TEMP 09/30/19 03:00 10/30/19 02:59 10/02/19 05:43 Calcitriol (Rocatrol) 0.5 mcg DAILY ORAL 09/30/19 11:30 12/29/19 11:29 10/02/19 08:34 Calcium Carbonate (Calcium Carbonate) 650 mg THREE TIMES A DAY ORAL 10/02/19 09:00 12/31/19 08:59 Ceftriaxone Sodium 2 gm/ Dextrose 55 ml @ 110 mls/hr Q24H IVPB 09/30/19 16:00 10/07/19 15:59 10/01/19 16:03 Ergocalciferol (Drisdol) 50,000 intlu QWEEK ORAL 10/02/19 11:00 11/01/19 10:59 Folic Acid (Folate) 2 mg DAILY ORAL 10/01/19 09:00 10/31/19 08:59 10/02/19 08:35 Hydromorphone HCl (Dilaudid) 0.25 mg Q4H PRN IVP Severe Pain (Pain Scale 7-10) 10/01/19 12:52 10/08/19 12:51 10/02/19 08:32 Metoclopramide HCl (Reglan) 5 mg Q6H PRN IVP Nausea & Vomiting 09/30/19 16:00 10/30/19 15:59 10/01/19 21:34 Mycophenolate Mofetil (Cellcept) 750 mg TWICE A DAY ORAL 09/30/19 11:30 12/29/19 11:29 10/02/19 08:35 Pantoprazole (Protonix) 40 mg BID ORAL 10/01/19 18:00 10/30/19 11:59 10/02/19 08:35 Prednisone (predniSONE) 5 mg DAILY ORAL 09/30/19 11:30 10/30/19 11:29 10/02/19 08:35 Sodium Chloride 1,000 ml @ 50 mls/hr Q20H IV 10/01/19 12:45 10/31/19 12:44 10/01/19 23:00 Tacrolimus (Prograf) 0.5 mg BID@0900,2100 ORAL 09/30/19 09:00 12/29/19 08:59 10/02/19 08:34 Tramadol HCl (Ultram) 50 mg Q4H PRN ORAL Moderate Pain (Pain Scale 4-6) 10/01/19 10:15 10/08/19 10:14 10/02/19 05:50 Zolpidem Tartrate (Ambien) 5 mg BEDTIME PRN ORAL Insomnia 09/30/19 03:00 10/07/19 02:59 10/01/19 20:57 Avery Sherman MD Oct 02, 2019 09:27
[2019-10-02] MEDS: Calcium Carbonate 650mg Tab ORAL SCH ×3 (10:25→17:36)
--- NOTE | 2019-10-02 10:57 | Pulmonology Progress Note ---
Subjective ROS Limited/Unobtainable: No Interval Events: None new Constitutional: Reports: no symptoms HEENT: Repors: no symptoms Respiratory: Reports: no symptoms Gastrointestinal/Abdominal: Reports: nausea, other - RLQ pain Genitourinary: Reports: no symptoms Allergies: Coded Allergies: MORPHINE (Unverified Allergy, Unknown, 03/22/14) PNEUMOCOCCAL VACCINE (Unverified Allergy, Unknown, 09/29/19) SULFA (SULFONAMIDE ANTIBIOTICS) (Unverified Allergy, Unknown, 03/22/14) Uncoded Allergies: SULFA (Allergy, Unknown, 08/02/18) Objective Last 24 Hour Vital Signs Date Time Temp Pulse Resp B/P (MAP) Pulse Ox O2 Delivery O2 Flow Rate FiO2 10/02/19 09:02 97.9 10/02/19 09:00 Room Air 10/02/19 08:00 97.9 72 18 138/80 (99) 98 10/02/19 04:00 98.2 74 15 138/85 (102) 96 10/02/19 00:00 98.5 68 16 154/86 (108) 98 10/01/19 21:00 Room Air 10/01/19 19:50 98.9 68 18 141/79 (99) 97 10/01/19 16:00 97.6 69 18 161/87 (111) 98 10/01/19 12:00 97.7 80 16 143/81 (101) 97 Intake and Output 10/01/19 10/02/19 19:00 07:00 Intake Total 1130 ml Balance 1130 ml Intake Oral 580 ml IV Total 550 ml # Voids 1 General Appearance: no acute distress HEENT: normocephalic Respiratory: chest wall non-tender, lungs clear Cardiovascular: normal peripheral pulses Abdomen: normal bowel sounds Microbiology Date/Time Source Procedure Growth Status 09/30/19 00:00 Nasopharynx SARS-CoV-2 RdRp Gene Assay - Final Complete 09/29/19 22:30 Urine,Clean Catch Urine Culture - Final Strep Agalactiae Group B Complete Laboratory Tests 10/01/19 13:00: Urine Color Pale yellow, Urine Appearance Slightly cloudy, Urine pH 5, Urine Specific [place] 1.015, Urine Protein Negative, Urine Glucose (UA) 2+H, Urine Ketones Negative, Urine Blood 2+H, Urine Nitrite Negative, Urine Bilirubin 1+H, Urine Ictotest Negative, Urine Urobilinogen Normal, Urine Leukocyte Esterase 2+H , Urine RBC 0-2, Urine WBC 5-10H, Urine Squamous Epithelial Cells Few, Urine Bacteria Few 10/02/19 05:05: White Blood Count 12.7H, Red Blood Count 3.37L, Hemoglobin 10.5L, Hematocrit 31.5L, Mean Corpuscular Volume 93, Mean Corpuscular Hemoglobin 31.1H, Mean Corpuscular Hemoglobin Concent 33.3, Red Cell Distribution Width 11.6, Platelet Count 258, Mean Platelet Volume 6.8, Neutrophils (%) (Auto) 64.0, Lymphocytes (% ) (Auto) 26.2, Monocytes (%) (Auto) 8.2, Eosinophils (%) (Auto) 1.0, Basophils ( %) (Auto) 0.7, Erythrocyte Sedimentation Rate 92H, Sodium Level 139, Potassium Level 3.7, Chloride Level 104, Carbon Dioxide Level 29, Anion Gap 6, Blood Urea Nitrogen 13, Creatinine 1.2, Estimat Glomerular Filtration Rate 48.4, Glucose Level 112H, Calcium Level 7.6L, Phosphorus Level 2.8, Magnesium Level 1.8, Total Bilirubin 0.2, Aspartate Amino Transf (AST/SGOT) 11L, Alanine Aminotransferase (ALT/SGPT) 15, Alkaline Phosphatase 35L, Total Protein 7.3, Albumin 3.0L, Globulin 4.3, Albumin/Globulin Ratio 0.7L Current Medications Medications (Trade) Dose Ordered Sig/Aroldo Route PRN Reason Start Time Stop Time Status Last Admin Dose Admin Acetaminophen (Tylenol) 500 mg Q6H PRN ORAL MILD/TEMP 09/30/19 03:00 10/30/19 02:59 10/02/19 05:43 Amoxicillin (Amoxil) 500 mg EVERY 8 HOURS ORAL 10/02/19 14:00 10/09/19 13:59 Calcitriol (Rocatrol) 0.5 mcg DAILY ORAL 09/30/19 11:30 12/29/19 11:29 10/02/19 08:34 Calcium Carbonate (Calcium Carbonate) 650 mg THREE TIMES A DAY ORAL 10/02/19 09:00 12/31/19 08:59 10/02/19 10:25 Ergocalciferol (Drisdol) 50,000 intlu QWEEK ORAL 10/02/19 11:00 11/01/19 10:59 10/02/19 10:25 Folic Acid (Folate) 2 mg DAILY ORAL 10/01/19 09:00 10/31/19 08:59 10/02/19 08:35 Hydromorphone HCl (Dilaudid) 0.25 mg Q4H PRN IVP Severe Pain (Pain Scale 7-10) 10/01/19 12:52 10/08/19 12:51 10/02/19 08:32 Metoclopramide HCl (Reglan) 5 mg Q6H PRN IVP Nausea & Vomiting 09/30/19 16:00 10/30/19 15:59 10/01/19 21:34 Mycophenolate Mofetil (Cellcept) 750 mg TWICE A DAY ORAL 09/30/19 11:30 12/29/19 11:29 10/02/19 08:35 Pantoprazole (Protonix) 40 mg BID ORAL 10/01/19 18:00 10/30/19 11:59 10/02/19 08:35 Prednisone (predniSONE) 5 mg DAILY ORAL 09/30/19 11:30 10/30/19 11:29 10/02/19 08:35 Sodium Chloride 1,000 ml @ 50 mls/hr Q20H IV 10/01/19 12:45 10/31/19 12:44 10/01/19 23:00 Tacrolimus (Prograf) 0.5 mg BID@0900,2100 ORAL 09/30/19 09:00 12/29/19 08:59 10/02/19 08:34 Tramadol HCl (Ultram) 50 mg Q4H PRN ORAL Moderate Pain (Pain Scale 4-6) 10/01/19 10:15 10/08/19 10:14 10/02/19 05:50 Zolpidem Tartrate (Ambien) 5 mg BEDTIME PRN ORAL Insomnia 09/30/19 03:00 10/07/19 02:59 10/01/19 20:57 Assessment/Plan Assessment/Plan ASSESSMENT: This patient presents with right lower quadrant abdominal pain and urinalysis consistent with urinary tract infection. The patient is being treated and she improved with respect to urinary tract infection. she has an asymptomatic small pericardial effusion as well as bilateral atelectasis RECOMMENDATIONS: Per above discussion and per orders written in the chart. no pulmonary intervention required Thank you for asking me to participate in the care of this patient. Reza Rodriguez M.D., MD Oct 02, 2019 10:57
[2019-10-02] MEDS ORDERED: Vitamin D 50,000 units cap ORAL SCH (11:00)
[2019-10-02 12:00] VITALS: BP 153/83
--- NOTE | 2019-10-02 13:09 | Nephrology Progress Note ---
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 Medication list reviewed. Continue antibiotic per ID. Keep well-hydrated. On IV fluids Magnesium sulfate IV as needed Oral folic acid given Keep the blood pressure over 100 systolic and in check Monitor renal parameters and electrolytes Anemia work-up noted Continue antirejection medication Continue per consultants, antibiotics for UTI Per orders Subjective ROS Limited/Unobtainable: No Constitutional: Reports: malaise Objective Objective Last 24 Hour Vital Signs Date Time Temp Pulse Resp B/P (MAP) Pulse Ox O2 Delivery O2 Flow Rate FiO2 10/02/19 12:00 98.3 75 20 153/83 (106) 98 10/02/19 09:02 97.9 10/02/19 09:00 Room Air 10/02/19 08:00 97.9 72 18 138/80 (99) 98 10/02/19 04:00 98.2 74 15 138/85 (102) 96 10/02/19 00:00 98.5 68 16 154/86 (108) 98 10/01/19 21:00 Room Air 10/01/19 19:50 98.9 68 18 141/79 (99) 97 10/01/19 16:00 97.6 69 18 161/87 (111) 98 Intake and Output 10/01/19 10/02/19 19:00 07:00 Intake Total 1130 ml Balance 1130 ml Intake Oral 580 ml IV Total 550 ml # Voids 1 Current Medications Medications (Trade) Dose Ordered Sig/Aroldo Route PRN Reason Start Time Stop Time Status Last Admin Dose Admin Acetaminophen (Tylenol) 500 mg Q6H PRN ORAL MILD/TEMP 09/30/19 03:00 10/30/19 02:59 10/02/19 05:43 Amoxicillin (Amoxil) 500 mg EVERY 8 HOURS ORAL 10/02/19 14:00 10/09/19 13:59 Calcitriol (Rocatrol) 0.5 mcg DAILY ORAL 09/30/19 11:30 12/29/19 11:29 10/02/19 08:34 Calcium Carbonate (Calcium Carbonate) 650 mg THREE TIMES A DAY ORAL 10/02/19 09:00 12/31/19 08:59 10/02/19 10:25 Ergocalciferol (Drisdol) 50,000 intlu QWEEK ORAL 10/02/19 11:00 11/01/19 10:59 10/02/19 10:25 Folic Acid (Folate) 2 mg DAILY ORAL 10/01/19 09:00 10/31/19 08:59 10/02/19 08:35 Hydromorphone HCl (Dilaudid) 0.25 mg Q4H PRN IVP Severe Pain (Pain Scale 7-10) 10/01/19 12:52 10/08/19 12:51 10/02/19 12:28 Metoclopramide HCl (Reglan) 5 mg Q6H PRN IVP Nausea & Vomiting 09/30/19 16:00 10/30/19 15:59 10/01/19 21:34 Mycophenolate Mofetil (Cellcept) 750 mg TWICE A DAY ORAL 09/30/19 11:30 12/29/19 11:29 10/02/19 08:35 Pantoprazole (Protonix) 40 mg BID ORAL 10/01/19 18:00 10/30/19 11:59 10/02/19 08:35 Prednisone (predniSONE) 5 mg DAILY ORAL 09/30/19 11:30 10/30/19 11:29 10/02/19 08:35 Sodium Chloride 1,000 ml @ 50 mls/hr Q20H IV 10/01/19 12:45 10/31/19 12:44 10/01/19 23:00 Tacrolimus (Prograf) 0.5 mg BID@0900,2100 ORAL 09/30/19 09:00 12/29/19 08:59 10/02/19 08:34 Tramadol HCl (Ultram) 50 mg Q4H PRN ORAL Moderate Pain (Pain Scale 4-6) 10/01/19 10:15 10/08/19 10:14 10/02/19 05:50 Zolpidem Tartrate (Ambien) 5 mg BEDTIME PRN ORAL Insomnia 09/30/19 03:00 10/07/19 02:59 10/01/19 20:57 Laboratory Tests 10/02/19 05:05: White Blood Count 12.7H, Red Blood Count 3.37L, Hemoglobin 10.5L, Hematocrit 31.5L, Mean Corpuscular Volume 93, Mean Corpuscular Hemoglobin 31.1H, Mean Corpuscular Hemoglobin Concent 33.3, Red Cell Distribution Width 11.6, Platelet Count 258, Mean Platelet Volume 6.8, Neutrophils (%) (Auto) 64.0, Lymphocytes (% ) (Auto) 26.2, Monocytes (%) (Auto) 8.2, Eosinophils (%) (Auto) 1.0, Basophils ( %) (Auto) 0.7, Erythrocyte Sedimentation Rate 92H, Sodium Level 139, Potassium Level 3.7, Chloride Level 104, Carbon Dioxide Level 29, Anion Gap 6, Blood Urea Nitrogen 13, Creatinine 1.2, Estimat Glomerular Filtration Rate 48.4, Glucose Level 112H, Calcium Level 7.6L, Phosphorus Level 2.8, Magnesium Level 1.8, Total Bilirubin 0.2, Aspartate Amino Transf (AST/SGOT) 11L, Alanine Aminotransferase (ALT/SGPT) 15, Alkaline Phosphatase 35L, Total Protein 7.3, Albumin 3.0L, Globulin 4.3, Albumin/Globulin Ratio 0.7L Height (Feet): 5 Height (Inches): 2.00 Weight (Pounds): 166 General Appearance: no apparent distress Cardiovascular: normal rate Respiratory/Chest: lungs clear Martir Durbin MD Oct 02, 2019 13:09
--- NOTE | 2019-10-02 13:15 | NUR ---
CASE MANAGEMENT:REVIEW 10/02/19 SI:PYELONEPHRITIS. LEFT OVARIAN CYST 10.3CM UTI. HYPONATREMIA. ACUTE KIDNEY INJURY ~H/O KIDNEY TRANSPLANT 98.3 75 20 158/83 98% ON RA WBC 12.2 CA+7.7 MG 1.4 BNP 759 IS:AMOXIL PO TID CALCIUM CARBONATE PO TID DRISDOL PO QWK PROTONIX PO QD IV NS @50ML/HR PREDNISONE PO QD PROGRAF PO BID \: 3E MED SURG UNIT PLAN: CONTROL PAIN
[2019-10-02] MEDS: Metoclopramide 10mg/2ml Inj IVP PRN (13:20)
--- NOTE | 2019-10-02 13:34 | General Progress Note ---
Assessment/Plan Problem List: (1) Pyelonephritis ICD Codes: N12 - Tubulo-interstitial nephritis, not specified as acute or chronic SNOMED: 22443377 (2) Fever ICD Codes: R50.9 - Fever, unspecified SNOMED: 588020308 (3) Ovarian cyst, left ICD Codes: N83.202 - Unspecified ovarian cyst, left side SNOMED: 40421039 (4) Abdominal pain ICD Codes: R10.9 - Unspecified abdominal pain SNOMED: 34966941 (5) HTN (hypertension) ICD Codes: I10 - Essential (primary) hypertension SNOMED: 60964273 (6) UTI (lower urinary tract infection) ICD Codes: N39.0 - Urinary tract infection, site not specified SNOMED: 7826459 (7) MELI (acute kidney injury) ICD Codes: N17.9 - Acute kidney failure, unspecified SNOMED: 20189301, 2972500 (8) Hypokalemia ICD Codes: E87.6 - Hypokalemia SNOMED: 63046025 Assessment/Plan: abdominal pain is improving s/p kidney transplant ovarian cyst reviewed chart and labs kidney transplant afebrile vitals stable dc in am patient still has abdominal pain and says doesnt feel can go home due to pain will dc in am Subjective ROS Limited/Unobtainable: Yes Gastrointestinal/Abdominal: Reports: abdominal pain Allergies: Coded Allergies: MORPHINE (Unverified Allergy, Unknown, 03/22/14) PNEUMOCOCCAL VACCINE (Unverified Allergy, Unknown, 09/29/19) SULFA (SULFONAMIDE ANTIBIOTICS) (Unverified Allergy, Unknown, 03/22/14) Uncoded Allergies: SULFA (Allergy, Unknown, 08/02/18) Objective Last 24 Hour Vital Signs Date Time Temp Pulse Resp B/P (MAP) Pulse Ox O2 Delivery O2 Flow Rate FiO2 10/02/19 12:58 98.3 10/02/19 12:00 98.3 75 20 153/83 (106) 98 10/02/19 09:00 Room Air 10/02/19 08:00 97.9 72 18 138/80 (99) 98 10/02/19 04:00 98.2 74 15 138/85 (102) 96 10/02/19 00:00 98.5 68 16 154/86 (108) 98 10/01/19 21:00 Room Air 10/01/19 19:50 98.9 68 18 141/79 (99) 97 10/01/19 16:00 97.6 69 18 161/87 (111) 98 Intake and Output 10/01/19 10/02/19 19:00 07:00 Intake Total 1130 ml Balance 1130 ml Intake Oral 580 ml IV Total 550 ml # Voids 1 Laboratory Tests 10/02/19 05:05: White Blood Count 12.7H, Red Blood Count 3.37L, Hemoglobin 10.5L, Hematocrit 31.5L, Mean Corpuscular Volume 93, Mean Corpuscular Hemoglobin 31.1H, Mean Corpuscular Hemoglobin Concent 33.3, Red Cell Distribution Width 11.6, Platelet Count 258, Mean Platelet Volume 6.8, Neutrophils (%) (Auto) 64.0, Lymphocytes (% ) (Auto) 26.2, Monocytes (%) (Auto) 8.2, Eosinophils (%) (Auto) 1.0, Basophils ( %) (Auto) 0.7, Erythrocyte Sedimentation Rate 92H, Sodium Level 139, Potassium Level 3.7, Chloride Level 104, Carbon Dioxide Level 29, Anion Gap 6, Blood Urea Nitrogen 13, Creatinine 1.2, Estimat Glomerular Filtration Rate 48.4, Glucose Level 112H, Calcium Level 7.6L, Phosphorus Level 2.8, Magnesium Level 1.8, Total Bilirubin 0.2, Aspartate Amino Transf (AST/SGOT) 11L, Alanine Aminotransferase (ALT/SGPT) 15, Alkaline Phosphatase 35L, Total Protein 7.3, Albumin 3.0L, Globulin 4.3, Albumin/Globulin Ratio 0.7L Height (Feet): 5 Height (Inches): 2.00 Weight (Pounds): 166 Davie Marie MD Oct 02, 2019 13:34
--- NOTE | 2019-10-02 13:47 | NUR ---
*-* INSURANCE *-* UPDATED CLINICALS AND REVIEWS HAVE BEEN FAXED TO: [facility] Ref# [id number] ph#[phone] fax#[phone]
[2019-10-02 16:00] VITALS: BP 168/94
--- NOTE | 2019-10-02 16:00 | NUR ---
NURSE NOTES: NOTED 1600 BP 168/94 HR 64. PATIENT STATES SHE HAS NOT TAKING HER BP SINCE ADMITTED. PLACED CALL TO DR. FORTE TO RESUME HOME MEDS. AWAITING RETURN CALL. PATIENT KEPT INFORMED.
--- NOTE | 2019-10-02 17:11 | NUR ---
NURSE NOTES: RETURN CALL RECEIVED FROM DR. FORTE. PER MD REQUEST, FOR NURSE TO CONTACT DR. GUTIERREZ WITH HTN ISSUES. PLACED CALL TO DR. GUTIERREZ, VITALS REPORTED, NEW MED ORDERS RECEIVED. PATIENT AWARE.
[2019-10-02] MEDS ORDERED: HydrALAZINE 25mg tab ORAL PRN (17:15)
[2019-10-02] MEDS ORDERED: FAMOTIDINE20 MG ORAL (17:51)
[2019-10-02] MEDS ORDERED: BENAZEPRIL HCL40 MG ORAL (17:51)
[2019-10-02] MEDS ORDERED: PREDNISONE5 M3 PO (17:51)
[2019-10-02] MEDS ORDERED: SPIRONOLACTONE25 MG ORAL (17:51)
[2019-10-02] MEDS ORDERED: NIFEDIPINE ER60 M2 ORAL (17:51)
[2019-10-02] MEDS ORDERED: VITAMIN D250 MCG PO (17:51)
[2019-10-02] MEDS ORDERED: MYCOPHENOLATE250 MG PO (17:51)
--- NOTE | 2019-10-02 19:30 | NUR ---
NURSE NOTES: Receive a report from BERT Reilly. Round is done. Pt is awake and alert. No acute distress noted. Pain level is 4/10 and does not want to take pain medication at this time. Will continue to follow up. No nausea noted. AV shunt on LANETTE intact. Call light within reach. Will continue to monitor.
--- NOTE | 2019-10-02 19:33 | NUR ---
NURSE HAND-OFF REPORT: Latest Vital Signs: Temperature 98.9 , Pulse 70 , B/P 168 /94 , Respiratory Rate 18 , O2 SAT 98 , Room Air, O2 Flow Rate . Vital Sign Comment: REPORTED BP TO DR. FORTE AND DR. GUTIERREZ. BP MEDS RE-STARTED @ 1800 AND GIVEN. PATIENT ASYMPTOMATIC. EKG Rhythm: Rhythm change?: MD Notified?: - MD Response: Latest Pineda Fall Score: 35 Fall Risk: Medium Risk Safety Measures: Call light Within Reach, Bed Alarm , Side Rails Side Rails x2, Bed position Low and Locked. Fall Precautions: Door Sign Patient Fall Education Report given to THEA BISHOP RN
[2019-10-02 20:00] VITALS: BP 160/87
[2019-10-02] MEDS: Zolpidem 5mg tab ORAL PRN (21:09)
[2019-10-02] MEDS: Carvedilol 25mg Tab ORAL SCH (21:09)
--- NOTE | 2019-10-02 21:17 | General Progress Note ---
Assessment/Plan Assessment/Plan: Assessment - UTI - s/p distant past KRT - Large ovarian cyst (discrepancy between CT and US with respect to side) - RLQ pain likely due to UTI and Cyst Recommendations - PO as tolerated - abx - has appt for outpatient surgical cyst drainage in October Subjective Allergies: Coded Allergies: MORPHINE (Unverified Allergy, Unknown, 03/22/14) PNEUMOCOCCAL VACCINE (Unverified Allergy, Unknown, 09/29/19) SULFA (SULFONAMIDE ANTIBIOTICS) (Unverified Allergy, Unknown, 03/22/14) Uncoded Allergies: SULFA (Allergy, Unknown, 08/02/18) Subjective Feels OK still with some RLQ pain d/w patient re results Objective Last 24 Hour Vital Signs Date Time Temp Pulse Resp B/P (MAP) Pulse Ox O2 Delivery O2 Flow Rate FiO2 10/02/19 21:09 75 160/87 10/02/19 17:36 168/94 10/02/19 16:00 98.9 70 18 168/94 (118) 98 10/02/19 12:58 98.3 10/02/19 12:00 98.3 75 20 153/83 (106) 98 10/02/19 09:00 Room Air 10/02/19 08:00 97.9 72 18 138/80 (99) 98 10/02/19 04:00 98.2 74 15 138/85 (102) 96 10/02/19 00:00 98.5 68 16 154/86 (108) 98 Intake and Output 10/01/19 10/02/19 19:00 07:00 Intake Total 1130 ml Balance 1130 ml Intake Oral 580 ml IV Total 550 ml # Voids 1 Laboratory Tests 10/02/19 05:05: White Blood Count 12.7H, Red Blood Count 3.37L, Hemoglobin 10.5L, Hematocrit 31.5L, Mean Corpuscular Volume 93, Mean Corpuscular Hemoglobin 31.1H, Mean Corpuscular Hemoglobin Concent 33.3, Red Cell Distribution Width 11.6, Platelet Count 258, Mean Platelet Volume 6.8, Neutrophils (%) (Auto) 64.0, Lymphocytes (% ) (Auto) 26.2, Monocytes (%) (Auto) 8.2, Eosinophils (%) (Auto) 1.0, Basophils ( %) (Auto) 0.7, Erythrocyte Sedimentation Rate 92H, Sodium Level 139, Potassium Level 3.7, Chloride Level 104, Carbon Dioxide Level 29, Anion Gap 6, Blood Urea Nitrogen 13, Creatinine 1.2, Estimat Glomerular Filtration Rate 48.4, Glucose Level 112H, Calcium Level 7.6L, Phosphorus Level 2.8, Magnesium Level 1.8, Total Bilirubin 0.2, Aspartate Amino Transf (AST/SGOT) 11L, Alanine Aminotransferase (ALT/SGPT) 15, Alkaline Phosphatase 35L, Total Protein 7.3, Albumin 3.0L, Globulin 4.3, Albumin/Globulin Ratio 0.7L Height (Feet): 5 Height (Inches): 2.00 Weight (Pounds): 166 Objective WDWN L woman NCAT supple CTA RR abd soft, obese, mild RLQ TTP no edema Min Arvizu MD Oct 02, 2019 21:16
--- NOTE | 2019-10-02 21:30 | NUR ---
NURSE NOTES: Pain level is tolerating. Will continue to monitor. Explain for ATB change from IV form to oral medication.
[2019-10-03] VITALS: BP 127/72
[2019-10-03] MEDS: traMADol 50mg tab ORAL PRN (00:15)
[2019-10-03 05:56] VITALS: BP 138/82
--- NOTE | 2019-10-03 06:00 | NUR ---
NURSE NOTES: Pain got controlled after taking prn Tramodol 1t po overnight once time. No nausea noted. Will continue to monitor.
--- NOTE | 2019-10-03 07:15 | NUR ---
NURSE NOTES: WALKING ROUNDS DONE WITH NIGHT RN. PATIENT AWAKE IN BED. DENIES RIGHT FLANK PAIN AT THIS TIME. NO FLATUS, NO BM. PT. REQUESTING PO PAIN MED THAN IV DILAUDID. VSS. AFEBRILE. QUESTIONS ANSWERED AND NEEDS MET AT THIS TIME. DISCUSSED PLAN OF CARE FOR THE DAY, VERBALIZED UNDERSTANDING. BED IN LOW AND LOCKED POSITION, CALL LIGHT WITHIN REACH.
--- NOTE | 2019-10-03 07:30 | NUR ---
NURSE HAND-OFF: Important Events on Shift:[RLQ pain tolerating] Patient Status: [] Diet: [] Pending Orders: [] Pending Results/Labs:[] Pending MD notification:[] Latest Vital Signs: Temperature 97.9 , Pulse 72 , B/P 138 /82 , Respiratory Rate 18 , O2 SAT 96 , Room Air, O2 Flow Rate . Vital Sign Comment: [] Latest Pineda Fall Score: 35 Fall Risk: Medium Risk Safety Measures: Call light Within Reach, Bed Alarm , Side Rails Side Rails x2, Bed position Low and Locked. Fall Precautions: Door Sign Patient Fall Education Report given to [BERT Reilly]. Round is done. Pt had one time oral pain medication and controlled.
--- NOTE | 2019-10-03 07:48 | General Progress Note ---
Assessment/Plan Assessment/Plan: (1) Pelvic pain (2) Ovarian Cyst Patient will be continued on Dilaudid and Tramadol D/w Dr. Alejandro and he concurred. Subjective Date patient seen: Oct 03, 2019 Time patient seen: 07:00 - am Allergies: Coded Allergies: MORPHINE (Unverified Allergy, Unknown, 03/22/14) PNEUMOCOCCAL VACCINE (Unverified Allergy, Unknown, 09/29/19) SULFA (SULFONAMIDE ANTIBIOTICS) (Unverified Allergy, Unknown, 03/22/14) Uncoded Allergies: SULFA (Allergy, Unknown, 08/02/18) Subjective REVIEW OF SYSTEMS: HEENT: Denies headaches. Denies shortness of breath. Denies cough. CARDIOVASCULAR: Denies chest pain. Denies orthopnea. GASTROINTESTINAL: No vomiting. EXTREMITIES: Denies pain in lower extremities. NEUROLOGIC: Denies change in speech pattern. HISTORY OF PRESENT ILLNESS: This is a 48 y/o female seen on the med/surge floor of [facility] [place]. Pt reports pain has been tolerated on the Tramadol and is looking forward to going home as per ballaster. Objective Last 24 Hour Vital Signs Date Time Temp Pulse Resp B/P (MAP) Pulse Ox O2 Delivery O2 Flow Rate FiO2 10/03/19 05:56 97.9 72 18 138/82 (100) 96 10/03/19 00:00 98.1 72 18 127/72 (90) 98 10/02/19 21:09 75 160/87 10/02/19 21:00 Room Air 10/02/19 20:00 98.8 75 18 160/87 (111) 99 10/02/19 17:36 168/94 10/02/19 16:00 98.9 70 18 168/94 (118) 98 10/02/19 12:58 98.3 10/02/19 12:00 98.3 75 20 153/83 (106) 98 10/02/19 09:00 Room Air 10/02/19 08:00 97.9 72 18 138/80 (99) 98 Intake and Output 10/02/19 10/03/19 19:00 07:00 Intake Total 1400 ml 700 ml Balance 1400 ml 700 ml Intake Oral 800 ml 200 ml IV Total 600 ml 500 ml # Voids 3 Height (Feet): 5 Height (Inches): 2.00 Weight (Pounds): 166 Objective LUNGS: Clear to auscultation. CARDIOVASCULAR: Regular rate and rhythm. GASTROINTESTINAL: Soft, nontender. EXTREMITIES: No edema. NEURO: No changes. Villa Shah Oct 03, 2019 07:48
[2019-10-03 08:00] VITALS: BP 133/70
[2019-10-03] MEDS: Carvedilol 25mg Tab ORAL SCH (09:12)
[2019-10-03] MEDS: Calcitriol 0.25mcg Cap ORAL SCH (09:12)
[2019-10-03] MEDS: Calcium Carbonate 650mg Tab ORAL SCH ×2 (09:12→13:33)
--- NOTE | 2019-10-03 09:32 | NUR ---
NURSE NOTES: Spoke to regarding patient. Per : 1. Cleared to discharge to home, 2. Prescription per [facility] Pulido, 3. Follow up with PCP and Kidney MD in 1 week. Order noted and carried out.
--- NOTE | 2019-10-03 10:25 | Pulmonology Progress Note ---
Subjective ROS Limited/Unobtainable: Yes Interval Events: None new Constitutional: Reports: no symptoms HEENT: Repors: no symptoms Respiratory: Reports: no symptoms Gastrointestinal/Abdominal: Reports: nausea, other - RLQ pain Genitourinary: Reports: no symptoms Allergies: Coded Allergies: MORPHINE (Unverified Allergy, Unknown, 03/22/14) PNEUMOCOCCAL VACCINE (Unverified Allergy, Unknown, 09/29/19) SULFA (SULFONAMIDE ANTIBIOTICS) (Unverified Allergy, Unknown, 03/22/14) Uncoded Allergies: SULFA (Allergy, Unknown, 08/02/18) Objective Last 24 Hour Vital Signs Date Time Temp Pulse Resp B/P (MAP) Pulse Ox O2 Delivery O2 Flow Rate FiO2 10/03/19 09:12 74 133/70 10/03/19 08:00 98.3 74 20 133/70 (91) 98 10/03/19 05:56 97.9 72 18 138/82 (100) 96 10/03/19 00:00 98.1 72 18 127/72 (90) 98 10/02/19 21:09 75 160/87 10/02/19 21:00 Room Air 10/02/19 20:00 98.8 75 18 160/87 (111) 99 10/02/19 17:36 168/94 10/02/19 16:00 98.9 70 18 168/94 (118) 98 10/02/19 12:58 98.3 10/02/19 12:00 98.3 75 20 153/83 (106) 98 Intake and Output 10/02/19 10/03/19 19:00 07:00 Intake Total 1400 ml 700 ml Balance 1400 ml 700 ml Intake Oral 800 ml 200 ml IV Total 600 ml 500 ml # Voids 3 General Appearance: no acute distress HEENT: normocephalic Respiratory: chest wall non-tender, lungs clear Cardiovascular: normal peripheral pulses Abdomen: normal bowel sounds Current Medications Medications (Trade) Dose Ordered Sig/Aroldo Route PRN Reason Start Time Stop Time Status Last Admin Dose Admin Acetaminophen (Tylenol) 500 mg Q6H PRN ORAL MILD/TEMP 09/30/19 03:00 10/30/19 02:59 10/02/19 05:43 Amoxicillin (Amoxil) 500 mg EVERY 8 HOURS ORAL 10/02/19 14:00 10/09/19 13:59 10/03/19 06:00 Calcitriol (Rocatrol) 0.5 mcg DAILY ORAL 09/30/19 11:30 12/29/19 11:29 10/03/19 09:12 Calcium Carbonate (Calcium Carbonate) 650 mg THREE TIMES A DAY ORAL 10/02/19 09:00 12/31/19 08:59 10/03/19 09:12 Carvedilol (Coreg) 25 mg EVERY 12 HOURS ORAL 10/02/19 21:00 11/01/19 20:59 10/03/19 09:12 Ergocalciferol (Drisdol) 50,000 intlu QWEEK ORAL 10/02/19 11:00 11/01/19 10:59 10/02/19 10:25 Folic Acid (Folate) 2 mg DAILY ORAL 10/01/19 09:00 10/31/19 08:59 10/03/19 09:12 Hydralazine HCl (Apresoline) 25 mg Q4H PRN ORAL For High Blood Pressure 10/02/19 17:15 12/31/19 17:14 10/02/19 17:36 Hydromorphone HCl (Dilaudid) 0.25 mg Q4H PRN IVP Severe Pain (Pain Scale 7-10) 10/01/19 12:52 10/08/19 12:51 10/02/19 12:28 Metoclopramide HCl (Reglan) 5 mg Q6H PRN IVP Nausea & Vomiting 09/30/19 16:00 10/30/19 15:59 10/02/19 13:20 Mycophenolate Mofetil (Cellcept) 750 mg TWICE A DAY ORAL 09/30/19 11:30 12/29/19 11:29 10/02/19 17:36 Pantoprazole (Protonix) 40 mg BID ORAL 10/01/19 18:00 10/30/19 11:59 10/03/19 09:12 Prednisone (predniSONE) 5 mg DAILY ORAL 09/30/19 11:30 10/30/19 11:29 10/03/19 09:11 Sodium Chloride 1,000 ml @ 50 mls/hr Q20H IV 10/01/19 12:45 10/31/19 12:44 10/02/19 21:21 Sorbitol (sorbitoL) 45 ml ONCE ORAL 10/03/19 11:00 11/02/19 10:59 Tacrolimus (Prograf) 0.5 mg BID@0900,2100 ORAL 09/30/19 09:00 12/29/19 08:59 10/03/19 09:11 Tramadol HCl (Ultram) 50 mg Q4H PRN ORAL Moderate Pain (Pain Scale 4-6) 10/01/19 10:15 10/08/19 10:14 10/03/19 00:15 Zolpidem Tartrate (Ambien) 5 mg BEDTIME PRN ORAL Insomnia 09/30/19 03:00 10/07/19 02:59 10/02/19 21:09 Assessment/Plan Assessment/Plan ASSESSMENT: This patient presents with right lower quadrant abdominal pain and urinalysis consistent with urinary tract infection. The patient is being treated and she improved with respect to urinary tract infection. she has an asymptomatic small pericardial effusion as well as bilateral atelectasis RECOMMENDATIONS: Per above discussion and per orders written in the chart. no pulmonary intervention required Thank you for asking me to participate in the care of this patient. Reza Rodriguez M.D., MD Oct 03, 2019 10:25
[2019-10-03] MEDS: Mycophenolate 250mg cap ORAL SCH (10:42)
[2019-10-03] MEDS ORDERED: Sorbitol Solution UD 30ml ORAL SCH (11:00)
[2019-10-03 12:00] VITALS: BP 133/74
--- NOTE | 2019-10-03 13:12 | Nephrology Progress Note ---
Assessment/Plan Problem List: (1) MELI (acute kidney injury) (2) UTI (lower urinary tract infection) (3) Abdominal pain (4) Hyponatremia (5) Hypokalemia (6) Elevated hemoglobin A1c Assessment MELI, presents with creatinine of 1.6, now normalized Anemia Previous kidney transplant, cadaveric, on antirejection medication Presents with abdominal pain UTI Left ovarian cyst History of hypertension, at this point the patient has low blood pressure Right adrenal mass on CT History of hep C Plan October 02: No chemistry panel drawn today. Med list reviewed. Patient receiving antibiotics for UTI/pyelonephritis. Stable from renal standpoint of view. If in-house will check renal parameters tomorrow. October 01: Renal parameters stable. Medication list reviewed. Continue antibiotic per ID. Keep well-hydrated. On IV fluids Magnesium sulfate IV as needed Oral folic acid given Keep the blood pressure over 100 systolic and in check Monitor renal parameters and electrolytes Anemia work-up noted Continue antirejection medication Continue per consultants, antibiotics for UTI Per orders Subjective ROS Limited/Unobtainable: No Objective Objective Last 24 Hour Vital Signs Date Time Temp Pulse Resp B/P (MAP) Pulse Ox O2 Delivery O2 Flow Rate FiO2 10/03/19 12:00 99.0 67 19 133/74 (93) 98 10/03/19 09:12 74 133/70 10/03/19 09:00 Room Air 10/03/19 08:00 98.3 74 20 133/70 (91) 98 10/03/19 05:56 97.9 72 18 138/82 (100) 96 10/03/19 00:00 98.1 72 18 127/72 (90) 98 10/02/19 21:09 75 160/87 10/02/19 21:00 Room Air 10/02/19 20:00 98.8 75 18 160/87 (111) 99 10/02/19 17:36 168/94 10/02/19 16:00 98.9 70 18 168/94 (118) 98 Intake and Output 10/02/19 10/03/19 19:00 07:00 Intake Total 1400 ml 700 ml Balance 1400 ml 700 ml Intake Oral 800 ml 200 ml IV Total 600 ml 500 ml # Voids 3 No blood work drawn today Height (Feet): 5 Height (Inches): 2.00 Weight (Pounds): 166 General Appearance: no apparent distress Cardiovascular: normal rate Respiratory/Chest: lungs clear Objective No change Martir Durbin MD Oct 03, 2019 13:12
[2019-10-03] MEDS ORDERED: TRAMADOL HCL50 MG ORAL (14:07)
[2019-10-03] MEDS ORDERED: NARCAN4 MG NS (14:08)
[2019-10-03] MEDS ORDERED: AMOXICILLI200 MG/5 M PO (14:09)
[2019-10-03] MEDS ORDERED: AMOX TR-K CLV1 EAC1 ORAL (14:10)
--- NOTE | 2019-10-03 15:00 | NUR ---
NURSE NOTES: PATIENT READY FOR DISCHARGE. PRESCRIPTION FILLED, BELONGINGS ACCOUNTED FOR. DISCHARGE INSTRUCTIONS REVIEWED AND EXPLAINED TO PATIENT WITH PT. EDUCATION. VERBALIZED UNDERSTANDING. PLACED CALL TO [employer]. TRINH THAT [employer] NOT AVAILABLE IN THIS AREA AT THIS TIME BUT WILL NOTIFY ANOTHER COMPANY TO TOOL CRIB LEAD PATIENT. PATIENT AWARE.
--- NOTE | 2019-10-03 16:11 | NUR ---
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 [employer] VOUCHER GIVEN TO EMAIL MANAGER. INSTRUCTED PATIENT AGAIN TO F/U WITH PCP/OB/GRN/ RENAL MD IN ONE WEEK. ACKNOWLEDGED UNDERSTANDING.
--- NOTE | 2019-10-03 17:30 | General Progress Note ---
Assessment/Plan Assessment/Plan: Assessment - UTI - s/p distant past KRT - Large ovarian cyst (discrepancy between CT and US with respect to side) - RLQ pain likely due to UTI and Cyst Recommendations - PO as tolerated - abx - has appt for outpatient surgical cyst drainage in October - d/c planning Subjective Allergies: Coded Allergies: MORPHINE (Unverified Allergy, Unknown, 03/22/14) PNEUMOCOCCAL VACCINE (Unverified Allergy, Unknown, 09/29/19) SULFA (SULFONAMIDE ANTIBIOTICS) (Unverified Allergy, Unknown, 03/22/14) Uncoded Allergies: SULFA (Allergy, Unknown, 08/02/18) Subjective Seen this am Feels OK RLQ pain much better d/w patient re results Objective Last 24 Hour Vital Signs Date Time Temp Pulse Resp B/P (MAP) Pulse Ox O2 Delivery O2 Flow Rate FiO2 10/03/19 12:00 99.0 67 19 133/74 (93) 98 10/03/19 09:12 74 133/70 10/03/19 09:00 Room Air 10/03/19 08:00 98.3 74 20 133/70 (91) 98 10/03/19 05:56 97.9 72 18 138/82 (100) 96 10/03/19 00:00 98.1 72 18 127/72 (90) 98 10/02/19 21:09 75 160/87 10/02/19 21:00 Room Air 10/02/19 20:00 98.8 75 18 160/87 (111) 99 10/02/19 17:36 168/94 Intake and Output 10/02/19 10/03/19 19:00 07:00 Intake Total 1400 ml 700 ml Balance 1400 ml 700 ml Intake Oral 800 ml 200 ml IV Total 600 ml 500 ml # Voids 3 Height (Feet): 5 Height (Inches): 2.00 Weight (Pounds): 166 Objective WDWN L woman NCAT supple CTA RR abd soft, obese, mild RLQ TTP no edema Min Arvizu MD Oct 03, 2019 17:30
--- NOTE | 2019-10-04 14:23 | Discharge Summary ---
Discharge Summary Discharge Summary _ DATE OF ADMISSION: 09/29/2019 DATE OF DISCHARGE: 10/03/2019 DISCHARGED BY: Dr. Marie REASON FOR ADMISSION: [] 48 years old female with past medical history of right renal transplant in 2004, hypertension, anxiety, right ovarian cyst, resented with complaint of right lower quadrant abdominal pain for the 7-day. Pain became worse for the last 3 days and radiated to the right flank. She reported nausea and decreased appetite. No fever or chills. No vomiting or diarrhea. Patient denied melena hematochezia hematuria. Patient had bowel movement earlier that day. Patient had last menstrual. Last month which is irregular given that she is she has IUD. Patient still making urine. Upon evaluation vital signs were stable. Laboratory work-up revealed leukocytosis WBC 14.6 stable hemoglobin hematocrit. BUN 20, creatinine 1.6. Glucose 199. Urinalysis revealed pyuria and many bacteria. CT of the abdomen pelvis revealed enlarging indeterminate 10.3 cm right adnexal cystic structure , can be further characterized with pelvic ultrasound, Pelvic/transvaginal ultrasound demonstrated no evidence of ovarian torsion. Simple appearing left ovarian cyst. Normal blood flow. No free fluid. Emergency department patient received a liter of fluid analgesic empiric antibiotic pancultured and admitted for further management. CONSULTANTS: pulmonary Dr. Interiano ID specialist Dr. Avery Eldridge GI specialist Dr. Arvizu manager reliability Dr. Durbin pain specialist Dr. Alejandro [facility]SE: [] Patient admitted to medical surgical floor. Patient started on empiric antibiotics. Urine culture revealed strep group B. Rapid COVID-19 19 was negative. Infectious disease specialist recommended continue antibiotics for additional 4 days upon discharge. Marketing Pr Intern closely followed. Antirejection medication continued. Renal parameters electrolytes were closely monitored patient was well hydrated. Electrolytes corrected as needed. Prior to discharge BUN BUN 13 creatinine 1.2. Acute kidney injury resolved. Anemia work-up was consistent with anemia of chronic disease. Also noted low folate level. Patient started on oral folic acid replacement. Hemoglobin hematocrit were closely monitored with goal to keep hemoglobin above 7 prior to discharge hemoglobin 10.5 hematocrit 21.5. Pain management was addressed as per pain specialist recommendation. Per GI specialist right lower quadrant pain was most likely due to UTI and ovarian cyst noted discrepancy between CT scan and ultrasound results with respect to side. Patient has outpatient schedule patient has a scheduled appointment for outpatient surgical cyst drainage in October. FINAL DIAGNOSES: Complicated UTI with Strep group B Status post right kidney transplant On immunosuppressive medication Large ovarian cyst MELI -resolved Hyponatremia Hypokalemia History of hypertension RLQ abdominal pain due to UTI and cyst Anemia DISCHARGE MEDICATIONS: See Medication Reconciliation list. DISCHARGE INSTRUCTIONS: Patient was discharged home. Follow-up with a primary care provider in 1 week. Follow-up with a scheduled surgical cyst drainage I have been assigned to dictate discharge summary for this account. I was not involved in the patient's management. Sendy Avilez NP Oct 04, 2019 14:23
== END 2019-10-03 16:11 | disposition home or self-care (01) | DRG 463 ==
LOC: EDBD 21:41 → EMR 22:22 → 3E 22:50 → EDBEDREQ 23:07
DX: N39.0 Urinary tract infection, site not specified (principal); B95.1 Streptococcus, group B, as the cause of diseases classified elsewhere; N17.9 Acute kidney failure, unspecified; N83.201 Unspecified ovarian cyst, right side; E87.1 Hypo-osmolality and hyponatremia; Z94.0 Kidney transplant status; E87.6 Hypokalemia; J98.11 Atelectasis; I31.3 Pericardial effusion (noninflammatory); Z79.899 Other long term (current) drug therapy; I10 Essential (primary) hypertension; D64.9 Anemia, unspecified; Z88.6 Allergy status to analgesic agent; Z88.2 Allergy status to sulfonamides; Z88.7 Allergy status to serum and vaccine
CPT/HCPCS: 36415; 74176; 76830; 76856; 80053; 80061; 81001; 81003; 81025; 82607; 82728; 82746; 82977; 83036; 83540; 83550; 83690; 83735; 83880; 84100; 84300; 84443; 84550; 85025; 85610; 85651; 85730; 86140; 87086; 96361; 96365; 96375; 99285; J2405; J2765; J7030; U0002

== ENCOUNTER 2019-11-12 11:18 | Emergency (ER) | payer MEDICAID ==
[~2019-11-12] VITALS: Ht 160 cm; Wt 65.8 kg
[~2019-11-12 11:18] MED LIST changes: +ADALAT10 MG ORAL; +AMOX TR-K CLV1 EAC1 ORAL; +AMOXICILLI200 MG/5 M PO; +BENAZEPRIL HCL20 MG ORAL; +BENAZEPRIL HCL40 MG ORAL; +CALCITRIOL1 MCG/1 ML IV; +FAMOTIDINE20 MG ORAL; +MAGNESIUM100 MG PO; +MYCOPHENOLATE250 MG PO; +NARCAN4 MG NS; +NIFEDIPINE ER60 M2 ORAL; +PREDNISONE5 M3 PO; +PREDNISONE5 M4 PO; +SPIRONOLACTONE100 MG ORAL; +SPIRONOLACTONE25 MG ORAL; +TRAMADOL HCL50 MG ORAL; +VITAMIN D250 MCG PO
--- NOTE | 2019-11-12 11:29 | Emergency Room Report ---
History of Present Illness General Chief Complaint: Abdominal Pain Source: Patient, EMS Present Illness HPI 49-year-old female history of renal transplant history of end-stage renal disease, hypertension hyperlipidemia, diabetes, also with some form of cyst versus tumor in the abdomen that is scheduled for removal on 11/13/2019, presents with acute on chronic abdominal pain that has been ongoing for 2 to 3 months, patient endorses sharp lower abdominal pain no aggravating relieving factors severity is severe, constant she endorses nausea no vomiting, no diarrhea no fevers no chills no chest pain patient presents for evaluation and treatment Allergies: Coded Allergies: MORPHINE (Unverified Allergy, Unknown, 03/22/14) PNEUMOCOCCAL VACCINE (Unverified Allergy, Unknown, 09/29/19) SULFA (SULFONAMIDE ANTIBIOTICS) (Unverified Allergy, Unknown, 03/22/14) Uncoded Allergies: SULFA (Allergy, Unknown, 08/02/18) COVID-19 Screening Contact w/high risk pt: No Experienced COVID-19 symptoms?: No COVID-19 Testing performed DISEASE MANAGEMENT NURSE: No Patient History Past Medical History: see triage record Last Menstrual Period: na Reviewed Nursing Documentation: PMH: Agreed; PSxH: Agreed Nursing Documentation-PMH Past Medical History: No History, Except For Hx Cardiac Problems: Yes - "stomach tumor" Hx Hypertension: Yes Hx Cancer: No Hx Gastrointestinal Problems: Yes - Hepatitis C Hx Dialysis: No - hx of hd, kidney transplant, renal failure, Hx Neurological Problems: No Review of Systems All Other Systems: negative except mentioned in HPI Physical Exam Vital Signs Date Time Temp Pulse Resp B/P (MAP) Pulse Ox O2 Delivery O2 Flow Rate FiO2 11/12/19 11:14 97.0 92 18 120/70 (87) 97 Room Air Sp02 EP Interpretation: reviewed, normal General Appearance: alert, mild distress Head: normocephalic, atraumatic Eyes: bilateral eye PERRL, bilateral eye EOMI ENT: uvula midline, moist mucus membranes Neck: supple, thyroid normal, supple/symm/no masses Respiratory: lungs clear, no respiratory distress, no retraction, no accessory muscle use Cardiovascular #1: normal peripheral pulses, regular rate, rhythm, no edema, no gallop, no murmur Gastrointestinal: soft, no guarding, no rebound, tenderness - Midabdominal, right lower quadrant, left lower quadrant Musculoskeletal: normal inspection Neurologic: alert, oriented x3 Psychiatric: mood/affect normal Skin: no rash, warm/dry Medical Decision Making Diagnostic Impression: Primary Impression: Abdominal pain Qualified Codes: R10.30 - Lower abdominal pain, unspecified Additional Impression: UTI (lower urinary tract infection) ER Course 49-year-old female with known right lower quadrant cyst that is pending surgical removal by [facility] patient states similar pain that she had in the past, patient given 2 mg of hydromorphone, patient reports that her pain is well controlled. Spoke with Dr. Lo, aware of the patient. Spoke with patient once pain well controlled, joint decision making made with patient to pursue outpatient care, and she will go to [facility] 11/12 to have her cyst removed Laboratory Tests Test 11/12/19 11:40 11/12/19 14:47 White Blood Count 16.4 K/UL (4.8-10.8) H Red Blood Count 3.87 M/UL (4.20-5.40) L Hemoglobin 11.9 G/DL (12.0-16.0) L Hematocrit 34.3 % (37.0-47.0) L Mean Corpuscular Volume 88 FL (80-99) Mean Corpuscular Hemoglobin 30.8 PG (27.0-31.0) Mean Corpuscular Hemoglobin Concent 34.8 G/DL (32.0-36.0) Red Cell Distribution Width 11.5 % (11.6-14.8) L Platelet Count 369 K/UL (150-450) Mean Platelet Volume 5.5 FL (6.5-10.1) L Neutrophils (%) (Auto) 80.5 % (45.0-75.0) H Lymphocytes (%) (Auto) 12.3 % (20.0-45.0) L Monocytes (%) (Auto) 5.8 % (1.0-10.0) Eosinophils (%) (Auto) 0.7 % (0.0-3.0) Basophils (%) (Auto) 0.6 % (0.0-2.0) Prothrombin Time 11.2 SEC (9.30-11.50) Prothrombin Time INR 1.0 (0.9-1.1) Activated Partial Thromboplast Time 29 SEC (23-33) Sodium Level 137 MMOL/L (136-145) Potassium Level 3.7 MMOL/L (3.5-5.1) Chloride Level 101 MMOL/L (98-107) Carbon Dioxide Level 24 MMOL/L (21-32) Anion Gap 12 mmol/L (5-15) Blood Urea Nitrogen 19 mg/dL (7-18) H Creatinine 1.1 MG/DL (0.55-1.30) Estimated Glomerular Filtration Rate 53.3 mL/min (>60) Glucose Level 180 MG/DL (74-106) H Calcium Level 8.1 MG/DL (8.5-10.1) L Total Bilirubin 0.5 MG/DL (0.2-1.0) Aspartate Amino Transferase (AST) 14 U/L (15-37) L Alanine Aminotransferase (ALT) 16 U/L (12-78) Alkaline Phosphatase 49 U/L (46-116) Total Protein 8.6 G/DL (6.4-8.2) H Albumin 3.8 G/DL (3.4-5.0) Globulin 4.8 g/dL Albumin/Globulin Ratio 0.8 (1.0-2.7) L Lipase 127 U/L (73-393) Human Chorionic Gonadotropin, Quant < 1 mIU/mL (1-6) L Urine Color Yellow Urine Appearance Clear Urine pH 7 (4.5-8.0) Urine Specific Stone 1.015 (1.005-1.035) Urine Protein 3+ (NEGATIVE) H Urine Glucose (UA) Negative (NEGATIVE) Urine Ketones 1+ (NEGATIVE) H Urine Blood 5+ (NEGATIVE) H Urine Nitrite Negative (NEGATIVE) Urine Bilirubin Negative (NEGATIVE) Urine Urobilinogen Normal MG/DL (0.0-1.0) Urine Leukocyte Esterase 1+ (NEGATIVE) H Urine RBC 2-4 /HPF (0 - 2) H Urine WBC 2-4 /HPF (0 - 2) Urine Squamous Epithelial Cells Many /LPF (NONE/OCC) H Urine Bacteria Moderate /HPF (NONE) H Urine HCG, Qualitative Negative (NEGATIVE) Microbiology Date/Time Source Procedure Growth Status 11/12/19 11:23 Nasopharynx SARS-CoV-2 RdRp Gene Assay - Final Complete CT/MRI/US Diagnostic Results CT/MRI/US Diagnostic Results : Impression Procedure: CT Abdomen Pelvis WO Contrast Indication: Severe lower abdominal pain on the right side 10 out of 10 Technique: Spiral acquisitions obtained through the abdomen and pelvis. No oral contrast utilized, per emergency room physician request No IV contrast utilized, per referring physician request.. Multiplanar reconstructions were generated. Total dose length product 444 mGycm. CTDIvol(s) 7 mGy. Dose reduction achieved using automated exposure control Comparison: 09/29/2019 Findings: Lack of enteric contrast limits assessment of the GI tract. The appendix is prominent in caliber but demonstrates no pericholecystic inflammation and appears similar to the previous study. No evidence of diverticulosis or diverticulitis. No small bowel distention. No free or loculated intraperitoneal gas or fluid is evident. The distal esophagus, stomach, duodenum are unremarkable. Lack of IV contrast limits assessment of the solid organs. Gallbladder is mildly distended, but there is no evidence of pericholecystic inflammation. The liver, bile ducts, pancreas, spleen, adrenals are unremarkable. The kidneys are atrophic bilaterally. There is a transplant kidney in the right iliac fossa. A large partly cystic partly solid mass is seen in the anterior left adnexal region, adjacent to the uterus. This measures 9.7 x 6.7 cm, previously 7.5 x 6.7 cm. There is an intrauterine device in place. No pelvic or adenopathy. No retroperitoneal or mesenteric mass or adenopathy. The included lung bases are clear. The bones are unremarkable. Impression: 9.7 x 6.7 cm left adnexal partially cystic partially solid mass. Per technologist intake report, this is scheduled for removal in the morning. Limited assessment of the GI tract, due to lack of enteric contrast administration No definite acute abnormality Atrophic bilateral [place] kidneys. Right iliac fossa transplant kidney, also previously demonstrated The CT scanner at [facility] is accredited by the [employer] and the scans are performed using protocols designed to limit radiation exposure to as low as reasonably achievable to attain images of sufficient resolution adequate for diagnostic evaluation. Dictated By: Michel Cerda MD Electronically Signed By:Michel Cerda MD Signed Date/Time11/12/19 0371 CC: Farshad Back [id number] 0 Last Vital Signs Date Time Temp Pulse Resp B/P (MAP) Pulse Ox O2 Delivery O2 Flow Rate FiO2 11/12/19 11:14 97.0 92 18 120/70 (87) 97 Room Air Disposition: HOME, SELF-CARE Condition: Stable Scripts Ondansetron (Zofran) 4 Mg Tablet 4 MG ORAL Q8H PRN for Nausea & Vomiting, #10 TAB 0 Refills Prov: Farshad Back MD 11/12/19 Cephalexin* (KEFLEX*) 500 Mg Tablet 500 MG ORAL EVERY 6 HOURS, #40 CAP Prov: Farshad Back MD 11/12/19 Referrals: [facility]. [facility] Patient Instructions: Abdominal Pain, Adult, Urinary Tract Infection, [id number] Additional Instructions: The patient was provided with discharge instructions, notified to follow-up with a primary care doctor and or specialist in the next 24-48 hours, and to return to the ED if they have worsening of their symptoms. Please note that this report is being documented using IPDIA technology. This can lead to erroneous entry secondary to incorrect interpretation by the dictating instrument. Farshad Back MD Nov 12, 2019 11:29
[2019-11-12] MEDS ORDERED: HYDROmorphone 1mg/ml Carpuject IVP ONE (11:30)
[2019-11-12 11:54] LABS: BASOPHILS % (AUTO) 0.6 % (0.0-2.0); EOSINOPHILS % (AUTO) 0.7 % (0.0-3.0); HEMATOCRIT 34.3 % (37.0-47.0); HEMOGLOBIN 11.9 G/DL (12.0-16.0); LYMPHOCYTES % (AUTO) 12.3 % (20.0-45.0); MEAN CORPUSCULAR VOLUME 88 FL (80-99); MONOCYTES % (AUTO) 5.8 % (1.0-10.0); NEUTROPHILS % (AUTO) 80.5 % (45.0-75.0); PLATELET COUNT 369 K/UL (150-450); RED BLOOD COUNT 3.87 M/UL (4.20-5.40); RED CELL DISTRIBUTION WIDTH 11.5 % (11.6-14.8); WHITE BLOOD COUNT 16.4 K/UL (4.8-10.8)
[2019-11-12 12:00] VITALS: BP 118/64
[2019-11-12 12:05] LABS: ANION GAP 12 mmol/L (5-15); BLOOD UREA NITROGEN 19 mg/dL (7-18); CALCIUM 8.1 MG/DL (8.5-10.1); CARBON DIOXIDE 24 MMOL/L (21-32); CHLORIDE 101 MMOL/L (98-107); CREATININE 1.1 MG/DL (0.55-1.30); POTASSIUM 3.7 MMOL/L (3.5-5.1); SODIUM 137 MMOL/L (136-145)
[2019-11-12 12:10] LABS: ALANINE AMINOTRANSFERASE 16 U/L (12-78); ALBUMIN 3.8 G/DL (3.4-5.0); ALBUMIN/GLOBULIN RATIO 0.8 (1.0-2.7); ALKALINE PHOSPHATASE 49 U/L (46-116); ASPARTATE AMINO TRANSFERASE 14 U/L (15-37); BILIRUBIN,TOTAL 0.5 MG/DL (0.2-1.0)
[2019-11-12] MEDS ORDERED: Hydromorphone 0.5mg/0.5ml inj IVP ONE (12:15)
[2019-11-12 15:00] LABS: APPEARANCE,URINE CLEAR; BILIRUBIN, URINE NEGATIVE (NEGATIVE); GLUCOSE, URINE (UA) NEGATIVE (NEGATIVE); KETONES,URINE 1+ (NEGATIVE); LEUKOCYTE ESTERASE ,URINE 1+ (NEGATIVE); NITRITE,URINE NEGATIVE (NEGATIVE); PH,URINE 7 (4.5-8.0); PROTEIN,URINE 3+ (NEGATIVE); UROBILINOGEN,URINE NORMAL MG/DL (0.0-1.0)
[2019-11-12 15:03] LABS: COLOR,URINE YELLOW
[2019-11-12 15:05] VITALS: BP 117/66
[2019-11-12] MEDS ORDERED: CEPHALEXIN500 M1 ORAL (15:30)
[2019-11-12] MEDS ORDERED: ZOFRAN4 MG ORAL (15:31)
--- NOTE | 2019-11-12 15:50 | Diagnostic Imaging Report ---
Indication: Severe lower abdominal pain on the right side 10 out of 10 Technique: Spiral acquisitions obtained through the abdomen and pelvis. No oral contrast utilized, per emergency room physician request No IV contrast utilized, per referring physician request.. Multiplanar reconstructions were generated. Total dose length product 444 mGycm. CTDIvol(s) 7 mGy. Dose reduction achieved using automated exposure control Comparison: 09/29/2019 Findings: Lack of enteric contrast limits assessment of the GI tract. The appendix is prominent in caliber but demonstrates no pericholecystic inflammation and appears similar to the previous study. No evidence of diverticulosis or diverticulitis. No small bowel distention. No free or loculated intraperitoneal gas or fluid is evident. The distal esophagus, stomach, duodenum are unremarkable. Lack of IV contrast limits assessment of the solid organs. Gallbladder is mildly distended, but there is no evidence of pericholecystic inflammation. The liver, bile ducts, pancreas, spleen, adrenals are unremarkable. The kidneys are atrophic bilaterally. There is a transplant kidney in the right iliac fossa. A large partly cystic partly solid mass is seen in the anterior left adnexal region, adjacent to the uterus. This measures 9.7 x 6.7 cm, previously 7.5 x 6.7 cm. There is an intrauterine device in place. No pelvic or adenopathy. No retroperitoneal or mesenteric mass or adenopathy. The included lung bases are clear. The bones are unremarkable. Impression: 9.7 x 6.7 cm left adnexal partially cystic partially solid mass. Per technologist intake report, this is scheduled for removal in the morning. Limited assessment of the GI tract, due to lack of enteric contrast administration No definite acute abnormality Atrophic bilateral [place] kidneys. Right iliac fossa transplant kidney, also previously demonstrated The CT scanner at [facility] is accredited by the [employer] and the scans are performed using protocols designed to limit radiation exposure to as low as reasonably achievable to attain images of sufficient resolution adequate for diagnostic evaluation.
[2019-11-12 16:14] VITALS: BP 136/78
== END 2019-11-12 16:14 | disposition home or self-care (01) ==
LOC: EDBD 11:18 → EMR 11:20
DX: N39.0 Urinary tract infection, site not specified (principal); I12.0 Hypertensive chronic kidney disease with stage 5 chronic kidney disease or end stage renal disease; E11.22 Type 2 diabetes mellitus with diabetic chronic kidney disease; N18.6 End stage renal disease; Z94.0 Kidney transplant status; Z88.2 Allergy status to sulfonamides; Z88.6 Allergy status to analgesic agent; Z86.19 Personal history of other infectious and parasitic diseases
CPT/HCPCS: 36415; 74176; 80053; 81003; 81025; 83690; 84702; 85025; 85610; 85730; 87086; 96374; 96375; 96376; J1170; J2405; U0002; Z7502; 99284